=== PATIENT | male | born 1970 | race African-American/Black ===

== ENCOUNTER 2017-07-04 12:11 | Inpatient (IN) | payer OTHER ==
[2017-07-04 13:05] VITALS: BMI 36.6
--- NOTE | 2017-07-04 14:35 | HP ---
CIWA Score - CIWA Score Nausea/Vomitin Muscle Tremors: 3 Anxiety: 4-Mod. Anxious/Guarded Agitation: 2 Paroxysmal Sweats: 3 Orientation: 0-Oriented Tacttile Disturbances: 0-None Auditory Disturbances: 2-Mild Harshness/Frighten Visual Disturbances: 2-Mild Sensitivity Headache: 2-Mild CIWA-Ar Total Score: 20 Admission ROS S - HPI Chief Complaint: "I want to get better." Patient is here to Detox from Alcohol. Allergies/Adverse Reactions: Allergies Allergy/AdvReac Type Severity Reaction Status Date / Time Fish Containing Products Allergy Severe Difficulty Verified 07/04/17 14:00 Breathing peanut Allergy Severe Difficulty Verified 07/04/17 14:00 Breathing Penicillins Allergy Intermediate Hives Verified 07/04/17 14:00 History of Present Illness: Patient is a 47 YO male here to detox from alcohol. Patient had a previous detox admission at [facility] @ 2007. Longest period of sobriety in recent years: approx. 6 months (09/2016 - 02/2017). Exam Limitations: No Limitations - Ebola screening Have you traveled outside of the country in the last 21 days: No (N) Have you had contact with anyone from an Ebola affected area: No Have you been sick,other than usual withdrawal symptoms: No Do you have a fever: No - Review of Systems Constitutional: Chills, Diaphoresis, Fever, Loss of Appetite, Malaise, Night Sweats, Changes in sleep, Unintentional Wgt. Loss EENT: reports: No Symptoms Reported Respiratory: reports: No Symptoms reported Cardiac: reports: No Symptoms Reported GI: reports: Poor Appetite, Indigestion, Abdominal cramping : reports: No Symptoms Reported Musculoskeletal: reports: No Symptoms Reported Integumentary: reports: No Symptoms Reported Neuro: reports: Headache, Tremors Endocrine: reports: No Symptoms Reported Hematology: reports: No Symptoms Reported Psychiatric: reports: No Sypmtoms Reported, Judgement Intact, Mood/Affect Appropiate, Orientated x3, Anxious, Depressed (Only due to current circumstances.) Other Systems: Reviewed and Negative Patient History - Patient Medical History Hx Anemia: No Hx Asthma: No Hx Chronic Obstructive Pulmonary Disease (COPD): No Hx Cancer: No Hx Cardiac Disorders: No Hx Congestive Heart Failure: No Hx Hypertension: Yes (Takes HCTZ.) Hx Hypercholesterolemia: No Hx Pacemaker: No HX Cerebrovascular Accident: No Hx Seizures: No Hx Dementia: No Hx Diabetes: Yes (DM 2; On meds., Levemir Insulin.) Hx Gastrointestinal Disorders: No Hx Liver Disease: No Hx Genitourinary Disorders: No Hx Sexually Transmitted Disorders: No Hx Renal Disease (ESRD): No Hx Thyroid Disease: No Hx Human Immunodeficiency Virus (HIV): No (Last Tested: approx. 2 years ago: NEGATIVE.) Hx Hepatitis C: No (Uncertain if ever tested.) Hx Depression: Yes (Only due to current Life Circumstances.) Hx Suicide Attempt: No (PATIENT DENIES CURRENT SI / HI.) Hx Bipolar Disorder: No Hx Schizophrenia: No Other Medical History: DENIES. - Patient Surgical History Past Surgical History: No Hx Neurologic Surgery: No Hx Cataract Extraction: No Hx Cardiac Surgery: No Hx Lung Surgery: No Hx Breast Surgery: No Hx Breast Biopsy: No Hx Abdominal Surgery: No Hx Appendectomy: No Hx Cholecystectomy: No Hx Genitourinary Surgery: No Hx Orthopedic Surgery: No Other Surgical History: DENIES. Anesthesia Reaction: No - PPD History Previous Implant?: Yes Documented Results: Negative w/o proof Implanted On Prior [facility] Admission?: No PPD to be Administered?: Yes - Reproductive History Patient is a Female of Child Bearing Age (11 -55 yrs old): No (PATIENT IS MALE.) - Smoking Cessation Smoking history: Current every day smoker Have you smoked in the past 12 months: Yes Aproximately how many cigarettes per day: 5 Cigars Per Day: 0 Hx Chewing Tobacco Use: No Initiated information on smoking cessation: Yes 'Breaking Loose' booklet given: 07/04/17 (GIVEN ON UNIT.) - Substance & Tx. History Hx Alcohol Use: Yes Hx Substance Use: Yes Substance Use Type: Alcohol, Cocaine Hx Substance Use Treatment: Yes (1 Previous Detox admission at [facility] @ 2008.) - Substances Abused Alcohol Route: Oral Frequency: Daily Amount used: 2 PINT LIQUOR; 6PK BEER Age of first use: 20 Date of Last Use: 07/04/17 Cocaine Route: Inhalation Frequency: 1-2 times per week Amount used: $200 WEEKLY Age of first use: 29 Date of Last Use: 07/04/17 Family Disease History - Family Disease History Family Disease History: Diabetes: Mother, Other: Father (.) Admission Physical Exam S - Vital Signs Vital Signs: Vital Signs - 24 hr 07/04/17 13:03 Temperature 97.1 F L Pulse Rate 99 H Respiratory 20 Rate Blood Pressure 162/105 - Physical General Appearance: Yes: No Apparent Distress, Nourished, Appropriately Dressed , Tremorous, Anxious HEENTM: Yes: Hearing grossly Normal, Normocephalic, Normal Voice, [place], Pharynx Normal Respiratory: Yes: Chest Non-Tender, Lungs Clear, No Respiratory Distress, No Accessory Muscle Use Neck: Yes: No masses,lesions,Nodules, Supple, Trachea in good position Breast: Yes: Breast Exam Deferred Cardiology: Yes: Regular Rhythm, Regular Rate, S1, S2 Abdominal: Yes: Normal Bowel Sounds, Non Tender, Flat, Soft Genitourinary: Yes: Within Normal Limits Back: Yes: Normal Inspection Musculoskeletal: Yes: full range of Motion, Gait Steady Extremities: Yes: Normal Range of Motion, Non-Tender, Tremors Neurological: Yes: Fully Oriented, Alert, Normal Mood/Affect, Normal Response Integumentary: Yes: Normal Color, Dry, Warm Lymphatic: Yes: Within Normal Limits - Diagnostic (1) Alcohol dependence with uncomplicated withdrawal Current Visit: Yes Status: Acute (2) Cocaine dependence, uncomplicated Current Visit: Yes Status: Acute (3) Nicotine dependence Current Visit: Yes Status: Chronic Qualifiers: Nicotine product type: cigarettes Substance use status: uncomplicated Qualified Code(s): F17.210 - Nicotine dependence, cigarettes, uncomplicated (4) Hypertension Current Visit: Yes Status: Acute Qualifiers: Hypertension type: essential hypertension Qualified Code(s): I10 - Essential (primary) hypertension (5) Type II diabetes mellitus Current Visit: Yes Status: Chronic Qualifiers: Diabetes mellitus complication status: without complication Diabetes mellitus routing clerk insulin use: with routing clerk use Qualified Code(s): E11.9 - Type 2 diabetes mellitus without complications; Z79.4 - train starter (current) use of insulin; Z79.4 - correction (current) use of insulin; Z79.4 - correction ( current) use of insulin; Z79.4 - train starter (current) use of insulin Cleared for Admission S - Detox or Rehab [facility] Level of Care: Medically Managed Detox Regimen/Protocol: Librium [facility] Breath Alcohol Content Breath Alcohol Content: 0.053 Urine Drug Screen - Results Drug Screen Negative: No Urine Drug Screen Results: ANKUR-Cocaine, BZO-Benzodiazepines
[2017-07-04] MEDS ORDERED: P-EPHED 60MG/TRIPROLIDI 2.5MG TABLET PO PRN (15:05)
[2017-07-04] MEDS ORDERED: MENTHOL/PHENOL 1 EACH UD MM PRN (15:05)
[2017-07-04] MEDS ORDERED: guaiFENesin/D-METHORPHAN HB 10 ML UNIT-DOSE CUPS PO PRN (15:05)
[2017-07-04] MEDS ORDERED: ACETAMINOPHEN 325 MG TABLET (FP) PO PRN (15:05)
[2017-07-04] MEDS ORDERED: MAGNESIUM HYDROX 2400MG/30ML ORAL SUSPENSION 30 ML CUP PO PRN (15:05)
[2017-07-04] MEDS ORDERED: MAG HYDROX/AL HYDROX/SIMETH 30 ML UNIT-DOSE CUP PO PRN (15:05)
[2017-07-04] MEDS ORDERED: chlordiazePOXIDE HCL 25 MG CAPSULE PO PRN (15:05)
[2017-07-04] MEDS ORDERED: IBUPROFEN 400 MG TABLET (FP) PO PRN (15:05)
[2017-07-04] MEDS ORDERED: MAGNESIUM CITRATE 300 ML BOTTLE PO PRN (15:05)
[2017-07-04] MEDS ORDERED: LOPERAMIDE HCL 2 MG CAPSULE PO PRN (15:05)
[2017-07-04] MEDS ORDERED: chlordiazePOXIDE HCL 25 MG CAPSULE PO ONE (15:30)
[2017-07-04] MEDS: HYDROCHLOROTHIAZIDE 12.5 MG CAPSULE (FP) PO SCH (15:47)
[2017-07-04] MEDS ORDERED: INSULIN (NOVOLOG) ASPART 100 UNITS/ML 10ML VIAL ONE (16:47)
[2017-07-04] MEDS: metFORMIN HCL 500 MG TABLET (FP) PO SCH (18:02)
[2017-07-04] MEDS: chlordiazePOXIDE HCL 25 MG CAPSULE PO SCH ×2 (18:02→22:36)
[2017-07-04] MEDS: INSULIN SLIDING SCALE (NOVOLOG) 1 VIAL SQ SCH (18:04)
[2017-07-04 18:13] LABS: URINE APPEARANCE SLCLOUDY; URINE BILIRUBIN NEGATIVE (NEGATIVE); URINE BLOOD NEGATIVE (NEGATIVE); URINE COLOR YELLOW; URINE GLUCOSE (UA) NEGATIVE (NEGATIVE); URINE KETONE TRACE (NEGATIVE); URINE LEUK ESTERASE TRACE (NEGATIVE); URINE NITRITE NEGATIVE (NEGATIVE); URINE PROTEIN NEGATIVE (NEGATIVE)
[2017-07-04 18:30] LABS: EPI CELLS RARE /HPF (FEW); URINE MUCUS MANY
[2017-07-04] MEDS: THIAMINE HCL 100 MG TABLET (FP) PO SCH (22:36)
[2017-07-05] MEDS: chlordiazePOXIDE HCL 25 MG CAPSULE PO SCH ×4 (05:15→22:13)
[2017-07-05] MEDS: metFORMIN HCL 500 MG TABLET (FP) PO SCH ×2 (07:50→17:43)
[2017-07-05] MEDS: INSULIN SLIDING SCALE (NOVOLOG) 1 VIAL SQ SCH ×3 (07:50→17:44)
[2017-07-05] MEDS ORDERED: hydrOXYzine PAMOATE 50 MG CAPSULE (FP) PO PRN (09:00)
[2017-07-05 09:55] LABS: HEMATOCRIT 43.4 % (35.4-49); HEMOGLOBIN 14.1 GM/dL (11.7-16.9); MCH 27.2 pg (25.7-33.7); MCHC 32.4 g/dl (32.0-35.9); MEAN CELL VOLUME 83.9 fl (80-96); PLATELET COUNT 198 K/MM3 (134-434); RBC 5.18 M/mm3 (4.00-5.60); RDW 13.2 % (11.9-15.9); WHITE BLOOD COUNT 6.3 K/mm3 (4.0-10.0)
[2017-07-05] MEDS: PRENATAL VITAMINS W/ FOLIC ACID TABLET (FP) PO SCH (10:10)
[2017-07-05] MEDS: HYDROCHLOROTHIAZIDE 12.5 MG CAPSULE (FP) PO SCH (10:10)
[2017-07-05 10:11] LABS: ALBUMIN 4.2 g/dl (3.4-5.0); ANION GAP 11 (8-16); BLOOD UREA NITROGEN 12 mg/dL (7-18); CALCIUM 8.5 mg/dL (8.5-10.1); CHLORIDE 99 mmol/L (98-107); CO2 24 mmol/L (21-32); CREATININE 1.1 mg/dL (0.7-1.3); GLUCOSE,RANDOM 206 mg/dL (74-106); POTASSIUM 3.7 mmol/L (3.5-5.1); SGOT/AST 16 U/L (15-37); SGPT/ALT 26 U/L (12-78); SODIUM 134 mmol/L (136-145)
[2017-07-05 10:13] LABS: ALK PHOS 106 U/L (45-117); BILIRUBIN,TOTAL 1.3 mg/dL (0.2-1.0); TOT PROT 7.5 g/dl (6.4-8.2)
--- NOTE | 2017-07-05 10:17 | EKG ---
Test Reason : Blood Pressure : / mmHG Vent. Rate : 093 BPM Atrial Rate : 093 BPM P-R Int : 118 ms QRS Dur : 094 ms QT Int : 368 ms P-R-T Axes : 061 045 015 degrees QTc Int : 457 ms NORMAL SINUS RHYTHM NORMAL ECG NO PREVIOUS ECGS AVAILABLE Confirmed by RUDY JAMA MD ([id number]) on 07/05/2017 10:17:04 AM Referred By: Confirmed By:RUDY JAMA MD
--- NOTE | 2017-07-05 14:57 | PN ---
[facility] CIWA - CIWA Score Nausea/Vomitin-No Nausea/No Vomiting Muscle Tremors: None Anxiety: 4-Mod. Anxious/Guarded Agitation: 4-Moderately Restless Paroxysmal Sweats: 3 Orientation: 0-Oriented Tacttile Disturbances: 3-Moderate Itch/Numb/Burn Auditory Disturbances: 2-Mild Harshness/Frighten Visual Disturbances: 2-Mild Sensitivity Headache: 0-None Present CIWA-Ar Total Score: 18 S Progress Note (SOAP) Subjective: Sweating, Anxious, Diarrhea, Sweating. Objective: PT. A & O X 3, OBSERVED AMBULATING ON UNIT. NO ACUTE DISTRESS. 07/05/17 14:57 Vital Signs Temperature 97.0 F L 07/05/17 13:24 Pulse Rate 83 07/05/17 13:24 Respiratory Rate 18 07/05/17 13:24 Blood Pressure 132/83 07/05/17 13:24 O2 Sat by Pulse Oximetry (%) Laboratory Tests 07/04/17 07/04/17 07/04/17 14:37 16:29 17:00 WBC RBC Hgb Hct MCV MCH MCHC RDW Plt Count MPV Sodium Potassium Chloride Carbon Dioxide Anion Gap BUN Creatinine Creat Clearance w eGFR POC Glucometer 241 229 Random Glucose Calcium Total Bilirubin AST ALT Alkaline Phosphatase Total Protein Albumin Urine Color Yellow Urine Appearance Slcloudy Urine pH 5.0 Ur Specific [place] 1.019 Urine Protein Negative Urine Glucose (UA) Negative Urine Ketones Trace H Urine Blood Negative Urine Nitrite Negative Urine Bilirubin Negative Urine Urobilinogen 2.0 Ur Leukocyte Esterase Trace Urine WBC (Auto) 3 Urine RBC (Auto) <1 Ur Epithelial Cells Rare Urine Mucus Many RPR Titer 07/05/17 07/05/17 07/05/17 05:15 06:00 06:00 WBC 6.3 RBC 5.18 Hgb 14.1 Hct 43.4 MCV 83.9 MCH 27.2 MCHC 32.4 RDW 13.2 Plt Count 198 MPV 9.0 Sodium 134 L Potassium 3.7 Chloride 99 Carbon Dioxide 24 Anion Gap 11 BUN 12 Creatinine 1.1 Creat Clearance w eGFR > 60 POC Glucometer 181 Random Glucose 206 H Calcium 8.5 Total Bilirubin 1.3 H AST 16 ALT 26 Alkaline Phosphatase 106 Total Protein 7.5 Albumin 4.2 Urine Color Urine Appearance Urine pH Ur Specific [place] Urine Protein Urine Glucose (UA) Urine Ketones Urine Blood Urine Nitrite Urine Bilirubin Urine Urobilinogen Ur Leukocyte Esterase Urine WBC (Auto) Urine RBC (Auto) Ur Epithelial Cells Urine Mucus RPR Titer 07/05/17 06:00 WBC RBC Hgb Hct MCV MCH MCHC RDW Plt Count MPV Sodium Potassium Chloride Carbon Dioxide Anion Gap BUN Creatinine Creat Clearance w eGFR POC Glucometer Random Glucose Calcium Total Bilirubin AST ALT Alkaline Phosphatase Total Protein Albumin Urine Color Urine Appearance Urine pH Ur Specific [place] Urine Protein Urine Glucose (UA) Urine Ketones Urine Blood Urine Nitrite Urine Bilirubin Urine Urobilinogen Ur Leukocyte Esterase Urine WBC (Auto) Urine RBC (Auto) Ur Epithelial Cells Urine Mucus RPR Titer Nonreactive LABS NOTED. Assessment: 07/05/17 14:57 WITHDRAWAL SYMPTOMS. Plan: CONTINUE DETOX. INCREASE DAILY PO FLUID INTAKE. PRN IMMODIUM FOR DIARRHEA.
[2017-07-05] MEDS ORDERED: INSULIN (NOVOLOG) ASPART 100 UNITS/ML 10ML VIAL ONE (16:44)
[2017-07-05] MEDS: THIAMINE HCL 100 MG TABLET (FP) PO SCH (22:13)
[2017-07-06] MEDS: chlordiazePOXIDE HCL 25 MG CAPSULE PO SCH ×2 (07:14→10:09)
[2017-07-06] MEDS: INSULIN SLIDING SCALE (NOVOLOG) 1 VIAL SQ SCH ×3 (07:21→16:41)
[2017-07-06] MEDS: metFORMIN HCL 500 MG TABLET (FP) PO SCH ×2 (08:00→16:41)
[2017-07-06] MEDS: PRENATAL VITAMINS W/ FOLIC ACID TABLET (FP) PO SCH (10:09)
[2017-07-06] MEDS: HYDROCHLOROTHIAZIDE 12.5 MG CAPSULE (FP) PO SCH (10:09)
--- NOTE | 2017-07-06 15:51 | PN ---
[facility] CIWA - CIWA Score Nausea/Vomitin-No Nausea/No Vomiting Muscle Tremors: 2 Anxiety: 4-Mod. Anxious/Guarded Agitation: 3 Paroxysmal Sweats: 3 Orientation: 0-Oriented Tacttile Disturbances: 3-Moderate Itch/Numb/Burn Auditory Disturbances: 0-None Visual Disturbances: 0-None Headache: 0-None Present CIWA-Ar Total Score: 15 [facility] Progress Note (SOAP) Subjective: Tremors, Body Aches, Anxious, Sweating. Objective: PT. A & O X 3, OBSERVED AMBULATING ON UNIT. NO ACUTE DISTRESS. 07/06/17 15:50 Vital Signs Temperature 96.5 F L 07/06/17 09:39 Pulse Rate 90 07/06/17 09:39 Respiratory Rate 18 07/06/17 09:39 Blood Pressure 127/80 07/06/17 09:39 O2 Sat by Pulse Oximetry (%) Laboratory Tests 07/04/17 07/04/17 07/04/17 14:37 16:29 17:00 WBC RBC Hgb Hct MCV MCH MCHC RDW Plt Count MPV Sodium Potassium Chloride Carbon Dioxide Anion Gap BUN Creatinine Creat Clearance w eGFR POC Glucometer 241 229 Random Glucose Calcium Total Bilirubin AST ALT Alkaline Phosphatase Total Protein Albumin Urine Color Yellow Urine Appearance Slcloudy Urine pH 5.0 Ur Specific [place] 1.019 Urine Protein Negative Urine Glucose (UA) Negative Urine Ketones Trace H Urine Blood Negative Urine Nitrite Negative Urine Bilirubin Negative Urine Urobilinogen 2.0 Ur Leukocyte Esterase Trace Urine WBC (Auto) 3 Urine RBC (Auto) <1 Ur Epithelial Cells Rare Urine Mucus Many RPR Titer 07/05/17 07/05/17 07/05/17 05:15 06:00 06:00 WBC 6.3 RBC 5.18 Hgb 14.1 Hct 43.4 MCV 83.9 MCH 27.2 MCHC 32.4 RDW 13.2 Plt Count 198 MPV 9.0 Sodium 134 L Potassium 3.7 Chloride 99 Carbon Dioxide 24 Anion Gap 11 BUN 12 Creatinine 1.1 Creat Clearance w eGFR > 60 POC Glucometer 181 Random Glucose 206 H Calcium 8.5 Total Bilirubin 1.3 H AST 16 ALT 26 Alkaline Phosphatase 106 Total Protein 7.5 Albumin 4.2 Urine Color Urine Appearance Urine pH Ur Specific [place] Urine Protein Urine Glucose (UA) Urine Ketones Urine Blood Urine Nitrite Urine Bilirubin Urine Urobilinogen Ur Leukocyte Esterase Urine WBC (Auto) Urine RBC (Auto) Ur Epithelial Cells Urine Mucus RPR Titer 07/05/17 07/05/17 06:00 16:20 WBC RBC Hgb Hct MCV MCH MCHC RDW Plt Count MPV Sodium Potassium Chloride Carbon Dioxide Anion Gap BUN Creatinine Creat Clearance w eGFR POC Glucometer 226 Random Glucose Calcium Total Bilirubin AST ALT Alkaline Phosphatase Total Protein Albumin Urine Color Urine Appearance Urine pH Ur Specific [place] Urine Protein Urine Glucose (UA) Urine Ketones Urine Blood Urine Nitrite Urine Bilirubin Urine Urobilinogen Ur Leukocyte Esterase Urine WBC (Auto) Urine RBC (Auto) Ur Epithelial Cells Urine Mucus RPR Titer Nonreactive LABS NOTED. Assessment: 07/06/17 15:50 WITHDRAWAL SYMPTOMS. Plan: CONTINUE DETOX.
[2017-07-06] MEDS ORDERED: INSULIN (NOVOLOG) ASPART 100 UNITS/ML 10ML VIAL ONE (16:31)
[2017-07-06] MEDS: chlordiazePOXIDE 5 MG CAPSULE PO SCH ×2 (16:41→23:36)
[2017-07-06] MEDS: THIAMINE HCL 100 MG TABLET (FP) PO SCH (23:36)
[2017-07-07] MEDS: chlordiazePOXIDE 5 MG CAPSULE PO SCH ×2 (06:25→10:17)
[2017-07-07] MEDS: metFORMIN HCL 500 MG TABLET (FP) PO SCH ×2 (06:33→17:25)
[2017-07-07] MEDS: INSULIN SLIDING SCALE (NOVOLOG) 1 VIAL SQ SCH ×3 (06:33→17:25)
[2017-07-07] MEDS: HYDROCHLOROTHIAZIDE 12.5 MG CAPSULE (FP) PO SCH (10:17)
[2017-07-07] MEDS: PRENATAL VITAMINS W/ FOLIC ACID TABLET (FP) PO SCH (10:17)
--- NOTE | 2017-07-07 15:07 | PN ---
[facility] Progress Note (SOAP) Subjective: Anxious, Fatigue, Body Aches. Objective: PT A & O X 3, OBSERVED AMBULATING ON UNIT. NO ACUTE DISTRESS. 07/07/17 15:05 Vital Signs Temperature 98.1 F 07/07/17 09:50 Pulse Rate 88 07/07/17 09:50 Respiratory Rate 20 07/07/17 09:50 Blood Pressure 147/92 07/07/17 09:50 O2 Sat by Pulse Oximetry (%) Laboratory Tests 07/04/17 07/04/17 07/04/17 14:37 16:29 17:00 WBC RBC Hgb Hct MCV MCH MCHC RDW Plt Count MPV Sodium Potassium Chloride Carbon Dioxide Anion Gap BUN Creatinine Creat Clearance w eGFR POC Glucometer 241 229 Random Glucose Calcium Total Bilirubin AST ALT Alkaline Phosphatase Total Protein Albumin Urine Color Yellow Urine Appearance Slcloudy Urine pH 5.0 Ur Specific [place] 1.019 Urine Protein Negative Urine Glucose (UA) Negative Urine Ketones Trace H Urine Blood Negative Urine Nitrite Negative Urine Bilirubin Negative Urine Urobilinogen 2.0 Ur Leukocyte Esterase Trace Urine WBC (Auto) 3 Urine RBC (Auto) <1 Ur Epithelial Cells Rare Urine Mucus Many RPR Titer 07/05/17 07/05/17 07/05/17 05:15 06:00 06:00 WBC 6.3 RBC 5.18 Hgb 14.1 Hct 43.4 MCV 83.9 MCH 27.2 MCHC 32.4 RDW 13.2 Plt Count 198 MPV 9.0 Sodium 134 L Potassium 3.7 Chloride 99 Carbon Dioxide 24 Anion Gap 11 BUN 12 Creatinine 1.1 Creat Clearance w eGFR > 60 POC Glucometer 181 Random Glucose 206 H Calcium 8.5 Total Bilirubin 1.3 H AST 16 ALT 26 Alkaline Phosphatase 106 Total Protein 7.5 Albumin 4.2 Urine Color Urine Appearance Urine pH Ur Specific [place] Urine Protein Urine Glucose (UA) Urine Ketones Urine Blood Urine Nitrite Urine Bilirubin Urine Urobilinogen Ur Leukocyte Esterase Urine WBC (Auto) Urine RBC (Auto) Ur Epithelial Cells Urine Mucus RPR Titer 07/05/17 07/05/17 07/06/17 06:00 16:20 15:57 WBC RBC Hgb Hct MCV MCH MCHC RDW Plt Count MPV Sodium Potassium Chloride Carbon Dioxide Anion Gap BUN Creatinine Creat Clearance w eGFR POC Glucometer 226 364 Random Glucose Calcium Total Bilirubin AST ALT Alkaline Phosphatase Total Protein Albumin Urine Color Urine Appearance Urine pH Ur Specific [place] Urine Protein Urine Glucose (UA) Urine Ketones Urine Blood Urine Nitrite Urine Bilirubin Urine Urobilinogen Ur Leukocyte Esterase Urine WBC (Auto) Urine RBC (Auto) Ur Epithelial Cells Urine Mucus RPR Titer Nonreactive LABS NOTED. Assessment: 07/07/17 15:06 WITHDRAWAL SYMPTOMS. Plan: CONTINUE DETOX.
[2017-07-07] MEDS ORDERED: INSULIN (NOVOLOG) ASPART 100 UNITS/ML 10ML VIAL ONE (17:02)
[2017-07-07] MEDS: chlordiazePOXIDE HCL 10 MG CAPSULE PO SCH ×2 (17:27→23:01)
[2017-07-07 21:31] VITALS: BP 130/87; PULSE 102; TEMP 97.4
[2017-07-07] MEDS: THIAMINE HCL 100 MG TABLET (FP) PO SCH (23:01)
[2017-07-08] MEDS: chlordiazePOXIDE HCL 10 MG CAPSULE PO SCH (06:27)
[2017-07-08] MEDS: INSULIN SLIDING SCALE (NOVOLOG) 1 VIAL SQ SCH (06:31)
[2017-07-08] MEDS: metFORMIN HCL 500 MG TABLET (FP) PO SCH (06:31)
--- NOTE | 2017-07-08 11:57 | DS ---
[facility] Detox Discharge Summary Admission Date: 07/04/17 Discharge Date: 07/08/17 - History Present History: Alcohol Dependence, Cocaine Dependence Additional Comments: DETOX COMPLETED. PT D/C'D AND OUT OF UNIT EARLY TODAY. Pertinent Past History: DM HTN DEPRESSION - Physical Exam Results Vital Signs: Vital Signs Temperature 97.4 F L 07/07/17 21:30 Pulse Rate 102 H 07/07/17 21:30 Respiratory Rate 20 07/08/17 03:30 Blood Pressure 130/87 07/07/17 21:30 O2 Sat by Pulse Oximetry (%) Pertinent Admission Physical Exam Findings: WITHDRAWAL SX - Treatment Hospital Course: Detox Protocol Followed, Detoxed Safely, Responded well - Medication Discharge Medications: Ambulatory Orders Hydrochlorothiazide [Hctz -] 12.5 mg PO DAILY 07/04/17 Metformin HCl [Glucophage -] 500 mg PO BID 07/04/17 - Diagnosis (1) Alcohol dependence with uncomplicated withdrawal Status: Acute (2) Cocaine dependence, uncomplicated Status: Acute (3) Hypertension Status: Chronic Qualifiers: Hypertension type: essential hypertension Qualified Code(s): I10 - Essential (primary) hypertension (4) Nicotine dependence Status: Acute Qualifiers: Nicotine product type: cigarettes Substance use status: in withdrawal Qualified Code(s): F17.213 - Nicotine dependence, cigarettes, with withdrawal (5) Type II diabetes mellitus Status: Chronic Qualifiers: Diabetes mellitus complication status: without complication Diabetes mellitus skilled nursing insulin use: with skilled nursing use Qualified Code(s): E11.9 - Type 2 diabetes mellitus without complications; Z79.4 - shelter (current) use of insulin; Z79.4 - shelter (current) use of insulin; Z79.4 - shelter ( current) use of insulin; Z79.4 - shelter (current) use of insulin - AMA Did Patient Leave Against Medical Advice: No
== END 2017-07-08 07:58 | disposition home or self-care (01) | DRG 774 ==
LOC: YASAS 12:11 → Y3N 15:24
PROVIDERS: ADMIT Internal Medicine; ATTEND Internal Medicine
PROC: HZ2ZZZZ Detoxification Services for Substance Abuse Treatment (ICD-10-PCS; principal; 2017-07-04)
DX: F10.230 Alcohol dependence with withdrawal, uncomplicated (principal); F14.20 Cocaine dependence, uncomplicated; F17.213 Nicotine dependence, cigarettes, with withdrawal; I10 Essential (primary) hypertension; E11.9 Type 2 diabetes mellitus without complications; Z79.4 Long term (current) use of insulin; Z79.84 Long term (current) use of oral hypoglycemic drugs; Z91.010 Allergy to peanuts; Z91.013 Allergy to seafood
CPT/HCPCS: 36415; 80053; 81003; 81015; 82962; 85027; 86593; 93005; 93010

== ENCOUNTER 2017-10-03 11:08 | Inpatient (IN) | payer OTHER ==
[2017-10-03 12:27] VITALS: BMI 35.4
--- NOTE | 2017-10-03 14:09 | HP ---
CIWA Score - CIWA Score Nausea/Vomitin-Mild Nausea/No Vomiting Muscle Tremors: 4-Moderate,w/Arms Extend Anxiety: 4-Mod. Anxious/Guarded Agitation: 4-Moderately Restless Paroxysmal Sweats: 1-Minimal Palms Moist Orientation: 0-Oriented Tacttile Disturbances: 1-Very Mild Itch/Numbness Auditory Disturbances: 0-None Visual Disturbances: 0-None Headache: 0-None Present CIWA-Ar Total Score: 15 Admission ROS S - HPI Chief Complaint: withdrawal sx alcohol Allergies/Adverse Reactions: Allergies Allergy/AdvReac Type Severity Reaction Status Date / Time Fish Containing Products Allergy Severe Difficulty Verified 07/04/17 14:00 Breathing peanut Allergy Severe Difficulty Verified 07/04/17 14:00 Breathing Penicillins Allergy Intermediate Hives Verified 07/04/17 14:00 History of Present Illness: 47 years old male with long history of alcohol dependence has hypertension diabetes ii and depression is admitted to detox Exam Limitations: No Limitations - Ebola screening Have you traveled outside of the country in the last 21 days: No Have you had contact with anyone from an Ebola affected area: No Have you been sick,other than usual withdrawal symptoms: No Do you have a fever: No - Review of Systems Constitutional: Changes in sleep, Weight Stable EENT: reports: No Symptoms Reported Respiratory: reports: No Symptoms reported Cardiac: reports: No Symptoms Reported GI: reports: Nausea, Poor Fluid Intake, Abdominal cramping : reports: No Symptoms Reported Musculoskeletal: reports: Back Pain Integumentary: reports: No Symptoms Reported Neuro: reports: Tremors Endocrine: reports: Increased Urine Hematology: reports: No Symptoms Reported Psychiatric: reports: Judgement Intact, Orientated x3, Depressed Other Systems: Reviewed and Negative Patient History - Patient Medical History Hx Anemia: No Hx Asthma: No Hx Chronic Obstructive Pulmonary Disease (COPD): No Hx Cancer: No Hx Cardiac Disorders: No Hx Congestive Heart Failure: No Hx Hypertension: Yes (Takes HCTZ.) Hx Hypercholesterolemia: No Hx Pacemaker: No HX Cerebrovascular Accident: No Hx Seizures: No Hx Dementia: No Hx Diabetes: Yes (DM 2; On meds., Levemir Insulin.) Hx Gastrointestinal Disorders: No Hx Liver Disease: No Hx Genitourinary Disorders: No Hx Sexually Transmitted Disorders: No Hx Renal Disease (ESRD): No Hx Thyroid Disease: No Hx Human Immunodeficiency Virus (HIV): No (Last Tested: approx. 2 years ago: NEGATIVE.) Hx Hepatitis C: No (Uncertain if ever tested.) Hx Depression: Yes (Only due to current Life Circumstances.) Hx Suicide Attempt: No (PATIENT DENIES CURRENT SI / HI.) Hx Bipolar Disorder: No Hx Schizophrenia: No - Patient Surgical History Past Surgical History: No Hx Neurologic Surgery: No Hx Cataract Extraction: No Hx Cardiac Surgery: No Hx Lung Surgery: No Hx Breast Surgery: No Hx Breast Biopsy: No Hx Abdominal Surgery: No Hx Appendectomy: No Hx Cholecystectomy: No Hx Genitourinary Surgery: No Hx Orthopedic Surgery: No Other Surgical History: DENIES. - PPD History Previous Implant?: Yes Documented Results: Negative w/proof Implanted On Prior [facility] Admission?: Yes Date: 07/06/17 PPD to be Administered?: No - Smoking Cessation Smoking history: Former smoker Have you smoked in the past 12 months: No Aproximately how many cigarettes per day: 0 Cigars Per Day: 0 Hx Chewing Tobacco Use: No Initiated information on smoking cessation: No - Substance & Tx. History Hx Alcohol Use: Yes Hx Substance Use: Yes Substance Use Type: Alcohol Hx Substance Use Treatment: Yes (07/2017 [facility] - Substances Abused Alcohol Route: Oral Frequency: Daily Amount used: 3 pints vodka Age of first use: 9 Date of Last Use: 10/03/17 Family Disease History - Family Disease History Family Disease History: Diabetes: Mother (), Other: Father (.), Mother Admission Physical Exam S - Vital Signs Vital Signs: Vital Signs - 24 hr 10/03/17 12:07 Temperature 97.2 F L Pulse Rate 108 H Respiratory 20 Rate Blood Pressure 145/83 - Physical General Appearance: Yes: Nourished, Appropriately Dressed, Mild Distress, Tremorous, Irritable, Sweating, Anxious HEENTM: Yes: Hearing grossly Normal, Normocephalic, Normal Voice Respiratory: Yes: Chest Non-Tender, Lungs Clear, Normal Breath Sounds, No Respiratory Distress, No Accessory Muscle Use Neck: Yes: Supple, Trachea in good position Breast: Yes: Breasts Symetrical Cardiology: Yes: Regular Rhythm, S1, S2, Tachycardia (cocaine) Abdominal: Yes: Non Tender, Flat, Increased Bowel Sounds Genitourinary: Yes: Within Normal Limits Back: Yes: Normal Inspection Musculoskeletal: Yes: full range of Motion, Gait Steady, Back pain Extremities: Yes: Normal Inspection, Normal Range of Motion, Non-Tender, Tremors Neurological: Yes: Fully Oriented, Alert, Motor Strength 5/5, Normal Response, Depressed Affect Integumentary: Yes: Warm Lymphatic: Yes: Within Normal Limits - Diagnostic (1) Anxiety with depression Current Visit: Yes Status: Suspected (2) Alcohol dependence with uncomplicated withdrawal Current Visit: Yes Status: Acute (3) Hypertension Current Visit: Yes Status: Chronic Qualifiers: Hypertension type: essential hypertension Qualified Code(s): I10 - Essential (primary) hypertension (4) Type II diabetes mellitus Current Visit: Yes Status: Chronic Qualifiers: Diabetes mellitus intermediate insulin use: without ocean transportation intermediary use Diabetes mellitus complication status: without complication Qualified Code(s): E11.9 - Type 2 diabetes mellitus without complications Cleared for Admission [facility] - Detox or Rehab [facility] Level of Care: Medically Managed Detox Regimen/Protocol: Librium [facility] Breath Alcohol Content Breath Alcohol Content: 0.049 Urine Drug Screen - Results Drug Screen Negative: No Urine Drug Screen Results: ANKUR-Cocaine, BZO-Benzodiazepines
[2017-10-03] MEDS ORDERED: MAG HYDROX/AL HYDROX/SIMETH 30 ML UNIT-DOSE CUP PO PRN (14:21)
[2017-10-03] MEDS ORDERED: IBUPROFEN 400 MG TABLET (FP) PO PRN (14:21)
[2017-10-03] MEDS ORDERED: P-EPHED 60MG/TRIPROLIDI 2.5MG TABLET PO PRN (14:21)
[2017-10-03] MEDS ORDERED: guaiFENesin/D-METHORPHAN HB 10 ML UNIT-DOSE CUPS PO PRN (14:21)
[2017-10-03] MEDS ORDERED: MENTHOL/PHENOL 1 EACH UD MM PRN (14:21)
[2017-10-03] MEDS ORDERED: MAGNESIUM HYDROX 2400MG/30ML ORAL SUSPENSION 30 ML CUP PO PRN (14:21)
[2017-10-03] MEDS ORDERED: LOPERAMIDE HCL 2 MG CAPSULE PO PRN (14:21)
[2017-10-03] MEDS ORDERED: ACETAMINOPHEN 325 MG TABLET (FP) PO PRN (14:21)
[2017-10-03] MEDS ORDERED: chlordiazePOXIDE HCL 25 MG CAPSULE PO PRN (14:21)
[2017-10-03] MEDS ORDERED: MAGNESIUM CITRATE 300 ML BOTTLE PO PRN (14:21)
[2017-10-03] MEDS ORDERED: INSULIN (NOVOLOG) ASPART 100 UNITS/ML 10ML VIAL ONE (18:15)
[2017-10-03] MEDS: metFORMIN HCL 500 MG TABLET (FP) PO SCH (18:17)
[2017-10-03] MEDS: INSULIN SLIDING SCALE (NOVOLOG) 1 VIAL SQ SCH ×2 (18:18→22:57)
[2017-10-03] MEDS: THIAMINE HCL 100 MG TABLET (FP) PO SCH (22:34)
[2017-10-03] MEDS: chlordiazePOXIDE HCL 25 MG CAPSULE PO SCH (22:34)
[2017-10-03] MEDS: MELATONIN 5 MG TABLETS PO PRN (22:35)
[2017-10-04] MEDS: chlordiazePOXIDE HCL 25 MG CAPSULE PO SCH ×4 (06:56→22:22)
[2017-10-04] MEDS: metFORMIN HCL 500 MG TABLET (FP) PO SCH ×2 (07:00→18:10)
[2017-10-04 09:48] LABS: HEMATOCRIT 44.2 % (35.4-49); HEMOGLOBIN 14.8 GM/dL (11.7-16.9); MCH 28.1 pg (25.7-33.7); MCHC 33.6 g/dl (32.0-35.9); MEAN CELL VOLUME 83.8 fl (80-96); PLATELET COUNT 216 K/MM3 (134-434); RBC 5.27 M/mm3 (4.00-5.60); RDW 13.7 % (11.9-15.9); WHITE BLOOD COUNT 5.8 K/mm3 (4.0-10.0)
--- NOTE | 2017-10-04 09:51 | EKG ---
Test Reason : Blood Pressure : / mmHG Vent. Rate : 094 BPM Atrial Rate : 094 BPM P-R Int : 116 ms QRS Dur : 084 ms QT Int : 376 ms P-R-T Axes : 063 032 041 degrees QTc Int : 470 ms NORMAL SINUS RHYTHM NONSPECIFIC ST ABNORMALITY WHEN COMPARED WITH ECG OF 04-JUL-2017 15:57, NO SIGNIFICANT CHANGE WAS FOUND Confirmed by RUDY JAMA MD ([id number]) on 10/04/2017 9:51:09 AM Referred By: Confirmed By:RUDY JAMA MD
[2017-10-04] MEDS: INSULIN (LEVEMIR) 100 UNITS/ML UNITS SQ SCH (10:10)
[2017-10-04] MEDS: HYDROCHLOROTHIAZIDE 12.5 MG CAPSULE (FP) PO SCH (10:13)
[2017-10-04] MEDS: PRENATAL VITAMINS W/ FOLIC ACID TABLET (FP) PO SCH (10:13)
[2017-10-04] MEDS: INSULIN SLIDING SCALE (NOVOLOG) 1 VIAL SQ SCH ×3 (10:23→21:25)
[2017-10-04 10:51] LABS: CHLORIDE 98 mmol/L (98-107); POTASSIUM 4.4 mmol/L (3.5-5.1); SODIUM 133 mmol/L (136-145)
[2017-10-04 11:05] LABS: ALBUMIN 4.4 g/dl (3.4-5.0); ALK PHOS 123 U/L (45-117); ANION GAP 8 (8-16); BILIRUBIN,TOTAL 0.9 mg/dL (0.2-1.0); BLOOD UREA NITROGEN 17 mg/dL (7-18); CALCIUM 9.3 mg/dL (8.5-10.1); CO2 27 mmol/L (21-32); CREATININE 1.2 mg/dL (0.7-1.3); GLUCOSE,RANDOM 279 mg/dL (74-106); SGOT/AST 15 U/L (15-37); SGPT/ALT 26 U/L (12-78); TOT PROT 8.3 g/dl (6.4-8.2)
--- NOTE | 2017-10-04 13:43 | CONSULT ---
[facility] Psychiatric Consult - Data Date of interview: 10/04/17 Identifying data: Director Medical Economics approached patient for psychiatric consultation. Pt. refused. Patient stated to journalists and other writers, " nah i have nothing to say to you."
--- NOTE | 2017-10-04 13:44 | PN ---
S CIWA - CIWA Score Nausea/Vomitin Muscle Tremors: 3 Anxiety: 2 Agitation: 2 Paroxysmal Sweats: 1-Minimal Palms Moist Orientation: 0-Oriented Tacttile Disturbances: 1-Very Mild Itch/Numbness Auditory Disturbances: 1-Very Mild Visual Disturbances: 0-None Headache: 2-Mild CIWA-Ar Total Score: 15 S Progress Note (SOAP) Subjective: ALERT,IRRITABLE,ANXIOUS,INTERRUPTED SLEEP,TREMOR Objective: 10/04/17 13:42 Vital Signs Temperature 97.9 F 10/04/17 10:24 Pulse Rate 96 H 10/04/17 10:24 Respiratory Rate 18 10/04/17 10:24 Blood Pressure 143/81 10/04/17 10:24 O2 Sat by Pulse Oximetry (%) EKG NSR,NORMAL ECG,PROLONG QT 376/470 NO CHEST PAIN,NO SOB,NO DIZZINESS Laboratory Last Values WBC 5.8 K/mm3 (4.0-10.0) 10/04/17 06:00 RBC 5.27 M/mm3 (4.00-5.60) 10/04/17 06:00 Hgb 14.8 GM/dL (11.7-16.9) 10/04/17 06:00 Hct 44.2 % (35.4-49) 10/04/17 06:00 MCV 83.8 fl (80-96) 10/04/17 06:00 MCH 28.1 pg (25.7-33.7) 10/04/17 06:00 MCHC 33.6 g/dl (32.0-35.9) 10/04/17 06:00 RDW 13.7 % (11.9-15.9) 10/04/17 06:00 Plt Count 216 K/MM3 (134-434) 10/04/17 06:00 MPV 9.0 fl (7.5-11.1) 10/04/17 06:00 Sodium 133 mmol/L (136-145) L 10/04/17 06:00 Potassium 4.4 mmol/L (3.5-5.1) 10/04/17 06:00 Chloride 98 mmol/L (98-107) 10/04/17 06:00 Carbon Dioxide 27 mmol/L (21-32) 10/04/17 06:00 Anion Gap 8 (8-16) 10/04/17 06:00 BUN 17 mg/dL (7-18) D 10/04/17 06:00 Creatinine 1.2 mg/dL (0.7-1.3) 10/04/17 06:00 Creat Clearance w eGFR > 60 (>60) 10/04/17 06:00 POC Glucometer 276 UNITS (80-120) 10/04/17 06:58 Random Glucose 279 mg/dL (74-106) H D 10/04/17 06:00 Calcium 9.3 mg/dL (8.5-10.1) 10/04/17 06:00 Total Bilirubin 0.9 mg/dL (0.2-1.0) D 10/04/17 06:00 AST 15 U/L (15-37) 10/04/17 06:00 ALT 26 U/L (12-78) 10/04/17 06:00 Alkaline Phosphatase 123 U/L (45-117) H 10/04/17 06:00 Total Protein 8.3 g/dl (6.4-8.2) H 10/04/17 06:00 Albumin 4.4 g/dl (3.4-5.0) 10/04/17 06:00 RPR Titer Nonreactive (NONREACTIVE) 10/04/17 06:00 Assessment: 10/04/17 13:43 WITHDRAWAL SYMPTOM Plan: CONTINUE DETOX,BGM MONITORING
--- NOTE | 2017-10-04 21:33 | PN ---
[facility] Progress Note Note: Met w/ patient as he was refusing his BGM for this evening, despite having previously elevated levels. The effects of uncontrolled blood glucose levels were discussed, including circulatory problems resulting in potential vision loss and amputations. Patient agreed to BGM which was 420. Discussed the importance of continued monitoring and insulin coverage, along w/ Levemir and Metformin. Encouraged to inform PCP, when discharged, the blood glucose levels while at [facility] and to discuss future medication management. Patient verbalizes an understanding and states will take medications and f/u w/ PCP upon discharge.
[2017-10-04] MEDS: THIAMINE HCL 100 MG TABLET (FP) PO SCH (22:22)
[2017-10-04] MEDS: MELATONIN 5 MG TABLETS PO PRN (22:24)
[2017-10-05] MEDS: chlordiazePOXIDE HCL 25 MG CAPSULE PO SCH ×2 (06:15→10:46)
[2017-10-05] MEDS: metFORMIN HCL 500 MG TABLET (FP) PO SCH (07:31)
[2017-10-05] MEDS: INSULIN (LEVEMIR) 100 UNITS/ML UNITS SQ SCH (07:32)
[2017-10-05] MEDS: INSULIN SLIDING SCALE (NOVOLOG) 1 VIAL SQ SCH (07:32)
[2017-10-05] MEDS: HYDROCHLOROTHIAZIDE 12.5 MG CAPSULE (FP) PO SCH (10:45)
[2017-10-05] MEDS: PRENATAL VITAMINS W/ FOLIC ACID TABLET (FP) PO SCH (10:45)
--- NOTE | 2017-10-05 11:42 | PN ---
S CIWA - CIWA Score Nausea/Vomitin Muscle Tremors: 2 Anxiety: 2 Agitation: 2 Paroxysmal Sweats: 2 Orientation: 0-Oriented Tacttile Disturbances: 2-Mild Itch/Numbness/Burn Auditory Disturbances: 0-None Visual Disturbances: 0-None Headache: 2-Mild CIWA-Ar Total Score: 14 S Progress Note (SOAP) Subjective: Anxiety, interrupted sleep, restlessness Objective: 10/05/17 11:41 Vital Signs - 8 hr 10/05/17 10/05/17 06:20 10:00 Temperature 97.7 F 97.9 F Pulse Rate 81 88 Respiratory 18 18 Rate Blood Pressure 138/78 137/87 Laboratory Last Values WBC 5.8 K/mm3 (4.0-10.0) 10/04/17 06:00 RBC 5.27 M/mm3 (4.00-5.60) 10/04/17 06:00 Hgb 14.8 GM/dL (11.7-16.9) 10/04/17 06:00 Hct 44.2 % (35.4-49) 10/04/17 06:00 MCV 83.8 fl (80-96) 10/04/17 06:00 MCH 28.1 pg (25.7-33.7) 10/04/17 06:00 MCHC 33.6 g/dl (32.0-35.9) 10/04/17 06:00 RDW 13.7 % (11.9-15.9) 10/04/17 06:00 Plt Count 216 K/MM3 (134-434) 10/04/17 06:00 MPV 9.0 fl (7.5-11.1) 10/04/17 06:00 Sodium 133 mmol/L (136-145) L 10/04/17 06:00 Potassium 4.4 mmol/L (3.5-5.1) 10/04/17 06:00 Chloride 98 mmol/L (98-107) 10/04/17 06:00 Carbon Dioxide 27 mmol/L (21-32) 10/04/17 06:00 Anion Gap 8 (8-16) 10/04/17 06:00 BUN 17 mg/dL (7-18) D 10/04/17 06:00 Creatinine 1.2 mg/dL (0.7-1.3) 10/04/17 06:00 Creat Clearance w eGFR > 60 (>60) 10/04/17 06:00 POC Glucometer 316 UNITS (80-120) 10/05/17 07:23 Random Glucose 279 mg/dL (74-106) H D 10/04/17 06:00 Calcium 9.3 mg/dL (8.5-10.1) 10/04/17 06:00 Total Bilirubin 0.9 mg/dL (0.2-1.0) D 10/04/17 06:00 AST 15 U/L (15-37) 10/04/17 06:00 ALT 26 U/L (12-78) 10/04/17 06:00 Alkaline Phosphatase 123 U/L (45-117) H 10/04/17 06:00 Total Protein 8.3 g/dl (6.4-8.2) H 10/04/17 06:00 Albumin 4.4 g/dl (3.4-5.0) 10/04/17 06:00 RPR Titer Nonreactive (NONREACTIVE) 10/04/17 06:00 Labs noted Assessment: 10/05/17 11:42 Withdrawal sx Plan: Continue detox
[2017-10-05 14:04] VITALS: BP 131/81; PULSE 91; TEMP 97.3
--- NOTE | 2017-10-05 18:17 | DS ---
[facility] Detox Discharge Summary Admission Date: 10/03/17 Discharge Date: 10/05/17 - History Present History: Alcohol Dependence, Cannabis Dependence Pertinent Past History: HTN, DM - Physical Exam Results Vital Signs: Vital Signs Temperature 97.3 F L 10/05/17 14:03 Pulse Rate 91 H 10/05/17 14:03 Respiratory Rate 20 10/05/17 14:03 Blood Pressure 131/81 10/05/17 14:03 O2 Sat by Pulse Oximetry (%) Pertinent Admission Physical Exam Findings: Withdrawal sx Laboratory Last Values WBC 5.8 K/mm3 (4.0-10.0) 10/04/17 06:00 RBC 5.27 M/mm3 (4.00-5.60) 10/04/17 06:00 Hgb 14.8 GM/dL (11.7-16.9) 10/04/17 06:00 Hct 44.2 % (35.4-49) 10/04/17 06:00 MCV 83.8 fl (80-96) 10/04/17 06:00 MCH 28.1 pg (25.7-33.7) 10/04/17 06:00 MCHC 33.6 g/dl (32.0-35.9) 10/04/17 06:00 RDW 13.7 % (11.9-15.9) 10/04/17 06:00 Plt Count 216 K/MM3 (134-434) 10/04/17 06:00 MPV 9.0 fl (7.5-11.1) 10/04/17 06:00 Sodium 133 mmol/L (136-145) L 10/04/17 06:00 Potassium 4.4 mmol/L (3.5-5.1) 10/04/17 06:00 Chloride 98 mmol/L (98-107) 10/04/17 06:00 Carbon Dioxide 27 mmol/L (21-32) 10/04/17 06:00 Anion Gap 8 (8-16) 10/04/17 06:00 BUN 17 mg/dL (7-18) D 10/04/17 06:00 Creatinine 1.2 mg/dL (0.7-1.3) 10/04/17 06:00 Creat Clearance w eGFR > 60 (>60) 10/04/17 06:00 POC Glucometer 316 UNITS (80-120) 10/05/17 07:23 Random Glucose 279 mg/dL (74-106) H D 10/04/17 06:00 Calcium 9.3 mg/dL (8.5-10.1) 10/04/17 06:00 Total Bilirubin 0.9 mg/dL (0.2-1.0) D 10/04/17 06:00 AST 15 U/L (15-37) 10/04/17 06:00 ALT 26 U/L (12-78) 10/04/17 06:00 Alkaline Phosphatase 123 U/L (45-117) H 10/04/17 06:00 Total Protein 8.3 g/dl (6.4-8.2) H 10/04/17 06:00 Albumin 4.4 g/dl (3.4-5.0) 10/04/17 06:00 RPR Titer Nonreactive (NONREACTIVE) 10/04/17 06:00 Labs noted - Medication Discharge Medications: Ambulatory Orders Hydrochlorothiazide [Hctz -] 12.5 mg PO DAILY 07/04/17 metFORMIN HCL [Glucophage -] 500 mg PO BID 07/04/17 Insulin Detemir [Levemir Flextouch] 10 unit SQ ACBK 10/03/17 - Diagnosis (1) Alcohol dependence with uncomplicated withdrawal Status: Acute (2) Type II diabetes mellitus Status: Acute Qualifiers: Diabetes mellitus [facility] insulin use: unspecified 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 Diabetes mellitus complication status: with hyperglycemia Qualified Code(s): E11.65 - Type 2 diabetes mellitus with hyperglycemia (3) Hypertension Status: Chronic Qualifiers: Hypertension type: essential hypertension Qualified Code(s): I10 - Essential (primary) hypertension (4) Anxiety with depression Status: Suspected (5) Cocaine dependence, uncomplicated Status: Acute (6) Nicotine dependence Status: Acute Qualifiers: Nicotine product type: cigarettes Substance use status: uncomplicated Qualified Code(s): F17.210 - Nicotine dependence, cigarettes, uncomplicated - AMA Did Patient Leave Against Medical Advice: Yes
[2017-10-05] MEDS ORDERED: chlordiazePOXIDE 5 MG CAPSULE PO SCH (23:00)
[2017-10-06] MEDS ORDERED: chlordiazePOXIDE HCL 10 MG CAPSULE PO SCH (23:00)
== END 2017-10-05 17:03 | disposition left against medical advice (07) | DRG 770 ==
LOC: YASAS 11:08 → Y6N 15:47
PROVIDERS: ADMIT Surgery; ATTEND Surgery
PROC: HZ2ZZZZ Detoxification Services for Substance Abuse Treatment (ICD-10-PCS; principal; 2017-10-03)
DX: F10.230 Alcohol dependence with withdrawal, uncomplicated (principal); F14.20 Cocaine dependence, uncomplicated; F17.210 Nicotine dependence, cigarettes, uncomplicated; F41.8 Other specified anxiety disorders; I10 Essential (primary) hypertension; E11.65 Type 2 diabetes mellitus with hyperglycemia; Z79.4 Long term (current) use of insulin
CPT/HCPCS: 36415; 80053; 82962; 85027; 86593; 93005; 93010

== ENCOUNTER 2019-06-25 18:04 | Inpatient (IN) | payer OTHER ==
[2019-06-25 20:58] VITALS: BMI 39.4
--- NOTE | 2019-06-26 04:05 | HP ---
CIWA Score Nausea/Vomitin (vomiting x 1) Muscle Tremors: 4-Moderate,w/Arms Extend Anxiety: 3 Agitation: 3 Paroxysmal Sweats: 2 Orientation: 0-Oriented Tacttile Disturbances: 0-None Auditory Disturbances: 0-None Visual Disturbances: 0-None Headache: 3-Moderate CIWA-Ar Total Score: 17 - Admission Criteria [facility]ASAS Guidelines: Admission for Medically Managed Detox: Requires at least one of the followin. CIWA greater than 12 2. Seizures within the past 24 hours 3. Delirium tremens within the past 24 hours 4. Hallucinations within the past 24 hours 5. Acute intervention needed for co occurring medical disorder 6. Acute intervention needed for co occurring psychiatric disorder 7. Severe withdrawal that cannot be handled at a lower level of care (continued vomiting, continued diarrhea, abnormal vital signs) requiring intravenous medication and/or fluids 8. Admitting History and Physical - Smoking History Smoking history: Former smoker Have you smoked in the past 12 months: No Aproximately how many cigarettes per day: 0 - Alcohol/Substance Use Hx Alcohol Use: Yes Admission ROS [facility] - [facility] Chief Complaint: Alcohol withdrawal symptoms Allergies/Adverse Reactions: Allergies Allergy/AdvReac Type Severity Reaction Status Date / Time Fish Containing Products Allergy Severe Difficulty Verified 06/25/19 20:44 Breathing peanut Allergy Severe Difficulty Verified 06/25/19 20:44 Breathing Penicillins Allergy Intermediate Hives Verified 06/25/19 20:44 History of Present Illness: 49 years old male with a long history of alcohol dependence is seeking admission to detox. Patient last detox was for the period 10/03/2017 - 2018 and he reports 9 months of sobriety. He reports medical history of hypertension, DM type 2 and denies psych. history and suicidal ideation at this time. 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 Exam Limitations: No Limitations - Ebola screening Have you traveled outside of the country in the last 21 days: No (N) Have you had contact with anyone from an Ebola affected area: No Do you have a fever: No - Review of Systems Constitutional: Chills, Malaise, Night Sweats, Changes in sleep EENT: reports: Nose Congestion Respiratory: reports: No Symptoms reported Cardiac: reports: No Symptoms Reported GI: reports: Nausea, Poor Appetite, Poor Fluid Intake, Vomiting, Abdominal cramping : reports: No Symptoms Reported Musculoskeletal: reports: Neck Pain Integumentary: reports: Dryness, Flushing Neuro: reports: Headache, Tremors Endocrine: reports: No Symptoms Reported Hematology: reports: No Symptoms Reported Psychiatric: reports: Mood/Affect Appropiate, Orientated x3 Other Systems: Reviewed and Negative Patient History - Patient Medical History Hx Anemia: No Hx Asthma: No Hx Chronic Obstructive Pulmonary Disease (COPD): No Hx Cancer: No Hx Cardiac Disorders: No Hx Congestive Heart Failure: No Hx Hypertension: Yes Hx Hypercholesterolemia: No Hx Pacemaker: No HX Cerebrovascular Accident: No Hx Seizures: No Hx Dementia: No Hx Diabetes: Yes (DM TYPE 2) Hx Gastrointestinal Disorders: No Hx Liver Disease: No Hx Genitourinary Disorders: No Hx Sexually Transmitted Disorders: No Hx Renal Disease (ESRD): No Hx Thyroid Disease: No Hx Human Immunodeficiency Virus (HIV): No (NEGATIVE 2019) Hx Hepatitis C: No (Uncertain if ever tested.) Hx Depression: No Hx Suicide Attempt: No (Denies suicidal ideation at thisv time) Hx Bipolar Disorder: No Hx Schizophrenia: No - Patient Surgical History Past Surgical History: No Hx Neurologic Surgery: No Hx Cataract Extraction: No Hx Cardiac Surgery: No Hx Lung Surgery: No Hx Breast Surgery: No Hx Breast Biopsy: No Hx Abdominal Surgery: No Hx Appendectomy: No Hx Cholecystectomy: No Hx Genitourinary Surgery: No Hx Orthopedic Surgery: No Other Surgical History: DENIES. Anesthesia Reaction: No - PPD History Previous Implant?: Yes Documented Results: Negative w/proof Implanted On Prior [facility] Admission?: Yes Date: 07/06/17 PPD to be Administered?: Yes - Reproductive History Patient is a Female of Child Bearing Age (11 -55 yrs old): No (male) - Smoking Cessation Smoking history: Former smoker Have you smoked in the past 12 months: No Aproximately how many cigarettes per day: 0 Cigars Per Day: 0 Hx Chewing Tobacco Use: No Initiated information on smoking cessation: No - Substance & Tx. History Hx Alcohol Use: Yes Hx Substance Use: No Substance Use Type: Alcohol Hx Substance Use Treatment: Yes ([facility]) - Substances abused Alcohol Substance route: Oral Frequency: Daily Amount used: 2 6 packs of beer , then 2 pints of vodka Age of first use: 8 Date of last use: 06/25/19 Admission Physical Exam BHS - Vital Signs Vital Signs: Vital Signs - 24 hr 06/25/19 20:43 Temperature 97.8 F Pulse Rate 108 H Respiratory 16 Rate Blood Pressure 121/78 - Physical General Appearance: Yes: Moderate Distress, Tremorous, Sweating HEENTM: Yes: Within Normal Limits Respiratory: Yes: Lungs Clear, Normal Breath Sounds, No Respiratory Distress Neck: Yes: Within Normal Limits Breast: Yes: Breast Exam Deferred Cardiology: Yes: Tachycardia Abdominal: Yes: Normal Bowel Sounds, Soft Genitourinary: Yes: Within Normal Limits Back: Yes: Normal Inspection Musculoskeletal: Yes: Other (neck pain) Extremities: Yes: Tremors Neurological: Yes: Within Normal Limits, Alert, Normal Mood/Affect Integumentary: Yes: Warm Lymphatic: Yes: Within Normal Limits - Diagnostic (1) Alcohol dependence with uncomplicated withdrawal Current Visit: Yes Status: Acute (2) Nicotine dependence Current Visit: Yes Status: Chronic Qualifiers: Nicotine product type: cigarettes Substance use status: in withdrawal Qualified Code(s): F17.213 - Nicotine dependence, cigarettes, with withdrawal (3) Type II diabetes mellitus Current Visit: Yes Status: Chronic Qualifiers: Diabetes mellitus [facility] insulin use: unspecified medical 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 insulin use status Diabetes mellitus complication status: with hyperglycemia Qualified Code(s): E11.65 - Type 2 diabetes mellitus with hyperglycemia (4) Hypertension Current Visit: Yes Status: Chronic Qualifiers: Hypertension type: essential hypertension Qualified Code(s): I10 - Essential (primary) hypertension Cleared for Admission [facility] - Detox or Rehab [facility] Level of Care: Medically Managed Detox Regimen/Protocol: Librium Claeared for Rehab Admission: No Breathalyzer - Breathalyzer Breathalyzer: 0.023 Urine Drug Screen - Test Device Lot number: [id number] Expiration date: 12/30/20 - Control Is test valid?: Yes - Results Drug screen NEGATIVE: Yes Inpatient Rehab Admission - Rehab Decision to Admit Inpatient rehab admission?: No
[2019-06-26] MEDS ORDERED: MAG HYDROX/AL HYDROX/SIMETH 30 ML UNIT-DOSE CUP PO PRN (04:15)
[2019-06-26] MEDS ORDERED: BISMUTH SUBSALICYLATE 524 MG/30 ML UD PO PRN (04:15)
[2019-06-26] MEDS ORDERED: MAGNESIUM HYDROX 2400MG/30ML ORAL SUSPENSION 30 ML CUP PO PRN (04:15)
[2019-06-26] MEDS ORDERED: chlordiazePOXIDE HCL 25 MG CAPSULE PO PRN (04:15)
[2019-06-26] MEDS ORDERED: IBUPROFEN 400 MG TABLET (FP) PO PRN (04:15)
[2019-06-26] MEDS ORDERED: MENTHOL/PHENOL 1 EACH UD MM PRN (04:15)
[2019-06-26] MEDS ORDERED: METHOCARBAMOL 500 MG TABLET PO PRN (04:15)
[2019-06-26] MEDS ORDERED: ACETAMINOPHEN 325 MG TABLET (FP) PO PRN ×2 (04:15)
[2019-06-26] MEDS ORDERED: MELATONIN 5 MG TABLETS PO PRN (04:15)
[2019-06-26] MEDS ORDERED: hydrOXYzine PAMOATE 25 MG CAPSULE (FP) PO PRN (04:15)
[2019-06-26] MEDS ORDERED: MAGNESIUM CITRATE 300 ML BOTTLE PO PRN (04:15)
[2019-06-26] MEDS: chlordiazePOXIDE HCL 25 MG CAPSULE PO SCH ×4 (05:25→22:37)
[2019-06-26] MEDS: metFORMIN HCL 500 MG TABLET (FP) PO SCH ×2 (06:44→16:54)
[2019-06-26] MEDS: HYDROCHLOROTHIAZIDE 12.5 MG CAPSULE (FP) PO SCH (10:44)
[2019-06-26] MEDS: PRENATAL VITAMINS W/ FOLIC ACID TABLET (FP) PO SCH (10:44)
[2019-06-26] MEDS: ASPIRIN 81 MG CHEWABLE TABLETS PO SCH (10:44)
--- NOTE | 2019-06-26 13:40 | EKG ---
Test Reason : Blood Pressure : / mmHG Vent. Rate : 097 BPM Atrial Rate : 097 BPM P-R Int : 120 ms QRS Dur : 102 ms QT Int : 376 ms P-R-T Axes : 064 030 048 degrees QTc Int : 477 ms NORMAL SINUS RHYTHM WHEN COMPARED WITH ECG OF 26-JUN-2019 04:26, PREMATURE VENTRICULAR COMPLEXES ARE NO LONGER PRESENT Confirmed by RUDY JAMA MD ([id number]) on 06/26/2019 1:40:45 PM Referred By: Confirmed By:RUDY JAMA MD
--- NOTE | 2019-06-26 13:40 | PN ---
S CIWA - CIWA Score Nausea/Vomitin-No Nausea/No Vomiting Muscle Tremors: 3 Anxiety: 2 Agitation: 3 Paroxysmal Sweats: 2 Orientation: 0-Oriented Tacttile Disturbances: 0-None Auditory Disturbances: 0-None Visual Disturbances: 0-None Headache: 0-None Present CIWA-Ar Total Score: 10 BHS Progress Note (SOAP) Subjective: irritable shakes sweats restless Objective: 06/26/19 13:39 Vital Signs Temperature 97.7 F 06/26/19 09:48 Pulse Rate 98 H 06/26/19 09:48 Respiratory Rate 19 06/26/19 09:48 Blood Pressure 154/83 06/26/19 09:48 O2 Sat by Pulse Oximetry (%) Laboratory Tests 06/26/19 05:12 POC Glucometer 107 rest of labs pending aaox3 ambulating no acute distress Assessment: 06/26/19 13:40 withdrawals Plan: continue detox increase fluids psych ordered for seroquel
--- NOTE | 2019-06-26 13:41 | EKG ---
Test Reason : Blood Pressure : / mmHG Vent. Rate : 087 BPM Atrial Rate : 087 BPM P-R Int : 122 ms QRS Dur : 104 ms QT Int : 388 ms P-R-T Axes : 063 033 034 degrees QTc Int : 466 ms SINUS RHYTHM WITH OCCASIONAL PREMATURE VENTRICULAR COMPLEXES OTHERWISE NORMAL ECG WHEN COMPARED WITH ECG OF 03-OCT-2017 18:44, PREMATURE VENTRICULAR COMPLEXES ARE NOW PRESENT Confirmed by RUDY JAMA MD ([id number]) on 06/26/2019 1:41:20 PM Referred By: LEATHA MASON CARTRIDGE ASSEMBLER Confirmed By:RUDY JAMA MD
[2019-06-26] MEDS: THIAMINE HCL 100 MG TABLET (FP) PO SCH (22:37)
[2019-06-26] MEDS: INSULIN (LEVEMIR) 100 UNITS/ML UNITS SQ SCH (22:37)
[2019-06-27] MEDS: chlordiazePOXIDE HCL 25 MG CAPSULE PO SCH ×4 (06:00→22:27)
[2019-06-27] MEDS: metFORMIN HCL 500 MG TABLET (FP) PO SCH ×2 (07:18→17:19)
--- NOTE | 2019-06-27 10:55 | CONSULT ---
[facility] Psychiatric Consult - Data Date of interview: 06/27/19 Admission source: [facility] Identifying data: Patient is a 49 year old single male, without children, unemployed, homeless, and is not currently receiving financial assistance. This is one of multiple admissions for patient. Patient admitted to for alcohol dependence. Substance Abuse History: - Smoking Cessation. Smoking history: Former smoker. Have you smoked in the past 12 months: No. Aproximately how many cigarettes per day: 0. Cigars Per Day: 0. Hx Chewing Tobacco Use: No. Initiated information on smoking cessation: No. - Substance & Tx. History. Hx Alcohol Use: Yes. Hx Substance Use: No. Substance Use Type: Alcohol. Hx Substance Use Treatment: Yes ([facility]). - Substances abused. Alcohol. Substance route: Oral. Frequency: Daily. Amount used: 2 6 packs of beer , then 2 pints of vodka. Age of first use: 8. Date of last use: 06/25/19 Medical History: Types II Diabetes. Psychiatric History: Patient denies history of psychiatric hospitalization and suicide attempt. Reports multiple CPEP admissions at [facility] for depression. States that he has been discharged from the CPEP with a prescription of lexapro (unknown dose) and seroquel 50mg HS. Reports most recently taking psychotropic medications last year. Mr. Velasco is totally lost in psychatric follow up care. At present patient patient reports difficulty sleeping. Physical/Sexual Abuse/Trauma History: denies. Mental Status Exam - Mental Status Exam Alert and Oriented to: Time, Place, Person Cognitive Function: Good Patient Appearance: Well Groomed Mood: Withdrawn Affect: Mood Congruent Patient Behavior: Appropriate, Cooperative Speech Pattern: Appropriate Voice Loudness: Normal Thought Process: Goal Oriented Thought Disorder: Not Present Hallucinations: Denies Suicidal Ideation: Denies Homicidal Ideation: Denies Insight/Judgement: Poor Sleep: Poorly Appetite: Fair Muscle strength/Tone: Normal Gait/Station: Normal Psychiatric Findings - Problem List ([place] 1, 2,3) (1) Substance-induced sleep disorder Status: Acute (2) Alcohol dependence with uncomplicated withdrawal Status: Acute (3) Nicotine dependence Status: Chronic Qualifiers: Nicotine product type: cigarettes Substance use status: in withdrawal Qualified Code(s): F17.213 - Nicotine dependence, cigarettes, with withdrawal - Initial Treatment Plan Initial Treatment Plan: Psychoeducation provided. Detoxification in progress. Will order Seroquel 50mg HS. Benefits and side effects discussed. Verbal consent given.
[2019-06-27 11:09] LABS: MCH 27.9 pg (25.7-33.7); MCHC 33.3 g/dl (32.0-35.9); MEAN CELL VOLUME 83.8 fl (80-96); MEAN PLT VOLUME 8.7 fl (7.5-11.1); PLATELET COUNT 181 K/MM3 (134-434); RBC 5.01 M/mm3 (4.00-5.60); RDW 13.4 % (11.9-15.9); WHITE BLOOD COUNT 3.8 K/mm3 (4.0-10.0)
[2019-06-27] MEDS: PRENATAL VITAMINS W/ FOLIC ACID TABLET (FP) PO SCH (11:15)
[2019-06-27] MEDS: ASPIRIN 81 MG CHEWABLE TABLETS PO SCH (11:15)
[2019-06-27] MEDS: HYDROCHLOROTHIAZIDE 12.5 MG CAPSULE (FP) PO SCH (11:15)
[2019-06-27 11:32] LABS: ALBUMIN 3.8 g/dl (3.4-5.0); BILIRUBIN,TOTAL 0.6 mg/dL (0.2-1); BLOOD UREA NITROGEN 14.8 mg/dL (7-18); CALCIUM 8.7 mg/dL (8.5-10.1); CREATININE 0.8 mg/dL (0.55-1.3); POTASSIUM 4.2 mmol/L (3.5-5.1); TOT PROT 7.1 g/dl (6.4-8.2)
--- NOTE | 2019-06-27 14:52 | PN ---
S CIWA - CIWA Score Nausea/Vomitin-No Nausea/No Vomiting Muscle Tremors: None Anxiety: 2 Agitation: 2 Paroxysmal Sweats: 3 Orientation: 0-Oriented Tacttile Disturbances: 0-None Auditory Disturbances: 2-Mild Harshness/Frighten Visual Disturbances: 1-Very Mild Sensitivity Headache: 0-None Present CIWA-Ar Total Score: 10 S Progress Note (SOAP) Subjective: Sweating, Anxious, Insomnia. Objective: PATIENT A & O X 3, OBSERVED AMBULATING ON DETOX UNIT UNASSISTED. IN NO ACUTE DISTRESS. 06/27/19 14:49 Vital Signs Temperature 96.8 F L 06/27/19 10:00 Pulse Rate 95 H 06/27/19 10:00 Respiratory Rate 18 06/27/19 10:00 Blood Pressure 156/99 06/27/19 10:00 O2 Sat by Pulse Oximetry (%) Laboratory Tests 06/26/19 06/26/19 06/26/19 05:12 16:20 22:31 WBC RBC Hgb Hct MCV MCH MCHC RDW Plt Count MPV Sodium Potassium Chloride Carbon Dioxide Anion Gap BUN Creatinine Est GFR (CKD-EPI)AfAm Est GFR (CKD-EPI)NonAf POC Glucometer 107 165 282 Random Glucose Calcium Total Bilirubin AST ALT Alkaline Phosphatase Total Protein Albumin 06/27/19 06/27/19 06/27/19 07:14 08:00 08:00 WBC 3.8 L RBC 5.01 Hgb 14.0 Hct 42.0 MCV 83.8 MCH 27.9 MCHC 33.3 RDW 13.4 Plt Count 181 MPV 8.7 Sodium 136 Potassium 4.2 Chloride 102 Carbon Dioxide 29 Anion Gap 5 L BUN 14.8 Creatinine 0.8 Est GFR (CKD-EPI)AfAm 120.72 Est GFR (CKD-EPI)NonAf 104.16 POC Glucometer 199 Random Glucose 192 H Calcium 8.7 Total Bilirubin 0.6 AST 18 ALT 50 Alkaline Phosphatase 231 H Total Protein 7.1 Albumin 3.8 LABS NOTED. Assessment: 06/27/19 14:51 WITHDRAWAL SYMPTOMS. ELEVATED ALK. PHOS. LEVEL. Plan: CONTINUE DETOX. INCREASE DAILY ORAL WATER INTAKE. REPEAT ALK. PHOS. LEVEL ORDERED FOR 06/29/2019.
[2019-06-27] MEDS: QUEtiapine FUMARATE 50 MG TABLET PO SCH (22:27)
[2019-06-27] MEDS: THIAMINE HCL 100 MG TABLET (FP) PO SCH (22:27)
[2019-06-27] MEDS: INSULIN (LEVEMIR) 100 UNITS/ML UNITS SQ SCH (22:29)
[2019-06-28] MEDS ORDERED: chlordiazePOXIDE HCL 10 MG CAPSULE PO PRN
[2019-06-28] MEDS: chlordiazePOXIDE HCL 10 MG CAPSULE PO SCH ×4 (05:54→22:21)
[2019-06-28] MEDS: metFORMIN HCL 500 MG TABLET (FP) PO SCH ×2 (06:12→17:36)
[2019-06-28] MEDS: ASPIRIN 81 MG CHEWABLE TABLETS PO SCH (10:39)
[2019-06-28] MEDS: PRENATAL VITAMINS W/ FOLIC ACID TABLET (FP) PO SCH (10:39)
[2019-06-28] MEDS: HYDROCHLOROTHIAZIDE 12.5 MG CAPSULE (FP) PO SCH (10:39)
--- NOTE | 2019-06-28 12:19 | PN ---
S CIWA - CIWA Score Nausea/Vomitin-No Nausea/No Vomiting Muscle Tremors: 2 Anxiety: 2 Agitation: 2 Paroxysmal Sweats: 2 Orientation: 0-Oriented Tacttile Disturbances: 0-None Auditory Disturbances: 0-None Visual Disturbances: 0-None Headache: 0-None Present CIWA-Ar Total Score: 8 BHS Progress Note (SOAP) Subjective: Sweating, tremor, chills, nausea, interrupted sleep Objective: 06/28/19 12:15 Last Vital Signs Temp Pulse Resp BP Pulse Ox 96.8 F L 94 H 18 143/90 06/28/19 09:51 06/28/19 09:51 06/28/19 09:51 06/28/19 09:51 Elevated b/p noted, has htn, on medication Laboratory Tests 06/26/19 06/26/19 06/26/19 05:12 16:20 22:31 WBC RBC Hgb Hct MCV MCH MCHC RDW Plt Count MPV Sodium Potassium Chloride Carbon Dioxide Anion Gap BUN Creatinine Est GFR (CKD-EPI)AfAm Est GFR (CKD-EPI)NonAf POC Glucometer 107 165 282 Random Glucose Calcium Total Bilirubin AST ALT Alkaline Phosphatase Total Protein Albumin 06/27/19 06/27/19 06/27/19 07:14 08:00 08:00 WBC 3.8 L RBC 5.01 Hgb 14.0 Hct 42.0 MCV 83.8 MCH 27.9 MCHC 33.3 RDW 13.4 Plt Count 181 MPV 8.7 Sodium 136 Potassium 4.2 Chloride 102 Carbon Dioxide 29 Anion Gap 5 L BUN 14.8 Creatinine 0.8 Est GFR (CKD-EPI)AfAm 120.72 Est GFR (CKD-EPI)NonAf 104.16 POC Glucometer 199 Random Glucose 192 H Calcium 8.7 Total Bilirubin 0.6 AST 18 ALT 50 Alkaline Phosphatase 231 H Total Protein 7.1 Albumin 3.8 06/27/19 06/27/19 06/28/19 16:20 21:46 06:10 WBC RBC Hgb Hct MCV MCH MCHC RDW Plt Count MPV Sodium Potassium Chloride Carbon Dioxide Anion Gap BUN Creatinine Est GFR (CKD-EPI)AfAm Est GFR (CKD-EPI)NonAf POC Glucometer 210 291 121 Random Glucose Calcium Total Bilirubin AST ALT Alkaline Phosphatase Total Protein Albumin Labs reviewed: hyperglycemia due to DM, alk phos 231 (high) Assessment: 06/28/19 12:17 Withdrawal sxs Noted with HTN, DMT2 with hyperglycemia and elevated LFT Plan: Continue detox Encouraged PO water intake HTN: continue regimen, encourage low sodium diet and adherence to medication DMT2 with hyperglycemia: continue diabetic regimen, encourage adherence to medication and follow up visits Elevated LFT: repeat Alk phos (already ordered for repeat on 06/29), follow up on repeated result
[2019-06-28 14:47] LABS: RPR REACTIVE 1:1 (NONREACTIVE)
[2019-06-28] MEDS: THIAMINE HCL 100 MG TABLET (FP) PO SCH (22:21)
[2019-06-28] MEDS: QUEtiapine FUMARATE 50 MG TABLET PO SCH (22:21)
[2019-06-28] MEDS: INSULIN (LEVEMIR) 100 UNITS/ML UNITS SQ SCH (22:22)
[2019-06-29] MEDS ORDERED: chlordiazePOXIDE HCL 10 MG CAPSULE PO SCH (05:00)
[2019-06-29] MEDS: metFORMIN HCL 500 MG TABLET (FP) PO SCH (06:33)
[2019-06-29 09:20] VITALS: BP 158/97; PULSE 97; TEMP 98.9
--- NOTE | 2019-06-29 09:35 | DS ---
[facility] Detox Discharge Summary Admission Date: 06/26/19 Discharge Date: 06/29/19 - History Present History: Alcohol Dependence - Physical Exam Results Vital Signs: Vital Signs Temperature 98.9 F 06/29/19 09:19 Pulse Rate 97 H 06/29/19 09:19 Respiratory Rate 18 06/29/19 09:19 Blood Pressure 158/97 06/29/19 09:19 O2 Sat by Pulse Oximetry (%) Pertinent Admission Physical Exam Findings: Vital Signs Temperature 98.9 F 06/29/19 09:19 Pulse Rate 97 H 06/29/19 09:19 Respiratory Rate 18 06/29/19 09:19 Blood Pressure 158/97 06/29/19 09:19 O2 Sat by Pulse Oximetry (%) Laboratory Tests 06/26/19 06/26/19 06/26/19 05:12 16:20 22:31 WBC RBC Hgb Hct MCV MCH MCHC RDW Plt Count MPV Sodium Potassium Chloride Carbon Dioxide Anion Gap BUN Creatinine Est GFR (CKD-EPI)AfAm Est GFR (CKD-EPI)NonAf POC Glucometer 107 165 282 Random Glucose Calcium Total Bilirubin AST ALT Alkaline Phosphatase Total Protein Albumin RPR Titer 06/27/19 06/27/19 06/27/19 07:14 08:00 08:00 WBC 3.8 L RBC 5.01 Hgb 14.0 Hct 42.0 MCV 83.8 MCH 27.9 MCHC 33.3 RDW 13.4 Plt Count 181 MPV 8.7 Sodium 136 Potassium 4.2 Chloride 102 Carbon Dioxide 29 Anion Gap 5 L BUN 14.8 Creatinine 0.8 Est GFR (CKD-EPI)AfAm 120.72 Est GFR (CKD-EPI)NonAf 104.16 POC Glucometer 199 Random Glucose 192 H Calcium 8.7 Total Bilirubin 0.6 AST 18 ALT 50 Alkaline Phosphatase 231 H Total Protein 7.1 Albumin 3.8 RPR Titer 06/27/19 06/27/19 06/27/19 08:00 16:20 21:46 WBC RBC Hgb Hct MCV MCH MCHC RDW Plt Count MPV Sodium Potassium Chloride Carbon Dioxide Anion Gap BUN Creatinine Est GFR (CKD-EPI)AfAm Est GFR (CKD-EPI)NonAf POC Glucometer 210 291 Random Glucose Calcium Total Bilirubin AST ALT Alkaline Phosphatase Total Protein Albumin RPR Titer Reactive 1:1 H D 06/28/19 06/28/19 06/28/19 06:10 16:26 21:28 WBC RBC Hgb Hct MCV MCH MCHC RDW Plt Count MPV Sodium Potassium Chloride Carbon Dioxide Anion Gap BUN Creatinine Est GFR (CKD-EPI)AfAm Est GFR (CKD-EPI)NonAf POC Glucometer 121 352 352 Random Glucose Calcium Total Bilirubin AST ALT Alkaline Phosphatase Total Protein Albumin RPR Titer 06/29/19 06:29 WBC RBC Hgb Hct MCV MCH MCHC RDW Plt Count MPV Sodium Potassium Chloride Carbon Dioxide Anion Gap BUN Creatinine Est GFR (CKD-EPI)AfAm Est GFR (CKD-EPI)NonAf POC Glucometer 305 Random Glucose Calcium Total Bilirubin AST ALT Alkaline Phosphatase Total Protein Albumin RPR Titer aaox3 ambulating no acute distress - Treatment Hospital Course: Detox Protocol Followed, Detoxed Safely, Responded well, Discharged Condition Good, Rehab Referral Accepted - Medication Discharge Medications: Ambulatory Orders Hydrochlorothiazide [Hctz -] 12.5 mg PO DAILY 07/04/17 metFORMIN HCL [Glucophage -] 500 mg PO BID 07/04/17 Insulin Detemir [Levemir Flextouch] 40 unit SQ HS 10/03/17 Aspirin [ASA -] 81 mg PO DAILY 06/25/19 Quetiapine Fumarate [Seroquel -] 50 mg PO HS 06/25/19 - Diagnosis (1) Alcohol dependence with uncomplicated withdrawal Current Visit: Yes Status: Acute (2) Elevated alkaline phosphatase level Current Visit: Yes Status: Acute (3) Substance-induced sleep disorder Current Visit: Yes Status: Acute (4) Hypertension Current Visit: Yes Status: Chronic Qualifiers: Hypertension type: essential hypertension Qualified Code(s): I10 - Essential (primary) hypertension (5) Nicotine dependence Current Visit: Yes Status: Chronic Qualifiers: Nicotine product type: cigarettes Substance use status: in withdrawal Qualified Code(s): F17.213 - Nicotine dependence, cigarettes, with withdrawal (6) Type II diabetes mellitus Current Visit: Yes Status: Chronic Qualifiers: Diabetes mellitus half-way insulin use: unspecified half-way insulin use status Diabetes mellitus complication status: with hyperglycemia Qualified Code(s): E11.65 - Type 2 diabetes mellitus with hyperglycemia (7) Cocaine dependence, uncomplicated Current Visit: No Status: Acute (8) Anxiety with depression Current Visit: No Status: Suspected - AMA Did Patient Leave Against Medical Advice: No
[2019-06-29 11:34] LABS: TREPONEMA ANTIBODY REACTIVE (NONREACTIVE)
[2019-06-30] MEDS ORDERED: chlordiazePOXIDE HCL 10 MG CAPSULE PO ONE (05:00)
== END 2019-06-29 09:40 | disposition home or self-care (01) | DRG 774 ==
LOC: YASAS 18:04 → Y6N 06-26 04:24
PROVIDERS: ADMIT Allergy & Immunology; ATTEND Allergy & Immunology
PROC: HZ2ZZZZ Detoxification Services for Substance Abuse Treatment (ICD-10-PCS; principal; 2019-06-26)
DX: F10.230 Alcohol dependence with withdrawal, uncomplicated (principal); F14.20 Cocaine dependence, uncomplicated; F17.213 Nicotine dependence, cigarettes, with withdrawal; F19.282 Other psychoactive substance dependence with psychoactive substance-induced sleep disorder; F41.9 Anxiety disorder, unspecified; F32.9 Major depressive disorder, single episode, unspecified; E11.65 Type 2 diabetes mellitus with hyperglycemia; R74.0 Nonspecific elevation of levels of transaminase and lactic acid dehydrogenase [LDH]; R00.0 Tachycardia, unspecified; Z88.0 Allergy status to penicillin; Z91.010 Allergy to peanuts; Z79.4 Long term (current) use of insulin; Z79.84 Long term (current) use of oral hypoglycemic drugs
CPT/HCPCS: 36415; 80053; 82962; 85027; 86593; 86780; 93005; 93010

== ENCOUNTER 2019-12-02 14:18 | Inpatient (IN) | payer OTHER ==
--- NOTE | 2019-12-02 15:45 | BHS.RME ---
Substance Use & Tx History - Substance Use History Alcohol Substance amount: 3 pints Vodka, 6 pack of 16 ounce beer Frequency of use: Daily Substance route: Oral Date of Last Use: 12/02/19 - Last Treatment Date of last treatment: 10/17 not admitted, low CIWA Physical/Psych/Mental Status - Behavior General Behavior: Increased activity (restlessness, agitation) Eye Contact: Normal - Cooperativeness Cooperativeness: Cooperative - Thinking Thought Processes: Tight Thought content: Future oriented - Physical Health Problems Is patient presently having any pain?: No Does patient presently have any injuries (include location): No Does patient currently have a fever: No CIWA Nausea/Vomitin Muscle Tremors: 2 Anxiety: 3 Agitation: 1-Slight > Activity Paroxysmal Sweats: 3 Orientation: 2-Disoriented Date<2 days Tacttile Disturbances: 0-None Auditory Disturbances: 1-Very Mild Visual Disturbances: 1-Very Mild Sensitivity Headache: 3-Moderate CIWA-Ar Total Score: 18
--- NOTE | 2019-12-02 16:17 | HP ---
CIWA Score Nausea/Vomitin Muscle Tremors: 2 Anxiety: 3 Agitation: 0-Normal Activity Paroxysmal Sweats: 3 Orientation: 2-Disoriented Date<2 days Tacttile Disturbances: 0-None Auditory Disturbances: 0-None Visual Disturbances: 2-Mild Sensitivity Headache: 3-Moderate CIWA-Ar Total Score: 17 - Admission Criteria OASAS Guidelines: Admission for Medically Managed Detox: Requires at least one of the followin. CIWA greater than 12 2. Seizures within the past 24 hours 3. Delirium tremens within the past 24 hours 4. Hallucinations within the past 24 hours 5. Acute intervention needed for co occurring medical disorder 6. Acute intervention needed for co occurring psychiatric disorder 7. Severe withdrawal that cannot be handled at a lower level of care (continued vomiting, continued diarrhea, abnormal vital signs) requiring intravenous medication and/or fluids 8. Admitting History and Physical - Smoking History Smoking history: Former smoker Have you smoked in the past 12 months: No Aproximately how many cigarettes per day: 0 - Alcohol/Substance Use Hx Alcohol Use: Yes Admission [facility] Allergies/Adverse Reactions: Allergies Allergy/AdvReac Type Severity Reaction Status Date / Time Fish Containing Products Allergy Severe Difficulty Verified 12/02/19 16:35 Breathing peanut Allergy Severe Difficulty Verified 12/02/19 16:35 Breathing Penicillins Allergy Intermediate Hives Verified 12/02/19 16:35 History of Present Illness: Others' Prescriptions Patient Name: Kassandra Vieyra Date: 1970 Address: [place] [id number] Sex: Male Rx Written Rx Dispensed Drug Quantity Days Supply Prescriber Name Payment Method Dispenser 11/18/2019 11/19/2019 chlordiazepoxide 25 mg capsule 11 2 Dario Tran Medicaid [facility] Patient Name: Eileen Vieyra Date: 1970 Address: [address] [place] [id number] Sex: Female Rx Written Rx Dispensed Drug Quantity Days Supply Prescriber Name Payment Method Dispenser 09/28/2019 10/02/2019 chlordiazepoxide 25 mg capsule 24 8 Lars Hanna [facility] Patient Name: Eileen Vieyra Date: 1970 Address: [address] [place] [id number] Sex: Male Rx Written Rx Dispensed Drug Quantity Days Supply Prescriber Name Payment Method Dispenser 07/30/2019 07/30/2019 chlordiazepoxide 10 mg capsule 27 3 Halima Nicole [employer] Insurance [facility] 49 y.o. male requesting detox from alcohol use , reports relapsed after completing detox November 2019 @ [facility] , 1 pint /day and 6-pk beer/day , + blackouts , denies seizures , reports tremors if not drinking . cocaine : 300 $ /day denies IV use tobacco : 2 cigs/ day PMHX : DM II , HTN , meds asa 81 , mvi , lexapro 20 mg qd , lisinopril 10 mg qd , trazodone 50 , basaglar 35 u qhs , amlodipine 5 mg qd Exam Limitations: Clinical Condition - Review of Systems Constitutional: Loss of Appetite EENT: reports: Other (dentures upper and lower) Respiratory: reports: No Symptoms reported Cardiac: reports: No Symptoms Reported GI: reports: Constipated, Diarrhea, Poor Appetite : reports: No Symptoms Reported Musculoskeletal: reports: No Symptoms Reported Integumentary: reports: No Symptoms Reported Neuro: reports: Headache, Tremors Endocrine: reports: See HPI Hematology: reports: No Symptoms Reported Psychiatric: reports: Agitated, Anxious, Disorientated Patient History - Patient Medical History Hx Anemia: No Hx Asthma: No Hx Chronic Obstructive Pulmonary Disease (COPD): No Hx Cancer: No Hx Cardiac Disorders: No Hx Congestive Heart Failure: No Hx Hypertension: Yes Hx Hypercholesterolemia: No Hx Pacemaker: No HX Cerebrovascular Accident: No Hx Seizures: No Hx Dementia: No Hx Diabetes: Yes (DM TYPE 2) Hx Gastrointestinal Disorders: No Hx Liver Disease: No Hx Genitourinary Disorders: No Hx Sexually Transmitted Disorders: No Hx Renal Disease (ESRD): No Hx Thyroid Disease: No Hx Human Immunodeficiency Virus (HIV): No (NEGATIVE 2018) Hx Hepatitis C: No (Uncertain if ever tested.) Hx Depression: No Hx Suicide Attempt: No (Denies suicidal ideation at thisv time) Hx Bipolar Disorder: No Hx Schizophrenia: No - Patient Surgical History Past Surgical History: No Hx Neurologic Surgery: No Hx Cataract Extraction: No Hx Cardiac Surgery: No Hx Lung Surgery: No Hx Breast Surgery: No Hx Breast Biopsy: No Hx Abdominal Surgery: No Hx Appendectomy: No Hx Cholecystectomy: No Hx Genitourinary Surgery: No Hx Section: No Hx Orthopedic Surgery: No Other Surgical History: DENIES. Anesthesia Reaction: No - PPD History Date: 07/06/17 - Smoking Cessation Smoking history: Former smoker Have you smoked in the past 12 months: No Aproximately how many cigarettes per day: 0 Cigars Per Day: 0 Hx Chewing Tobacco Use: No Initiated information on smoking cessation: Yes 'Breaking Loose' booklet given: 12/02/19 - Substances abused Alcohol Substance route: Oral Frequency: Daily Amount used: LIQUOR- 2 PPTS, BEER- 1 SIX PK Age of first use: 14 Date of last use: 12/02/19 Admission Physical Exam BHS - Physical General Appearance: Yes: Mild Distress, Tremorous, Anxious HEENTM: Yes: EOMI, Hearing grossly Normal, Normocephalic, Other Respiratory: Yes: Chest Non-Tender, Lungs Clear, No Respiratory Distress, No Acc essory Muscle Use Neck: Yes: No masses,lesions,Nodules, Trachea in good position Cardiology: Yes: Regular Rhythm, Regular Rate, S1, S2, Tachycardia Abdominal: Yes: Non Tender, Soft Musculoskeletal: Yes: Gait Steady Extremities: Yes: Normal Range of Motion, Non-Tender, Tremors Neurological: Yes: Alert Integumentary: Yes: Warm - Diagnostic (1) Alcohol dependence with uncomplicated withdrawal Current Visit: Yes Status: Chronic (2) Cocaine dependence, uncomplicated Current Visit: Yes Status: Chronic Breathalyzer - Breathalyzer Breathalyzer: 0.094 Urine Drug Screen - Test Device Lot number: [id number] Expiration date: 01/31/21 - Control Is test valid?: Yes - Results Drug screen NEGATIVE: No Urine drug screen results: ANKUR-Cocaine Inpatient Rehab Admission - Rehab Decision to Admit Inpatient rehab admission?: No
[2019-12-02] MEDS ORDERED: IBUPROFEN 400 MG TABLET (FP) PO PRN (16:33)
[2019-12-02] MEDS ORDERED: MAG HYDROX/AL HYDROX/SIMETH 30 ML UNIT-DOSE CUP PO PRN (16:33)
[2019-12-02] MEDS ORDERED: MENTHOL/PHENOL 1 EACH UD MM PRN (16:33)
[2019-12-02] MEDS ORDERED: MAGNESIUM CITRATE 300 ML BOTTLE PO PRN (16:33)
[2019-12-02] MEDS ORDERED: diazePAM 5 MG TABLET PO PRN (16:33)
[2019-12-02] MEDS ORDERED: MAGNESIUM HYDROX 2400MG/30ML ORAL SUSPENSION 30 ML CUP PO PRN (16:33)
[2019-12-02] MEDS ORDERED: METHOCARBAMOL 500 MG TABLET PO PRN (16:33)
[2019-12-02] MEDS ORDERED: diazePAM 5 MG TABLET PO ONE (16:33)
[2019-12-02] MEDS ORDERED: BISMUTH SUBSALICYLATE 524 MG/30 ML UD PO PRN (16:33)
[2019-12-02] MEDS ORDERED: ACETAMINOPHEN 325 MG TABLET (FP) PO PRN ×2 (16:33)
[2019-12-02 16:44] VITALS: BMI 37.3
[2019-12-02] MEDS: LISINOPRIL 10 MG TABLET (FP) PO SCH (17:52)
[2019-12-02] MEDS: amLODIPine BESYLATE 5 MG TABLET (FP) PO SCH (17:52)
[2019-12-02] MEDS: INSULIN SLIDING SCALE (NOVOLOG) 1 VIAL SQ SCH ×2 (17:52→20:59)
[2019-12-02] MEDS: INSULIN (LEVEMIR) 100 UNITS/ML UNITS SQ SCH (20:59)
[2019-12-02] MEDS: traZODone HCL 50 MG TABLET (FP) PO SCH (20:59)
[2019-12-02] MEDS: diazePAM 5 MG TABLET PO SCH (20:59)
[2019-12-02] MEDS: THIAMINE HCL 100 MG TABLET (FP) PO SCH (21:00)
[2019-12-02] MEDS ORDERED: PATIENT'S OWN MEDICATION (NON-FORMULARY) (Insulin Glargine,Hum.Rec.Anlog [Basaglar Kwikpen SQ SCH (22:00)
[2019-12-02] MEDS: MELATONIN 5 MG TABLETS PO SCH (23:00)
[2019-12-03] MEDS: diazePAM 5 MG TABLET PO SCH (05:36)
[2019-12-03] MEDS: metFORMIN HCL 500 MG TABLET (FP) PO SCH ×2 (06:14→17:33)
[2019-12-03] MEDS: INSULIN SLIDING SCALE (NOVOLOG) 1 VIAL SQ SCH ×4 (06:14→21:50)
--- NOTE | 2019-12-03 08:57 | CONSULT ---
[facility] Psychiatric Consult - Data Date of interview: 12/03/19 Admission source: Self-referred Identifying data: Mr Vieyra is a 49 years old single Black male, unemployed receiving unemployment, homeless seeking detox treatment for alcohol and cocaine Substance Abuse History: Reports history of alcohol and cocaine use. Refer to addiction counselor's summary for further information Medical History: Significant for hypertension and type 2 diabetes mellitus Psychiatric History: Patient is known for previous admission to this facility. He denies previous psychiatric hospitalization or suicidal attempt. However, reports multiple previous [facility] visits to [facility] for depression in the conrtext of alcohol intoxication. At present,denies depressive symptoms, S/H ideations Physical/Sexual Abuse/Trauma History: Denies history of abuse as a child or DV relationship as an adult Mental Status Exam - Mental Status Exam Alert and Oriented to: Place, Person Cognitive Function: Fair Patient Appearance: Well Groomed, Disheveled Mood: Hopeful, Euthymic Patient Behavior: Cooperative Speech Pattern: Clear Voice Loudness: Normal Thought Process: Intact, Goal Oriented Thought Disorder: Not Present Hallucinations: Denies Suicidal Ideation: Denies Homicidal Ideation: Denies Insight/Judgement: Poor Sleep: Poorly Appetite: Good Muscle strength/Tone: Normal Gait/Station: Normal Psychiatric Findings - Problem List ([place] 1, 2,3) (1) Substance-induced sleep disorder Current Visit: No Status: Acute (2) Alcohol dependence with uncomplicated withdrawal Current Visit: Yes Status: Acute (3) Cocaine dependence, uncomplicated Current Visit: Yes Status: Acute (4) Nicotine dependence Current Visit: No Status: Chronic Qualifiers: Nicotine product type: cigarettes Substance use status: in withdrawal Qualified Code(s): F17.213 - Nicotine dependence, cigarettes, with withdrawal (5) Hypertension Current Visit: No Status: Chronic Qualifiers: Hypertension type: essential hypertension Qualified Code(s): I10 - Essential (primary) hypertension (6) Type II diabetes mellitus Current Visit: No Status: Chronic Qualifiers: Diabetes mellitus terminal carman insulin use: unspecified alf insulin use status Diabetes mellitus complication status: with hyperglycemia Qualified Code(s): E11.65 - Type 2 diabetes mellitus with hyperglycemia - Initial Treatment Plan Initial Treatment Plan: 1) Start Belsomra 10 mg po HS prn for insomnia. 2) Continue inpatient detoxification
[2019-12-03 10:40] LABS: HEMATOCRIT 46.2 % (35.4-49); MCH 27.3 pg (25.7-33.7); MCHC 32.4 g/dl (32.0-35.9); MEAN CELL VOLUME 84.3 fl (80-96); MEAN PLT VOLUME 9.1 fl (7.5-11.1); PLATELET COUNT 214 K/MM3 (134-434); RBC 5.49 M/mm3 (4.00-5.60); WHITE BLOOD COUNT 4.9 K/mm3 (4.0-10.0)
[2019-12-03 10:51] LABS: ALBUMIN 4.1 g/dl (3.4-5.0); BILIRUBIN,TOTAL 1.2 mg/dL (0.2-1); BLOOD UREA NITROGEN 15.9 mg/dL (7-18); CALCIUM 9.2 mg/dL (8.5-10.1); CREATININE 1.2 mg/dL (0.55-1.3); POTASSIUM 4.8 mmol/L (3.5-5.1); TOT PROT 7.7 g/dl (6.4-8.2)
[2019-12-03] MEDS: ASPIRIN 81 MG CHEWABLE TABLETS PO SCH (10:52)
[2019-12-03] MEDS: LISINOPRIL 10 MG TABLET (FP) PO SCH (10:52)
[2019-12-03] MEDS: PRENATAL VITAMINS W/ FOLIC ACID TABLET (FP) PO SCH (10:52)
[2019-12-03] MEDS: amLODIPine BESYLATE 5 MG TABLET (FP) PO SCH (10:52)
--- NOTE | 2019-12-03 11:03 | PN ---
[facility] CIWA - CIWA Score Nausea/Vomitin-Mild Nausea/No Vomiting Muscle Tremors: 4-Moderate,w/Arms Extend Anxiety: 4-Mod. Anxious/Guarded Agitation: 4-Moderately Restless Paroxysmal Sweats: 3 Orientation: 0-Oriented Tacttile Disturbances: 0-None Auditory Disturbances: 0-None Visual Disturbances: 0-None Headache: 0-None Present CIWA-Ar Total Score: 16 BHS Progress Note (SOAP) Subjective: sweats shakes restless body aches interrupted sleep agitation irritable I need to be on librium not valium. I feel better with a librium detox. why am I on a low sodium diet. I am a grown man and I control my salt intake. I am also on high blood pressure medication as well. Objective: 12/03/19 10:59 Vital Signs Temperature 97.3 F L 12/03/19 08:38 Pulse Rate 96 H 12/03/19 08:38 Respiratory Rate 18 12/03/19 08:38 Blood Pressure 151/80 12/03/19 08:38 O2 Sat by Pulse Oximetry (%) 96 12/03/19 05:56 Laboratory Tests 12/02/19 12/02/19 12/03/19 17:47 20:46 05:34 WBC RBC Hgb Hct MCV MCH MCHC RDW Plt Count MPV Sodium Potassium Chloride Carbon Dioxide Anion Gap BUN Creatinine Est GFR (CKD-EPI)AfAm Est GFR (CKD-EPI)NonAf POC Glucometer 268 349 186 Random Glucose Calcium Total Bilirubin AST ALT Alkaline Phosphatase Total Protein Albumin 12/03/19 12/03/19 08:30 08:30 WBC 4.9 RBC 5.49 Hgb 15.0 Hct 46.2 MCV 84.3 MCH 27.3 MCHC 32.4 RDW 15.0 D Plt Count 214 MPV 9.1 Sodium 134 L Potassium 4.8 Chloride 98 Carbon Dioxide 33 H Anion Gap 4 L BUN 15.9 Creatinine 1.2 Est GFR (CKD-EPI)AfAm 81.23 Est GFR (CKD-EPI)NonAf 70.09 POC Glucometer Random Glucose 259 H Calcium 9.2 Total Bilirubin 1.2 H AST 14 L ALT 27 Alkaline Phosphatase 108 Total Protein 7.7 Albumin 4.1 labs noted aaox3 ambulating no acute distress Assessment: 12/03/19 11:00 withdrawals pt teaching on diet and exercise. importance of maintaining healthy eating. pt in agreement. pt will be placed on regular diet and concentrated sweets. pt in agreement. Plan: continue detox with librium taper. valium d/c as per pt request increase fluids encourage low sugar intake.
[2019-12-03] MEDS: chlordiazePOXIDE HCL 25 MG CAPSULE PO SCH ×3 (12:19→22:15)
[2019-12-03] MEDS: HYDROCHLOROTHIAZIDE 12.5 MG CAPSULE (FP) PO SCH (12:19)
[2019-12-03] MEDS: INSULIN (LEVEMIR) 100 UNITS/ML UNITS SQ SCH (21:50)
[2019-12-03] MEDS: THIAMINE HCL 100 MG TABLET (FP) PO SCH (22:15)
[2019-12-03] MEDS: traZODone HCL 50 MG TABLET (FP) PO SCH (22:15)
[2019-12-03] MEDS: SUVOREXANT 10 MG TABLET PO PRN (22:18)
[2019-12-03] MEDS: MELATONIN 5 MG TABLETS PO SCH (22:22)
[2019-12-04] MEDS ORDERED: diazePAM 5 MG TABLET PO SCH (06:00)
[2019-12-04] MEDS: metFORMIN HCL 500 MG TABLET (FP) PO SCH ×2 (06:19→16:39)
[2019-12-04] MEDS: chlordiazePOXIDE HCL 25 MG CAPSULE PO SCH ×3 (06:19→17:19)
[2019-12-04] MEDS: INSULIN SLIDING SCALE (NOVOLOG) 1 VIAL SQ SCH ×4 (07:59→21:30)
[2019-12-04] MEDS: LISINOPRIL 10 MG TABLET (FP) PO SCH (10:25)
[2019-12-04] MEDS: amLODIPine BESYLATE 5 MG TABLET (FP) PO SCH (10:26)
[2019-12-04] MEDS: PRENATAL VITAMINS W/ FOLIC ACID TABLET (FP) PO SCH (10:26)
[2019-12-04] MEDS: ASPIRIN 81 MG CHEWABLE TABLETS PO SCH (10:26)
[2019-12-04] MEDS: HYDROCHLOROTHIAZIDE 12.5 MG CAPSULE (FP) PO SCH (10:26)
--- NOTE | 2019-12-04 12:29 | PN ---
S CIWA - CIWA Score Nausea/Vomitin Muscle Tremors: 2 Anxiety: 2 Agitation: 2 Paroxysmal Sweats: No Perspiration Orientation: 0-Oriented Tacttile Disturbances: 1-Very Mild Itch/Numbness Auditory Disturbances: 0-None Visual Disturbances: 0-None Headache: 2-Mild CIWA-Ar Total Score: 11 S Progress Note (SOAP) Subjective: alert,irrtiable,anxious,interrupted sleep,tremor,pain in the body and back Objective: 12/04/19 12:30 Vital Signs Temperature 97.3 F L 12/04/19 08:35 Pulse Rate 88 12/04/19 08:35 Respiratory Rate 16 12/04/19 08:35 Blood Pressure 145/83 12/04/19 08:35 O2 Sat by Pulse Oximetry (%) 97 12/04/19 06:20 Laboratory Last Values WBC 4.9 K/mm3 (4.0-10.0) 12/03/19 08:30 RBC 5.49 M/mm3 (4.00-5.60) 12/03/19 08:30 Hgb 15.0 GM/dL (11.7-16.9) 12/03/19 08:30 Hct 46.2 % (35.4-49) 12/03/19 08:30 MCV 84.3 fl (80-96) 12/03/19 08:30 MCH 27.3 pg (25.7-33.7) 12/03/19 08:30 MCHC 32.4 g/dl (32.0-35.9) 12/03/19 08:30 RDW 15.0 % (11.9-15.9) D 12/03/19 08:30 Plt Count 214 K/MM3 (134-434) 12/03/19 08:30 MPV 9.1 fl (7.5-11.1) 12/03/19 08:30 Sodium 134 mmol/L (136-145) L 12/03/19 08:30 Potassium 4.8 mmol/L (3.5-5.1) 12/03/19 08:30 Chloride 98 mmol/L (98-107) 12/03/19 08:30 Carbon Dioxide 33 mmol/L (21-32) H 12/03/19 08:30 Anion Gap 4 MMOL/L (8-16) L 12/03/19 08:30 BUN 15.9 mg/dL (7-18) 12/03/19 08:30 Creatinine 1.2 mg/dL (0.55-1.3) 12/03/19 08:30 Est GFR (CKD-EPI)AfAm 81.23 12/03/19 08:30 Est GFR (CKD-EPI)NonAf 70.09 12/03/19 08:30 POC Glucometer 259 UNITS (80-120) 12/04/19 06:18 Random Glucose 259 mg/dL (74-106) H 12/03/19 08:30 Calcium 9.2 mg/dL (8.5-10.1) 12/03/19 08:30 Total Bilirubin 1.2 mg/dL (0.2-1) H 12/03/19 08:30 AST 14 U/L (15-37) L 12/03/19 08:30 ALT 27 U/L (13-61) 12/03/19 08:30 Alkaline Phosphatase 108 U/L (45-117) 12/03/19 08:30 Total Protein 7.7 g/dl (6.4-8.2) 12/03/19 08:30 Albumin 4.1 g/dl (3.4-5.0) 12/03/19 08:30 Syphilis Serology Reactive (NONREACTIVE) A* 12/03/19 08:30 RPR Titer Reactive 1:1 (NONREACTIVE) H 12/03/19 08:30 patient had history of syphilis adequately treated with 3 injection in the past Assessment: 12/04/19 12:31 withdrawal symptom Plan: continue detox librium regimen,bgm monitoring with insukin coverage
[2019-12-04] MEDS: SUVOREXANT 10 MG TABLET PO PRN (21:28)
[2019-12-04] MEDS: traZODone HCL 50 MG TABLET (FP) PO SCH (21:29)
[2019-12-04] MEDS: MELATONIN 5 MG TABLETS PO SCH (21:30)
[2019-12-04] MEDS: INSULIN (LEVEMIR) 100 UNITS/ML UNITS SQ SCH (21:30)
[2019-12-04] MEDS: THIAMINE HCL 100 MG TABLET (FP) PO SCH (21:34)
[2019-12-05] MEDS ORDERED: diazePAM 5 MG TABLET PO ONE (06:00)
[2019-12-05] MEDS: metFORMIN HCL 500 MG TABLET (FP) PO SCH ×2 (06:29→17:01)
[2019-12-05] MEDS: chlordiazePOXIDE HCL 25 MG CAPSULE PO SCH ×4 (06:29→22:45)
[2019-12-05] MEDS: INSULIN SLIDING SCALE (NOVOLOG) 1 VIAL SQ SCH ×4 (07:12→22:36)
[2019-12-05] MEDS: HYDROCHLOROTHIAZIDE 12.5 MG CAPSULE (FP) PO SCH (10:44)
[2019-12-05] MEDS: LISINOPRIL 10 MG TABLET (FP) PO SCH (10:44)
[2019-12-05] MEDS: amLODIPine BESYLATE 5 MG TABLET (FP) PO SCH (10:44)
[2019-12-05] MEDS: ASPIRIN 81 MG CHEWABLE TABLETS PO SCH (10:44)
[2019-12-05] MEDS: PRENATAL VITAMINS W/ FOLIC ACID TABLET (FP) PO SCH (10:44)
--- NOTE | 2019-12-05 15:37 | PN ---
S CIWA - CIWA Score Nausea/Vomitin-No Nausea/No Vomiting Muscle Tremors: None Anxiety: 5 Agitation: 0-Normal Activity Paroxysmal Sweats: No Perspiration Orientation: 2-Disoriented Date<2 days Tacttile Disturbances: 0-None Auditory Disturbances: 0-None Visual Disturbances: 2-Mild Sensitivity Headache: 0-None Present CIWA-Ar Total Score: 9 BHS Progress Note (SOAP) Subjective: Anxious, Fatigue, Interrupted Sleep. Objective: Patient A & O X 2 (Uncertain About Current Day/Date). 12/05/19 15:37 Vital Signs Temperature 98.1 F 12/05/19 12:47 Pulse Rate 88 12/05/19 12:47 Respiratory Rate 17 12/05/19 12:47 Blood Pressure 139/85 12/05/19 12:47 O2 Sat by Pulse Oximetry (%) 98 12/05/19 12:47 Laboratory Tests 12/02/19 12/02/19 12/02/19 17:00 17:47 20:46 WBC RBC Hgb Hct MCV MCH MCHC RDW Plt Count MPV Sodium Potassium Chloride Carbon Dioxide Anion Gap BUN Creatinine Est GFR (CKD-EPI)AfAm Est GFR (CKD-EPI)NonAf POC Glucometer 268 349 Random Glucose Calcium Total Bilirubin AST ALT Alkaline Phosphatase Total Protein Albumin Syphilis Serology RPR Titer COVID-19 (DELANO) Not detected 12/03/19 12/03/19 12/03/19 05:34 08:30 08:30 WBC 4.9 RBC 5.49 Hgb 15.0 Hct 46.2 MCV 84.3 MCH 27.3 MCHC 32.4 RDW 15.0 D Plt Count 214 MPV 9.1 Sodium Potassium Chloride Carbon Dioxide Anion Gap BUN Creatinine Est GFR (CKD-EPI)AfAm Est GFR (CKD-EPI)NonAf POC Glucometer 186 Random Glucose Calcium Total Bilirubin AST ALT Alkaline Phosphatase Total Protein Albumin Syphilis Serology Reactive A* RPR Titer COVID-19 (DELANO) 12/03/19 12/03/19 12/03/19 08:30 08:30 12:10 WBC RBC Hgb Hct MCV MCH MCHC RDW Plt Count MPV Sodium 134 L Potassium 4.8 Chloride 98 Carbon Dioxide 33 H Anion Gap 4 L BUN 15.9 Creatinine 1.2 Est GFR (CKD-EPI)AfAm 81.23 Est GFR (CKD-EPI)NonAf 70.09 POC Glucometer 349 Random Glucose 259 H Calcium 9.2 Total Bilirubin 1.2 H AST 14 L ALT 27 Alkaline Phosphatase 108 Total Protein 7.7 Albumin 4.1 Syphilis Serology RPR Titer Reactive 1:1 H COVID-19 (DELANO) 12/03/19 12/03/19 12/04/19 16:27 21:25 06:18 WBC RBC Hgb Hct MCV MCH MCHC RDW Plt Count MPV Sodium Potassium Chloride Carbon Dioxide Anion Gap BUN Creatinine Est GFR (CKD-EPI)AfAm Est GFR (CKD-EPI)NonAf POC Glucometer 279 467 259 Random Glucose Calcium Total Bilirubin AST ALT Alkaline Phosphatase Total Protein Albumin Syphilis Serology RPR Titer COVID-19 (DELANO) 12/04/19 12/04/19 12/05/19 16:32 21:25 06:31 WBC RBC Hgb Hct MCV MCH MCHC RDW Plt Count MPV Sodium Potassium Chloride Carbon Dioxide Anion Gap BUN Creatinine Est GFR (CKD-EPI)AfAm Est GFR (CKD-EPI)NonAf POC Glucometer > 600 270 192 Random Glucose Calcium Total Bilirubin AST ALT Alkaline Phosphatase Total Protein Albumin Syphilis Serology RPR Titer COVID-19 (DELANO) 12/05/19 10:49 WBC RBC Hgb Hct MCV MCH MCHC RDW Plt Count MPV Sodium Potassium Chloride Carbon Dioxide Anion Gap BUN Creatinine Est GFR (CKD-EPI)AfAm Est GFR (CKD-EPI)NonAf POC Glucometer 267 Random Glucose Calcium Total Bilirubin AST ALT Alkaline Phosphatase Total Protein Albumin Syphilis Serology RPR Titer COVID-19 (DELANO) Lab Results Noted. Assessment: 12/05/19 15:42 WITHDRAWAL SYMPTOMS. Plan: Continue Detox.
[2019-12-05] MEDS: SUVOREXANT 10 MG TABLET PO PRN (22:34)
[2019-12-05] MEDS: traZODone HCL 50 MG TABLET (FP) PO SCH (22:35)
[2019-12-05] MEDS: INSULIN (LEVEMIR) 100 UNITS/ML UNITS SQ SCH (22:36)
[2019-12-05] MEDS: MELATONIN 5 MG TABLETS PO SCH (22:40)
[2019-12-05] MEDS: THIAMINE HCL 100 MG TABLET (FP) PO SCH (22:45)
[2019-12-06] MEDS ORDERED: chlordiazePOXIDE HCL 10 MG CAPSULE PO PRN
[2019-12-06] MEDS: metFORMIN HCL 500 MG TABLET (FP) PO SCH ×2 (06:17→17:00)
[2019-12-06] MEDS: chlordiazePOXIDE HCL 10 MG CAPSULE PO SCH ×4 (06:17→22:11)
[2019-12-06] MEDS ORDERED: INSULIN SLIDING SCALE (NOVOLOG) 1 VIAL SQ ONE (07:52)
[2019-12-06] MEDS: INSULIN SLIDING SCALE (NOVOLOG) 1 VIAL SQ SCH ×4 (07:55→21:28)
[2019-12-06] MEDS: PRENATAL VITAMINS W/ FOLIC ACID TABLET (FP) PO SCH (11:08)
[2019-12-06] MEDS: ASPIRIN 81 MG CHEWABLE TABLETS PO SCH (11:09)
[2019-12-06] MEDS: amLODIPine BESYLATE 5 MG TABLET (FP) PO SCH (11:09)
[2019-12-06] MEDS: HYDROCHLOROTHIAZIDE 12.5 MG CAPSULE (FP) PO SCH (11:09)
[2019-12-06] MEDS: LISINOPRIL 10 MG TABLET (FP) PO SCH (11:09)
--- NOTE | 2019-12-06 12:33 | PN ---
[facility] CIWA - CIWA Score Nausea/Vomitin-No Nausea/No Vomiting Muscle Tremors: 1-None Visible, but [place] Anxiety: 2 Agitation: 2 Paroxysmal Sweats: 2 Orientation: 0-Oriented Tacttile Disturbances: 0-None Auditory Disturbances: 0-None Visual Disturbances: 2-Mild Sensitivity Headache: 0-None Present CIWA-Ar Total Score: 9 S Progress Note (SOAP) Subjective: Complaints of anxiety, tremors and sweats. Objective: 12/06/19 12:32 Vital Signs 12/06/19 12/06/19 05:19 08:36 Temperature 97.1 F L 97.3 F L Pulse Rate 81 88 Respiratory 20 18 Rate Blood Pressure 142/79 144/90 O2 Sat by Pulse 98 Oximetry (%) Laboratory Last Values WBC 4.9 K/mm3 (4.0-10.0) 12/03/19 08:30 RBC 5.49 M/mm3 (4.00-5.60) 12/03/19 08:30 Hgb 15.0 GM/dL (11.7-16.9) 12/03/19 08:30 Hct 46.2 % (35.4-49) 12/03/19 08:30 MCV 84.3 fl (80-96) 12/03/19 08:30 MCH 27.3 pg (25.7-33.7) 12/03/19 08:30 MCHC 32.4 g/dl (32.0-35.9) 12/03/19 08:30 RDW 15.0 % (11.9-15.9) D 12/03/19 08:30 Plt Count 214 K/MM3 (134-434) 12/03/19 08:30 MPV 9.1 fl (7.5-11.1) 12/03/19 08:30 Sodium 134 mmol/L (136-145) L 12/03/19 08:30 Potassium 4.8 mmol/L (3.5-5.1) 12/03/19 08:30 Chloride 98 mmol/L (98-107) 12/03/19 08:30 Carbon Dioxide 33 mmol/L (21-32) H 12/03/19 08:30 Anion Gap 4 MMOL/L (8-16) L 12/03/19 08:30 BUN 15.9 mg/dL (7-18) 12/03/19 08:30 Creatinine 1.2 mg/dL (0.55-1.3) 12/03/19 08:30 Est GFR (CKD-EPI)AfAm 81.23 12/03/19 08:30 Est GFR (CKD-EPI)NonAf 70.09 12/03/19 08:30 POC Glucometer 255 UNITS (80-120) 12/06/19 06:16 Random Glucose 259 mg/dL (74-106) H 12/03/19 08:30 Calcium 9.2 mg/dL (8.5-10.1) 12/03/19 08:30 Total Bilirubin 1.2 mg/dL (0.2-1) H 12/03/19 08:30 AST 14 U/L (15-37) L 12/03/19 08:30 ALT 27 U/L (13-61) 12/03/19 08:30 Alkaline Phosphatase 108 U/L (45-117) 12/03/19 08:30 Total Protein 7.7 g/dl (6.4-8.2) 12/03/19 08:30 Albumin 4.1 g/dl (3.4-5.0) 12/03/19 08:30 Syphilis Serology Reactive (NONREACTIVE) A* 12/03/19 08:30 RPR Titer Reactive 1:1 (NONREACTIVE) H 12/03/19 08:30 COVID-19 (DELANO) Not detected (Not Detected) 12/02/19 17:00 Labs reviewed Assessment: 12/06/19 12:33 Alert and oriented x3, in no acute respiratory distress Full ROM, skin warm to touch, ambulatory on unit without assistance. Mild withdrawal symptoms. Plan: Continue detox protocol.
[2019-12-06] MEDS: SUVOREXANT 10 MG TABLET PO PRN (21:26)
[2019-12-06] MEDS: traZODone HCL 50 MG TABLET (FP) PO SCH (21:27)
[2019-12-06] MEDS: THIAMINE HCL 100 MG TABLET (FP) PO SCH (21:27)
[2019-12-06] MEDS: INSULIN (LEVEMIR) 100 UNITS/ML UNITS SQ SCH (21:27)
[2019-12-06] MEDS: MELATONIN 5 MG TABLETS PO SCH (21:28)
[2019-12-07] MEDS: INSULIN SLIDING SCALE (NOVOLOG) 1 VIAL SQ SCH ×4 (06:20→21:47)
[2019-12-07] MEDS: chlordiazePOXIDE HCL 10 MG CAPSULE PO SCH ×2 (06:22→17:40)
[2019-12-07] MEDS: metFORMIN HCL 500 MG TABLET (FP) PO SCH ×2 (06:22→17:40)
[2019-12-07] MEDS: PRENATAL VITAMINS W/ FOLIC ACID TABLET (FP) PO SCH (10:10)
[2019-12-07] MEDS: LISINOPRIL 10 MG TABLET (FP) PO SCH (10:10)
[2019-12-07] MEDS: amLODIPine BESYLATE 5 MG TABLET (FP) PO SCH (10:10)
[2019-12-07] MEDS: ASPIRIN 81 MG CHEWABLE TABLETS PO SCH (10:10)
[2019-12-07] MEDS: HYDROCHLOROTHIAZIDE 12.5 MG CAPSULE (FP) PO SCH (10:10)
--- NOTE | 2019-12-07 14:05 | PN ---
[facility] CIWA - CIWA Score Nausea/Vomitin-Mild Nausea/No Vomiting Muscle Tremors: 1-None Visible, but [place] Anxiety: 1-Mildly Anxious Agitation: 1-Slight > Activity Paroxysmal Sweats: No Perspiration Orientation: 0-Oriented Tacttile Disturbances: 0-None Auditory Disturbances: 0-None Visual Disturbances: 0-None Headache: 1-Very Mild CIWA-Ar Total Score: 5 S Progress Note (SOAP) Subjective: alert,irritable,anxious,interrupted sleep Objective: 12/07/19 14:03 Vital Signs Temperature 97.7 F 12/07/19 08:43 Pulse Rate 92 H 12/07/19 08:43 Respiratory Rate 18 12/07/19 08:43 Blood Pressure 153/83 12/07/19 08:43 O2 Sat by Pulse Oximetry (%) 95 12/06/19 21:28 Laboratory Last Values WBC 4.9 K/mm3 (4.0-10.0) 12/03/19 08:30 RBC 5.49 M/mm3 (4.00-5.60) 12/03/19 08:30 Hgb 15.0 GM/dL (11.7-16.9) 12/03/19 08:30 Hct 46.2 % (35.4-49) 12/03/19 08:30 MCV 84.3 fl (80-96) 12/03/19 08:30 MCH 27.3 pg (25.7-33.7) 12/03/19 08:30 MCHC 32.4 g/dl (32.0-35.9) 12/03/19 08:30 RDW 15.0 % (11.9-15.9) D 12/03/19 08:30 Plt Count 214 K/MM3 (134-434) 12/03/19 08:30 MPV 9.1 fl (7.5-11.1) 12/03/19 08:30 Sodium 134 mmol/L (136-145) L 12/03/19 08:30 Potassium 4.8 mmol/L (3.5-5.1) 12/03/19 08:30 Chloride 98 mmol/L (98-107) 12/03/19 08:30 Carbon Dioxide 33 mmol/L (21-32) H 12/03/19 08:30 Anion Gap 4 MMOL/L (8-16) L 12/03/19 08:30 BUN 15.9 mg/dL (7-18) 12/03/19 08:30 Creatinine 1.2 mg/dL (0.55-1.3) 12/03/19 08:30 Est GFR (CKD-EPI)AfAm 81.23 12/03/19 08:30 Est GFR (CKD-EPI)NonAf 70.09 12/03/19 08:30 POC Glucometer 211 UNITS (80-120) 12/07/19 06:16 Random Glucose 259 mg/dL (74-106) H 12/03/19 08:30 Calcium 9.2 mg/dL (8.5-10.1) 12/03/19 08:30 Total Bilirubin 1.2 mg/dL (0.2-1) H 12/03/19 08:30 AST 14 U/L (15-37) L 12/03/19 08:30 ALT 27 U/L (13-61) 12/03/19 08:30 Alkaline Phosphatase 108 U/L (45-117) 12/03/19 08:30 Total Protein 7.7 g/dl (6.4-8.2) 12/03/19 08:30 Albumin 4.1 g/dl (3.4-5.0) 12/03/19 08:30 Syphilis Serology Reactive (NONREACTIVE) A* 12/03/19 08:30 RPR Titer Reactive 1:1 (NONREACTIVE) H 12/03/19 08:30 COVID-19 (DELANO) Not detected (Not Detected) 12/02/19 17:00 Assessment: 12/07/19 14:04 withdrawal symptom Plan: continue detox ,bgm monitoring,discharge in am at 07.00 on 12/08/2019 ,patient need to go [place] state, nursing aware will give sign off to nursing department,patient has all medications with him
[2019-12-07] MEDS: THIAMINE HCL 100 MG TABLET (FP) PO SCH (21:41)
[2019-12-07] MEDS: traZODone HCL 50 MG TABLET (FP) PO SCH (21:41)
[2019-12-07] MEDS: MELATONIN 5 MG TABLETS PO SCH (21:41)
[2019-12-07] MEDS ORDERED: INSULIN SLIDING SCALE (NOVOLOG) 1 VIAL SQ ONE (21:45)
[2019-12-07] MEDS: INSULIN (LEVEMIR) 100 UNITS/ML UNITS SQ SCH (21:47)
[2019-12-08] MEDS ORDERED: chlordiazePOXIDE HCL 10 MG CAPSULE PO ONE (05:00)
[2019-12-08 06:33] VITALS: BP 119/65; PULSE 84; TEMP 97.1
[2019-12-08] MEDS: INSULIN SLIDING SCALE (NOVOLOG) 1 VIAL SQ SCH (06:48)
[2019-12-08] MEDS: metFORMIN HCL 500 MG TABLET (FP) PO SCH (06:48)
--- NOTE | 2019-12-08 07:02 | DS ---
[facility] Detox Discharge Summary Admission Date: 12/02/19 Discharge Date: 12/08/19 - History Present History: Alcohol Dependence, Cocaine Dependence Additional Comments: SEEN FOR SCHED DC THIS MORNING. ADMITTED ON FOR ALCOHOL DETOX. CLIENT HAS COMPLETED TXMENT. A/O X3 NAD. DENIES C/O SHAKES, SWEATS, C.P., SOB, SI/HI. VSS, AMBULATING SELF , STEADY GAIT W/O DIFFICULTY. LUNGS CTAB. Pertinent Past History: HTN NICOTINE DEPENDENCE - Physical Exam Results Vital Signs: Vital Signs Temperature 97.1 F L 12/08/19 06:32 Pulse Rate 84 12/08/19 06:32 Respiratory Rate 18 12/08/19 06:32 Blood Pressure 119/65 12/08/19 06:32 O2 Sat by Pulse Oximetry (%) 98 12/08/19 06:32 Pertinent Admission Physical Exam Findings: WITHDRAWAL SX'S Laboratory Tests 12/02/19 12/02/19 12/02/19 17:00 17:47 20:46 WBC RBC Hgb Hct MCV MCH MCHC RDW Plt Count MPV Sodium Potassium Chloride Carbon Dioxide Anion Gap BUN Creatinine Est GFR (CKD-EPI)AfAm Est GFR (CKD-EPI)NonAf POC Glucometer 268 349 Random Glucose Calcium Total Bilirubin AST ALT Alkaline Phosphatase Total Protein Albumin Syphilis Serology RPR Titer COVID-19 (DELANO) Not detected 12/03/19 12/03/19 12/03/19 05:34 08:30 08:30 WBC 4.9 RBC 5.49 Hgb 15.0 Hct 46.2 MCV 84.3 MCH 27.3 MCHC 32.4 RDW 15.0 D Plt Count 214 MPV 9.1 Sodium Potassium Chloride Carbon Dioxide Anion Gap BUN Creatinine Est GFR (CKD-EPI)AfAm Est GFR (CKD-EPI)NonAf POC Glucometer 186 Random Glucose Calcium Total Bilirubin AST ALT Alkaline Phosphatase Total Protein Albumin Syphilis Serology Reactive A* RPR Titer COVID-19 (DELANO) 12/03/19 12/03/19 12/03/19 08:30 08:30 12:10 WBC RBC Hgb Hct MCV MCH MCHC RDW Plt Count MPV Sodium 134 L Potassium 4.8 Chloride 98 Carbon Dioxide 33 H Anion Gap 4 L BUN 15.9 Creatinine 1.2 Est GFR (CKD-EPI)AfAm 81.23 Est GFR (CKD-EPI)NonAf 70.09 POC Glucometer 349 Random Glucose 259 H Calcium 9.2 Total Bilirubin 1.2 H AST 14 L ALT 27 Alkaline Phosphatase 108 Total Protein 7.7 Albumin 4.1 Syphilis Serology RPR Titer Reactive 1:1 H COVID-19 (DELANO) 12/03/19 12/03/19 12/04/19 16:27 21:25 06:18 WBC RBC Hgb Hct MCV MCH MCHC RDW Plt Count MPV Sodium Potassium Chloride Carbon Dioxide Anion Gap BUN Creatinine Est GFR (CKD-EPI)AfAm Est GFR (CKD-EPI)NonAf POC Glucometer 279 467 259 Random Glucose Calcium Total Bilirubin AST ALT Alkaline Phosphatase Total Protein Albumin Syphilis Serology RPR Titer COVID-19 (DELANO) 12/04/19 12/04/19 12/05/19 16:32 21:25 06:31 WBC RBC Hgb Hct MCV MCH MCHC RDW Plt Count MPV Sodium Potassium Chloride Carbon Dioxide Anion Gap BUN Creatinine Est GFR (CKD-EPI)AfAm Est GFR (CKD-EPI)NonAf POC Glucometer > 600 270 192 Random Glucose Calcium Total Bilirubin AST ALT Alkaline Phosphatase Total Protein Albumin Syphilis Serology RPR Titer COVID-19 (DELANO) 12/05/19 12/05/19 12/05/19 10:49 16:19 22:32 WBC RBC Hgb Hct MCV MCH MCHC RDW Plt Count MPV Sodium Potassium Chloride Carbon Dioxide Anion Gap BUN Creatinine Est GFR (CKD-EPI)AfAm Est GFR (CKD-EPI)NonAf POC Glucometer 267 330 339 Random Glucose Calcium Total Bilirubin AST ALT Alkaline Phosphatase Total Protein Albumin Syphilis Serology RPR Titer COVID-19 (DELANO) 12/06/19 12/06/19 12/06/19 06:16 16:45 21:24 WBC RBC Hgb Hct MCV MCH MCHC RDW Plt Count MPV Sodium Potassium Chloride Carbon Dioxide Anion Gap BUN Creatinine Est GFR (CKD-EPI)AfAm Est GFR (CKD-EPI)NonAf POC Glucometer 255 270 215 Random Glucose Calcium Total Bilirubin AST ALT Alkaline Phosphatase Total Protein Albumin Syphilis Serology RPR Titer COVID-19 (DELANO) 12/07/19 12/07/19 12/07/19 06:16 16:55 21:38 WBC RBC Hgb Hct MCV MCH MCHC RDW Plt Count MPV Sodium Potassium Chloride Carbon Dioxide Anion Gap BUN Creatinine Est GFR (CKD-EPI)AfAm Est GFR (CKD-EPI)NonAf POC Glucometer 211 294 306 Random Glucose Calcium Total Bilirubin AST ALT Alkaline Phosphatase Total Protein Albumin Syphilis Serology RPR Titer COVID-19 (DELANO) KNOWN HX AND TXMENT OF SYPHILIS - Treatment Hospital Course: Detox Protocol Followed, Detoxed Safely, Responded well, Discharged Condition Good Patient has Accepted a Rehab Referral to: DECLINED - Medication Discharge Medications: Ambulatory Orders Hydrochlorothiazide [Hctz -] 12.5 mg PO DAILY 07/04/17 metFORMIN HCL [Glucophage -] 500 mg PO BID 07/04/17 Insulin Detemir [Levemir Flextouch] 40 unit SQ HS 10/03/17 Aspirin [ASA -] 81 mg PO DAILY 06/25/19 Quetiapine Fumarate [Seroquel -] 50 mg PO HS 06/25/19 Insulin Glargine,Hum.rec.anlog [Basaglar Kwikpen U-100] 35 unit SQ HS 12/02/19 - Diagnosis (1) Alcohol dependence with uncomplicated withdrawal Status: Resolved (2) Cocaine dependence, uncomplicated Status: Chronic (3) Substance-induced sleep disorder Status: Chronic (4) Hypertension Status: Chronic Qualifiers: Hypertension type: essential hypertension Qualified Code(s): I10 - Essential (primary) hypertension (5) Nicotine dependence Status: Chronic Qualifiers: Nicotine product type: cigarettes Substance use status: in withdrawal Qualified Code(s): F17.213 - Nicotine dependence, cigarettes, with withdrawal (6) Type II diabetes mellitus Status: Chronic Qualifiers: Diabetes mellitus mcfp insulin use: unspecified mcfp insulin use status Diabetes mellitus complication status: with hyperglycemia Qualified Code(s): E11.65 - Type 2 diabetes mellitus with hyperglycemia - AMA Did Patient Leave Against Medical Advice: No (20 MIN DC)
== END 2019-12-08 06:30 | disposition home or self-care (01) | DRG 774 ==
LOC: YASAS 14:18 → Y6N 16:58
PROVIDERS: ADMIT Allergy & Immunology; ATTEND Allergy & Immunology
PROC: HZ2ZZZZ Detoxification Services for Substance Abuse Treatment (ICD-10-PCS; principal; 2019-12-02)
DX: F10.230 Alcohol dependence with withdrawal, uncomplicated (principal); F14.20 Cocaine dependence, uncomplicated; F17.210 Nicotine dependence, cigarettes, uncomplicated; F19.282 Other psychoactive substance dependence with psychoactive substance-induced sleep disorder; I10 Essential (primary) hypertension; E11.65 Type 2 diabetes mellitus with hyperglycemia; Z79.4 Long term (current) use of insulin; Z86.19 Personal history of other infectious and parasitic diseases; Z79.82 Long term (current) use of aspirin; Z88.0 Allergy status to penicillin; Z91.018 Allergy to other foods; Z91.010 Allergy to peanuts; Z56.0 Unemployment, unspecified; Z59.0 Homelessness
CPT/HCPCS: 36415; 80053; 82962; 85027; 86593; 86780; U0003

== ENCOUNTER 2020-01-02 09:38 | Inpatient (IN) | payer OTHER ==
--- NOTE | 2020-01-02 11:55 | BHS.RME ---
Substance Use & Tx History - Substance Use History Alcohol Substance amount: 1 pint of vodka/6 packs of 16 ozs of beer Frequency of use: Daily Substance route: Oral Date of Last Use: 01/02/20 Cocaine- Powder Substance amount: 150$ Frequency of use: Less than 3 times per week Substance route: Inhalation (ex: sniffing or snorting) Date of Last Use: 01/01/20 - Last Treatment Date of last treatment: [facility] 12/02/19 to 12/08/19 Where was last treatment: Detox Physical/Psych/Mental Status - Behavior Eye Contact: Normal - Thinking Thought Processes: Logical Thought content: Future oriented - Physical Health Problems Is patient presently having any pain?: No Does patient presently have any injuries (include location): No Does patient currently have a fever: No CIWA Nausea/Vomitin Muscle Tremors: 3 Anxiety: 2 Agitation: 2 Paroxysmal Sweats: 1-Minimal Palms Moist Orientation: 0-Oriented Tacttile Disturbances: 0-None Auditory Disturbances: 0-None Visual Disturbances: 0-None Headache: 2-Mild CIWA-Ar Total Score: 12
--- NOTE | 2020-01-02 12:05 | HP ---
CIWA Score Nausea/Vomitin Muscle Tremors: 3 Anxiety: 2 Agitation: 2 Paroxysmal Sweats: 1-Minimal Palms Moist Orientation: 0-Oriented Tacttile Disturbances: 0-None Auditory Disturbances: 0-None Visual Disturbances: 0-None Headache: 2-Mild CIWA-Ar Total Score: 12 - Admission Criteria OASAS Guidelines: Admission for Medically Managed Detox: Requires at least one of the followin. CIWA greater than 12 2. Seizures within the past 24 hours 3. Delirium tremens within the past 24 hours 4. Hallucinations within the past 24 hours 5. Acute intervention needed for co occurring medical disorder 6. Acute intervention needed for co occurring psychiatric disorder 7. Severe withdrawal that cannot be handled at a lower level of care (continued vomiting, continued diarrhea, abnormal vital signs) requiring intravenous medication and/or fluids 8. Admitting History and Physical - Admission Chief Complaint: i need help to stop drinking alcohol and cocaine abused History of Present Illness: this 49 years old male with alcohol dependence and cocaine abused,seeking detox, History Source: Patient Limitations to Obtaining History: No Limitations - Past Medical History Cardiovascular: Yes: HTN Psych: Yes: Anxiety, Depression Endocrine: Yes: Diabetes Mellitus - Past Surgical History Past Surgical History: Yes: None - Smoking History Smoking history: Former smoker Have you smoked in the past 12 months: No Aproximately how many cigarettes per day: 0 - Alcohol/Substance Use Hx Alcohol Use: Yes History of Substance Use: reports: Cocaine Date of Last Use: 01/02/20 - Social History Usual Living Arrangement: Yes: Other (live with sister) Do you think of yourself as: Straight/Heterosexual ADL: Support Services Occupation: unemployed History of Recent Travel: No Other Social History: unemployed,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 Admission [facility] Chief Complaint: i need help to stop drinking alcohol,cocaine abused Allergies/Adverse Reactions: Allergies Allergy/AdvReac Type Severity Reaction Status Date / Time Fish Containing Products Allergy Severe Difficulty Verified 01/02/20 12:44 Breathing peanut Allergy Severe Difficulty Verified 01/02/20 12:44 Breathing Penicillins Allergy Intermediate Hives Verified 01/02/20 12:44 History of Present Illness: this 49 years old male with alcohol dependence and cocaine abused seeking detox multiple admissions in detox last 12/02/19 to 12/08/19 relapsed 2 days after detox history of hypertension and type 2 dm anxiety and depression 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,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,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 plan to go to rehab after detox Exam Limitations: No Limitations - Ebola screening Have you traveled outside of the country in the last 21 days: No Have you had contact with anyone from an Ebola affected area: No Have you been sick,other than usual withdrawal symptoms: No Do you have a fever: No - Review of Systems Constitutional: Loss of Appetite, Malaise, Night Sweats, Changes in sleep, Weakness EENT: reports: Nose Congestion Respiratory: reports: No Symptoms reported Cardiac: reports: No Symptoms Reported GI: reports: Nausea, Poor Appetite, Abdominal cramping : reports: No Symptoms Reported Musculoskeletal: reports: Back Pain, Muscle Pain Integumentary: reports: Dryness Neuro: reports: Headache, Tremors Endocrine: reports: No Symptoms Reported Hematology: reports: No Symptoms Reported Psychiatric: reports: No Sypmtoms Reported, Judgement Intact, Mood/Affect A ppropiate, Orientated x3, Anxious, Depressed, other (insomnia) Patient History - Patient Medical History Hx Anemia: No Hx Asthma: No Hx Chronic Obstructive Pulmonary Disease (COPD): No Hx Cancer: No Hx Cardiac Disorders: No Hx Congestive Heart Failure: No Hx Hypertension: Yes Hx Hypercholesterolemia: No Hx Pacemaker: No HX Cerebrovascular Accident: No Hx Seizures: No Hx Dementia: No Hx Diabetes: Yes (DM TYPE 2) Hx Gastrointestinal Disorders: No Hx Liver Disease: No Hx Genitourinary Disorders: No Hx Sexually Transmitted Disorders: No Hx Renal Disease (ESRD): No Hx Thyroid Disease: No Hx Human Immunodeficiency Virus (HIV): No (12/2019 negative) Hx Hepatitis C: No (Uncertain if ever tested.) Hx Depression: Yes (Diagnosis 2017 / Denies Treatment) Hx Suicide Attempt: No (Denies suicidal ideation at thisv time) Hx Bipolar Disorder: No Hx Schizophrenia: No Other Medical History: no si=uicidal,no homicidal - Patient Surgical History Past Surgical History: No Hx Neurologic Surgery: No Hx Cataract Extraction: No Hx Cardiac Surgery: No Hx Lung Surgery: No Hx Breast Surgery: No Hx Breast Biopsy: No Hx Abdominal Surgery: No Hx Appendectomy: No Hx Cholecystectomy: No Hx Genitourinary Surgery: No Hx Section: No Hx Orthopedic Surgery: No Other Surgical History: DENIES. Anesthesia Reaction: No - PPD History Previous Implant?: Yes Documented Results: Negative w/proof Implanted On Prior [facility] Admission?: Yes Date: 12/05/19 Results: 0 mm PPD to be Administered?: No - Smoking Cessation Smoking history: Former smoker Have you smoked in the past 12 months: No Aproximately how many cigarettes per day: 0 Cigars Per Day: 0 Hx Chewing Tobacco Use: No Initiated information on smoking cessation: No - Substance & Tx. History Hx Alcohol Use: Yes Hx Substance Use: No Substance Use Type: Alcohol, Cocaine Hx Substance Use Treatment: Yes (12/02/19 to 12/08/19 [facility]) - Substances abused Alcohol Substance route: Oral Frequency: Daily Amount used: 1 pint of vodka/6 packs of 16 ozs of beer Age of first use: 18 Date of last use: 01/02/20 Cocaine Substance route: Inhalation Frequency: 1-2 times per week Amount used: 150$ Age of first use: 29 Date of last use: 01/01/20 Admission Physical Exam BHS - Vital Signs Vital Signs: t97.8,p95,bp 126/72,r 18 - Physical General Appearance: Yes: Moderate Distress, Tremorous, Irritable, Sweating, Anxious HEENTM: Yes: Normal ENT Inspection, [place], Pharynx Normal Respiratory: Yes: Lungs Clear, Normal Breath Sounds, No Respiratory Distress Neck: Yes: Within Normal Limits, Supple, Trachea in good position Breast: Yes: Within Normal Limits Cardiology: Yes: Within Normal Limits, Regular Rhythm, Regular Rate, S1, S2 Abdominal: Yes: Within Normal Limits, Normal Bowel Sounds, Non Tender, Soft Genitourinary: Yes: Within Normal Limits Back: Yes: Muscle Spasm Musculoskeletal: Yes: Back pain, Muscle Pain Extremities: Yes: Tremors 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 II-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 NML intact, Fully Oriented, Alert, Motor Strength 5/5 Integumentary: Yes: Dry Lymphatic: Yes: Within Normal Limits - Diagnostic (1) Alcohol dependence with uncomplicated withdrawal Current Visit: No Status: Resolved (2) Cocaine dependence, uncomplicated Current Visit: No Status: Chronic (3) Hypertension Current Visit: No Status: Chronic Qualifiers: Hypertension type: essential hypertension Qualified Code(s): I10 - Essential (primary) hypertension (4) Nicotine dependence Current Visit: No Status: Chronic Qualifiers: Nicotine product type: cigarettes Substance use status: in withdrawal Qualified Code(s): F17.213 - Nicotine dependence, cigarettes, with withdrawal (5) Type II diabetes mellitus Current Visit: No Status: Chronic Qualifiers: Diabetes mellitus director long term care insulin use: unspecified director long term care insulin use status Diabetes mellitus complication status: with hyperglycemia Qualified Code(s): E11.65 - Type 2 diabetes mellitus with hyperglycemia (6) Anxiety with depression Current Visit: No Status: Suspected Cleared for Admission [facility] - Detox or Rehab [facility] Level of Care: Medically Managed Detox Regimen/Protocol: Librium Breathalyzer - Breathalyzer Breathalyzer: 0.094 Urine Drug Screen - Test Device Lot number: [id number] Expiration date: 01/31/21 - Control Is test valid?: Yes - Results Drug screen NEGATIVE: No Urine drug screen results: [facility]-Cocaine Inpatient Rehab Admission - Rehab Decision to Admit Inpatient rehab admission?: No
[2020-01-02] MEDS ORDERED: ACETAMINOPHEN 325 MG TABLET (FP) PO PRN ×2 (12:22)
[2020-01-02] MEDS ORDERED: MAGNESIUM CITRATE 300 ML BOTTLE PO PRN (12:22)
[2020-01-02] MEDS ORDERED: MAGNESIUM HYDROX 2400MG/30ML ORAL SUSPENSION 30 ML CUP PO PRN (12:22)
[2020-01-02] MEDS ORDERED: BISMUTH SUBSALICYLATE 524 MG/30 ML UD PO PRN (12:22)
[2020-01-02] MEDS ORDERED: ONDANSETRON *ODT* 4 MG TABLET SL ONE (12:22)
[2020-01-02] MEDS ORDERED: MAG HYDROX/AL HYDROX/SIMETH 30 ML UNIT-DOSE CUP PO PRN (12:22)
[2020-01-02] MEDS ORDERED: MENTHOL/PHENOL 1 EACH UD MM PRN (12:22)
[2020-01-02] MEDS ORDERED: IBUPROFEN 400 MG TABLET (FP) PO PRN (12:22)
[2020-01-02] MEDS ORDERED: METHOCARBAMOL 500 MG TABLET PO PRN (12:22)
[2020-01-02] MEDS ORDERED: chlordiazePOXIDE HCL 25 MG CAPSULE PO PRN (12:22)
[2020-01-02 12:57] VITALS: BMI 36.8
[2020-01-02] MEDS: hydrOXYzine PAMOATE 25 MG CAPSULE (FP) PO SCH ×3 (14:11→22:49)
[2020-01-02] MEDS: chlordiazePOXIDE HCL 25 MG CAPSULE PO SCH ×2 (17:45→22:50)
[2020-01-02] MEDS: MELATONIN 5 MG TABLETS PO SCH (22:49)
[2020-01-02] MEDS: INSULIN (LEVEMIR) 100 UNITS/ML UNITS SQ SCH (22:49)
[2020-01-02] MEDS: THIAMINE HCL 100 MG TABLET (FP) PO SCH (22:50)
[2020-01-03] MEDS: INSULIN (LEVEMIR) 100 UNITS/ML UNITS SQ SCH ×2 (00:26→21:25)
[2020-01-03] MEDS: chlordiazePOXIDE HCL 25 MG CAPSULE PO SCH ×4 (05:22→22:00)
[2020-01-03] MEDS: hydrOXYzine PAMOATE 25 MG CAPSULE (FP) PO SCH ×5 (05:22→21:17)
[2020-01-03] MEDS: metFORMIN HCL 500 MG TABLET (FP) PO SCH ×2 (06:10→16:26)
--- NOTE | 2020-01-03 08:51 | CONSULT ---
[facility] Psychiatric Consult - Data Date of interview: 01/03/20 Admission source: Self-referred Identifying data: Mr Vieyra is a 49 years old single Black male, unemployed receiving unemployment, living with sister seeking detox treatment for alcohol and cocaine Substance Abuse History: Reports history of alcohol and cocaine use. Refer to addiction counselor's summary for further information Medical History: Significant for hypertension and type 2 diabetes mellitus Psychiatric History: Patient is known for five previous admission to this facility. He denies previous psychiatric hospitalization or suicidal attempt. However, reports multiple previous CPEP visits to [facility] for depression in the conrtext of alcohol intoxication. At present,denies depressive symptoms, S/H ideations. However, reports sleeping poorly and requests Belsomra 15 mg/hs prn for insomnia as he now reports [id number] mg/hs given to him during admission to this facility earlier last month was ineffective Physical/Sexual Abuse/Trauma History: Denies history of abuse as a child or DV relationship as an adult Mental Status Exam - Mental Status Exam Alert and Oriented to: Time, Place, Person Cognitive Function: Fair Patient Appearance: Well Groomed Mood: Hopeful, Euthymic Affect: Appropriate Patient Behavior: Cooperative Speech Pattern: Clear Voice Loudness: Normal Thought Process: Intact, Goal Oriented Hallucinations: Denies Suicidal Ideation: Denies Homicidal Ideation: Denies Insight/Judgement: Poor Sleep: Poorly Appetite: Good Muscle strength/Tone: Normal Gait/Station: Normal Psychiatric Findings - Problem List ([place] 1, 2,3) (1) Substance-induced sleep disorder Current Visit: No Status: Chronic (2) Alcohol dependence with uncomplicated withdrawal Current Visit: No Status: Acute (3) Cocaine dependence, uncomplicated Current Visit: No Status: Chronic (4) Hypertension Current Visit: No Status: Chronic Qualifiers: Hypertension type: essential hypertension Qualified Code(s): I10 - Essential (primary) hypertension (5) Type II diabetes mellitus Current Visit: No Status: Chronic Qualifiers: Diabetes mellitus termination clerk insulin use: unspecified termination clerk insulin use status Diabetes mellitus complication status: with hyperglycemia Qualified Code(s): E11.65 - Type 2 diabetes mellitus with hyperglycemia - Initial Treatment Plan Initial Treatment Plan: 1) Start Belsomra 15 mg po HS prn for insomnia. 2) Continue inpatient detoxification
--- NOTE | 2020-01-03 09:20 | PN ---
S CIWA - CIWA Score Nausea/Vomitin-Mild Nausea/No Vomiting Muscle Tremors: 3 Anxiety: 2 Agitation: 1-Slight > Activity Paroxysmal Sweats: 1-Minimal Palms Moist Orientation: 0-Oriented Tacttile Disturbances: 0-None Auditory Disturbances: 0-None Visual Disturbances: 1-Very Mild Sensitivity Headache: 2-Mild CIWA-Ar Total Score: 11 BHS Progress Note (SOAP) Subjective: 49 years old male admitted on 01/02/20 for alcohol withdrawal sx management treating with librium detox regiment medical history of insulin dependent diabetes Laboratory Tests 01/02/20 01/02/20 01/03/20 13:29 16:41 00:09 POC Glucometer 296 317 395 01/03/20 05:20 POC Glucometer 176 order insulin coverage bid ac order bgm hs order insulin coverage hs Objective: 01/03/20 09:29 Vital Signs - 24 hr 01/02/20 01/02/20 01/02/20 12:54 14:00 16:36 Temperature 97.8 F 97.1 F L 97.3 F L Pulse Rate 95 H 98 H 102 H Respiratory 18 18 18 Rate Blood Pressure 126/72 150/84 145/87 O2 Sat by Pulse 98 Oximetry (%) 01/02/20 01/03/20 01/03/20 20:57 05:10 08:39 Temperature 97.3 F L 97.1 F L 97.3 F L Pulse Rate 98 H 90 92 H Respiratory 18 18 18 Rate Blood Pressure 125/76 142/89 146/93 O2 Sat by Pulse 95 96 Oximetry (%) Laboratory Tests 01/02/20 01/02/20 01/03/20 13:29 16:41 00:09 POC Glucometer 296 317 395 01/03/20 05:20 POC Glucometer 176 Assessment: 01/03/20 09:29 alcohol withdrawl insulin dependent diabetes Plan: librium regiment bgm with insulin coverage
[2020-01-03] MEDS: PRENATAL VITAMINS W/ FOLIC ACID TABLET (FP) PO SCH (10:29)
[2020-01-03] MEDS: HYDROCHLOROTHIAZIDE 12.5 MG CAPSULE (FP) PO SCH (10:31)
[2020-01-03] MEDS ORDERED: INSULIN SLIDING SCALE (NOVOLOG) 1 VIAL SQ SCH (11:00)
[2020-01-03 12:32] LABS: HEMATOCRIT 39.5 % (35.4-49); MCH 27.9 pg (25.7-33.7); MCHC 32.8 g/dl (32.0-35.9); MEAN CELL VOLUME 84.9 fl (80-96); PLATELET COUNT 169 K/MM3 (134-434); RBC 4.65 M/mm3 (4.00-5.60); RDW 14.8 % (11.9-15.9); WHITE BLOOD COUNT 3.7 K/mm3 (4.0-10.0)
[2020-01-03 12:44] LABS: ALBUMIN 3.3 g/dl (3.4-5.0); BILIRUBIN,TOTAL 0.4 mg/dL (0.2-1); BLOOD UREA NITROGEN 11.1 mg/dL (7-18); CALCIUM 8.4 mg/dL (8.5-10.1); CREATININE 0.9 mg/dL (0.55-1.3); POTASSIUM 3.9 mmol/L (3.5-5.1); TOT PROT 6.3 g/dl (6.4-8.2)
[2020-01-03] MEDS: INSULIN SLIDING SCALE (NOVOLOG) 1 VIAL SQ SCH ×2 (16:20→21:26)
[2020-01-03] MEDS: MELATONIN 5 MG TABLETS PO SCH (21:15)
[2020-01-03] MEDS: THIAMINE HCL 100 MG TABLET (FP) PO SCH (21:17)
[2020-01-03] MEDS ORDERED: SUVOREXANT 10 MG TABLET PO PRN (22:00)
[2020-01-04] MEDS: hydrOXYzine PAMOATE 25 MG CAPSULE (FP) PO SCH ×5 (05:51→22:24)
[2020-01-04] MEDS: chlordiazePOXIDE HCL 25 MG CAPSULE PO SCH ×4 (05:51→22:23)
[2020-01-04] MEDS: metFORMIN HCL 500 MG TABLET (FP) PO SCH ×2 (06:03→17:35)
[2020-01-04] MEDS: INSULIN SLIDING SCALE (NOVOLOG) 1 VIAL SQ SCH ×3 (07:50→22:25)
--- NOTE | 2020-01-04 09:43 | PN ---
S CIWA - CIWA Score Nausea/Vomitin-Mild Nausea/No Vomiting Muscle Tremors: 2 Anxiety: 2 Agitation: 1-Slight > Activity Paroxysmal Sweats: 1-Minimal Palms Moist Orientation: 0-Oriented Tacttile Disturbances: 0-None Auditory Disturbances: 0-None Visual Disturbances: 1-Very Mild Sensitivity Headache: 0-None Present CIWA-Ar Total Score: 8 BHS Progress Note (SOAP) Subjective: 49 years old male admitted on 01/02/20 for alcohol withdrawal sx management treating with librium detox regiment Vital Signs - 24 hr 01/03/20 01/03/20 01/03/20 13:26 16:40 20:39 Temperature 97.7 F 97.1 F L 97.3 F L Pulse Rate 92 H 91 H 99 H Respiratory 20 19 18 Rate Blood Pressure 153/87 141/87 162/90 O2 Sat by Pulse 98 98 Oximetry (%) 01/04/20 01/04/20 06:00 08:43 Temperature 97.7 F 98.3 F Pulse Rate 86 94 H Respiratory 18 16 Rate Blood Pressure 141/84 156/92 O2 Sat by Pulse 96 Oximetry (%) bp elevation lisinopril 10 mg po bid initiated Objective: 01/04/20 09:43 Laboratory Tests 01/02/20 01/02/20 01/02/20 13:10 13:29 16:41 WBC RBC Hgb Hct MCV MCH MCHC RDW Plt Count MPV Sodium Potassium Chloride Carbon Dioxide Anion Gap BUN Creatinine Est GFR (CKD-EPI)AfAm Est GFR (CKD-EPI)NonAf POC Glucometer 296 317 Random Glucose Calcium Total Bilirubin AST ALT Alkaline Phosphatase Total Protein Albumin Syphilis Serology RPR Titer COVID-19 (DELANO) Not detected 01/03/20 01/03/20 01/03/20 00:09 05:20 07:20 WBC RBC Hgb Hct MCV MCH MCHC RDW Plt Count MPV Sodium Potassium Chloride Carbon Dioxide Anion Gap BUN Creatinine Est GFR (CKD-EPI)AfAm Est GFR (CKD-EPI)NonAf POC Glucometer 395 176 Random Glucose Calcium Total Bilirubin AST ALT Alkaline Phosphatase Total Protein Albumin Syphilis Serology Reactive A* RPR Titer COVID-19 (DELANO) 01/03/20 01/03/20 01/03/20 07:20 07:20 07:20 WBC 3.7 L RBC 4.65 Hgb 13.0 Hct 39.5 MCV 84.9 MCH 27.9 MCHC 32.8 RDW 14.8 Plt Count 169 D MPV 9.0 Sodium 136 Potassium 3.9 Chloride 106 Carbon Dioxide 28 Anion Gap 1 L BUN 11.1 Creatinine 0.9 Est GFR (CKD-EPI)AfAm 115.02 Est GFR (CKD-EPI)NonAf 99.24 POC Glucometer Random Glucose 163 H Calcium 8.4 L Total Bilirubin 0.4 AST 11 L ALT 18 Alkaline Phosphatase 113 Total Protein 6.3 L Albumin 3.3 L Syphilis Serology RPR Titer Reactive 1:1 H COVID-19 (DELANO) 01/03/20 01/03/20 01/04/20 16:14 21:12 05:54 WBC RBC Hgb Hct MCV MCH MCHC RDW Plt Count MPV Sodium Potassium Chloride Carbon Dioxide Anion Gap BUN Creatinine Est GFR (CKD-EPI)AfAm Est GFR (CKD-EPI)NonAf POC Glucometer 298 552 180 Random Glucose Calcium Total Bilirubin AST ALT Alkaline Phosphatase Total Protein Albumin Syphilis Serology RPR Titer COVID-19 (DELANO) bgm gradually lowering through out the detox insulin dependent diabetes Assessment: 01/04/20 09:44 alcohol withdrawal diabetes II hypertension Plan: librium regiment lisinopril 10 mg po bid
[2020-01-04] MEDS: LISINOPRIL 10 MG TABLET (FP) PO SCH ×2 (10:59→22:23)
[2020-01-04] MEDS: HYDROCHLOROTHIAZIDE 12.5 MG CAPSULE (FP) PO SCH (11:00)
[2020-01-04] MEDS: PRENATAL VITAMINS W/ FOLIC ACID TABLET (FP) PO SCH (11:00)
[2020-01-04] MEDS ORDERED: METOPROLOL TARTRATE 25 MG TABLET (FP) PO ONE (21:21)
--- NOTE | 2020-01-04 21:21 | PN ---
S Progress Note Note: CALLED BY NURSING FOR ELEVATED BP Vital Signs - 24 hr 01/04/20 01/04/20 01/04/20 06:00 08:43 12:48 Temperature 97.7 F 98.3 F 97.7 F Pulse Rate 86 94 H 95 H Respiratory 18 16 16 Rate Blood Pressure 141/84 156/92 141/82 O2 Sat by Pulse 96 97 Oximetry (%) 01/04/20 01/04/20 16:30 20:39 Temperature 97.1 F L 97.3 F L Pulse Rate 91 H 94 H Respiratory 18 16 Rate Blood Pressure 157/96 158/97 O2 Sat by Pulse 97 Oximetry (%) p : METOPROLOL 25 MG X ONCE .
[2020-01-04] MEDS ORDERED: SUVOREXANT 15 MG TABLET PO PRN (21:38)
[2020-01-04] MEDS: THIAMINE HCL 100 MG TABLET (FP) PO SCH (22:24)
[2020-01-04] MEDS: MELATONIN 5 MG TABLETS PO SCH (22:24)
[2020-01-04] MEDS: INSULIN (LEVEMIR) 100 UNITS/ML UNITS SQ SCH (22:26)
[2020-01-05] MEDS ORDERED: chlordiazePOXIDE HCL 10 MG CAPSULE PO PRN
[2020-01-05] MEDS: chlordiazePOXIDE HCL 10 MG CAPSULE PO SCH ×4 (05:00→22:16)
[2020-01-05] MEDS: hydrOXYzine PAMOATE 25 MG CAPSULE (FP) PO SCH ×5 (06:00→22:16)
[2020-01-05] MEDS: metFORMIN HCL 500 MG TABLET (FP) PO SCH ×2 (07:35→17:25)
[2020-01-05] MEDS: INSULIN SLIDING SCALE (NOVOLOG) 1 VIAL SQ SCH ×3 (07:35→22:36)
[2020-01-05] MEDS: HYDROCHLOROTHIAZIDE 12.5 MG CAPSULE (FP) PO SCH (09:30)
[2020-01-05] MEDS: LISINOPRIL 10 MG TABLET (FP) PO SCH ×2 (10:30→22:16)
[2020-01-05] MEDS: PRENATAL VITAMINS W/ FOLIC ACID TABLET (FP) PO SCH (10:30)
--- NOTE | 2020-01-05 12:09 | PN ---
[facility] CIWA - CIWA Score Nausea/Vomitin-Mild Nausea/No Vomiting Muscle Tremors: 2 Anxiety: 2 Agitation: 1-Slight > Activity Paroxysmal Sweats: No Perspiration Orientation: 0-Oriented Tacttile Disturbances: 0-None Auditory Disturbances: 0-None Visual Disturbances: 0-None Headache: 1-Very Mild CIWA-Ar Total Score: 7 S Progress Note (SOAP) Subjective: alert,irritable,interrupted sleep,tremor,aching pain Objective: 01/05/20 12:04 Vital Signs Temperature 97.1 F L 01/05/20 08:46 Pulse Rate 87 01/05/20 08:46 Respiratory Rate 18 01/05/20 08:46 Blood Pressure 113/76 01/05/20 08:46 O2 Sat by Pulse Oximetry (%) 97 01/04/20 20:39 Laboratory Last Values WBC 3.7 K/mm3 (4.0-10.0) L 01/03/20 07:20 RBC 4.65 M/mm3 (4.00-5.60) 01/03/20 07:20 Hgb 13.0 GM/dL (11.7-16.9) 01/03/20 07:20 Hct 39.5 % (35.4-49) 01/03/20 07:20 MCV 84.9 fl (80-96) 01/03/20 07:20 MCH 27.9 pg (25.7-33.7) 01/03/20 07:20 MCHC 32.8 g/dl (32.0-35.9) 01/03/20 07:20 RDW 14.8 % (11.9-15.9) 01/03/20 07:20 Plt Count 169 K/MM3 (134-434) D 01/03/20 07:20 MPV 9.0 fl (7.5-11.1) 01/03/20 07:20 Sodium 136 mmol/L (136-145) 01/03/20 07:20 Potassium 3.9 mmol/L (3.5-5.1) 01/03/20 07:20 Chloride 106 mmol/L (98-107) 01/03/20 07:20 Carbon Dioxide 28 mmol/L (21-32) 01/03/20 07:20 Anion Gap 1 MMOL/L (8-16) L 01/03/20 07:20 BUN 11.1 mg/dL (7-18) 01/03/20 07:20 Creatinine 0.9 mg/dL (0.55-1.3) 01/03/20 07:20 Est GFR (CKD-EPI)AfAm 115.02 01/03/20 07:20 Est GFR (CKD-EPI)NonAf 99.24 01/03/20 07:20 POC Glucometer 361 UNITS (80-120) 01/04/20 21:07 Random Glucose 163 mg/dL (74-106) H 01/03/20 07:20 Calcium 8.4 mg/dL (8.5-10.1) L 01/03/20 07:20 Total Bilirubin 0.4 mg/dL (0.2-1) 01/03/20 07:20 AST 11 U/L (15-37) L 01/03/20 07:20 ALT 18 U/L (13-61) 01/03/20 07:20 Alkaline Phosphatase 113 U/L (45-117) 01/03/20 07:20 Total Protein 6.3 g/dl (6.4-8.2) L 01/03/20 07:20 Albumin 3.3 g/dl (3.4-5.0) L 01/03/20 07:20 Syphilis Serology Reactive (NONREACTIVE) A* 01/03/20 07:20 RPR Titer Reactive 1:1 (NONREACTIVE) H 01/03/20 07:20 COVID-19 (DELANO) Not detected (Not Detected) 01/02/20 13:10 adequately treated for syphilis in the past Assessment: 01/05/20 12:06 withdrawal symptom Plan: continue detox librium regimen,non compliance with medication and diet,bgm monitoring
[2020-01-05] MEDS: THIAMINE HCL 100 MG TABLET (FP) PO SCH (22:16)
[2020-01-05] MEDS: MELATONIN 5 MG TABLETS PO SCH (22:20)
[2020-01-05] MEDS: INSULIN (LEVEMIR) 100 UNITS/ML UNITS SQ SCH (22:35)
[2020-01-06] MEDS ORDERED: chlordiazePOXIDE HCL 10 MG CAPSULE PO SCH (05:00)
[2020-01-06] MEDS: metFORMIN HCL 500 MG TABLET (FP) PO SCH (06:52)
[2020-01-06] MEDS: hydrOXYzine PAMOATE 25 MG CAPSULE (FP) PO SCH ×2 (06:52→10:48)
[2020-01-06] MEDS ORDERED: INSULIN SLIDING SCALE (NOVOLOG) 1 VIAL SQ ONE (06:56)
[2020-01-06] MEDS: INSULIN SLIDING SCALE (NOVOLOG) 1 VIAL SQ SCH (06:57)
[2020-01-06] MEDS: LISINOPRIL 10 MG TABLET (FP) PO SCH (10:48)
[2020-01-06] MEDS: PRENATAL VITAMINS W/ FOLIC ACID TABLET (FP) PO SCH (10:48)
[2020-01-06] MEDS: HYDROCHLOROTHIAZIDE 12.5 MG CAPSULE (FP) PO SCH (10:48)
--- NOTE | 2020-01-06 12:54 | PN ---
S CIWA - CIWA Score Nausea/Vomitin-Mild Nausea/No Vomiting Muscle Tremors: 2 Anxiety: 1-Mildly Anxious Agitation: 1-Slight > Activity Paroxysmal Sweats: No Perspiration Orientation: 0-Oriented Tacttile Disturbances: 0-None Auditory Disturbances: 0-None Visual Disturbances: 0-None Headache: 1-Very Mild CIWA-Ar Total Score: 6 BHS Progress Note (SOAP) Subjective: alert,irritable,anxious,interrupted sleep,aching pain in the body and back Objective: 01/06/20 12:51 Vital Signs Temperature 96.8 F L 01/06/20 08:36 Pulse Rate 91 H 01/06/20 08:36 Respiratory Rate 18 01/06/20 08:36 Blood Pressure 142/94 01/06/20 08:36 O2 Sat by Pulse Oximetry (%) 95 01/06/20 06:48 01/06/20 12:52 Laboratory 01/02/20 01/02/20 01/02/20 13:10 13:29 16:41 WBC RBC Hgb Hct MCV MCH MCHC RDW Plt Count MPV Sodium Potassium Chloride Carbon Dioxide Anion Gap BUN Creatinine Est GFR (CKD-EPI)AfAm Est GFR (CKD-EPI)NonAf POC Glucometer 296 UNITS UNITS 317 UNITS UNITS (80-120) (80-120) Random Glucose Calcium Total Bilirubin AST ALT Alkaline Phosphatase Total Protein Albumin Syphilis Serology RPR Titer COVID-19 (DELANO) Not detected (Not Detected) 01/03/20 01/03/20 01/03/20 00:09 05:20 07:20 WBC RBC Hgb Hct MCV MCH MCHC RDW Plt Count MPV Sodium Potassium Chloride Carbon Dioxide Anion Gap BUN Creatinine Est GFR (CKD-EPI)AfAm Est GFR (CKD-EPI)NonAf POC Glucometer 395 UNITS UNITS 176 UNITS UNITS (80-120) (80-120) Random Glucose Calcium Total Bilirubin AST ALT Alkaline Phosphatase Total Protein Albumin Syphilis Serology Reactive A* (NONREACTIVE) RPR Titer COVID-19 (DELANO) 01/03/20 01/03/20 01/03/20 07:20 07:20 07:20 WBC 3.7 K/mm3 L K/mm3 (4.0-10.0) RBC 4.65 M/mm3 M/mm3 (4.00-5.60) Hgb 13.0 GM/dL GM/dL (11.7-16.9) Hct 39.5 % % (35.4-49) MCV 84.9 fl fl (80-96) MCH 27.9 pg pg (25.7-33.7) MCHC 32.8 g/dl g/dl (32.0-35.9) RDW 14.8 % % (11.9-15.9) Plt Count 169 K/MM3 D K/MM3 (134-434) MPV 9.0 fl fl (7.5-11.1) Sodium 136 mmol/L mmol/L (136-145) Potassium 3.9 mmol/L mmol/L (3.5-5.1) Chloride 106 mmol/L mmol/L (98-107) Carbon Dioxide 28 mmol/L mmol/L (21-32) Anion Gap 1 MMOL/L L MMOL/L (8-16) BUN 11.1 mg/dL mg/dL (7-18) Creatinine 0.9 mg/dL mg/dL (0.55-1.3) Est GFR (CKD-EPI)AfAm 115.02 Est GFR (CKD-EPI)NonAf 99.24 POC Glucometer Random Glucose 163 mg/dL H mg/dL (74-106) Calcium 8.4 mg/dL L mg/dL (8.5-10.1) Total Bilirubin 0.4 mg/dL mg/dL (0.2-1) AST 11 U/L L U/L (15-37) ALT 18 U/L U/L (13-61) Alkaline Phosphatase 113 U/L U/L (45-117) Total Protein 6.3 g/dl L g/dl (6.4-8.2) Albumin 3.3 g/dl L g/dl (3.4-5.0) Syphilis Serology RPR Titer Reactive 1:1 H (NONREACTIVE) COVID-19 (DELANO) 01/03/20 01/03/20 01/04/20 16:14 21:12 05:54 WBC RBC Hgb Hct MCV MCH MCHC RDW Plt Count MPV Sodium Potassium Chloride Carbon Dioxide Anion Gap BUN Creatinine Est GFR (CKD-EPI)AfAm Est GFR (CKD-EPI)NonAf POC Glucometer 298 UNITS UNITS 552 UNITS UNITS 180 UNITS UNITS (80-120) (80-120) (80-120) Random Glucose Calcium Total Bilirubin AST ALT Alkaline Phosphatase Total Protein Albumin Syphilis Serology RPR Titer COVID-19 (DELANO) 01/04/20 01/05/20 01/05/20 21:07 16:38 22:15 WBC RBC Hgb Hct MCV MCH MCHC RDW Plt Count MPV Sodium Potassium Chloride Carbon Dioxide Anion Gap BUN Creatinine Est GFR (CKD-EPI)AfAm Est GFR (CKD-EPI)NonAf POC Glucometer 361 UNITS UNITS 329 UNITS UNITS 366 UNITS UNITS (80-120) (80-120) (80-120) Random Glucose Calcium Total Bilirubin AST ALT Alkaline Phosphatase Total Protein Albumin Syphilis Serology RPR Titer COVID-19 (DELANO) 01/06/20 06:51 WBC RBC Hgb Hct MCV MCH MCHC RDW Plt Count MPV Sodium Potassium Chloride Carbon Dioxide Anion Gap BUN Creatinine Est GFR (CKD-EPI)AfAm Est GFR (CKD-EPI)NonAf POC Glucometer 225 UNITS UNITS (80-120) Random Glucose Calcium Total Bilirubin AST ALT Alkaline Phosphatase Total Protein Albumin Syphilis Serology RPR Titer COVID-19 (DELANO) Assessment: 01/06/20 12:52 withdrawal symptom Plan: continue detox librium regimen,bgm monitoring with insulin coverage,discharge in am
[2020-01-06 13:06] VITALS: BP 134/80; PULSE 90; TEMP 97.3
--- NOTE | 2020-01-06 15:29 | DS ---
[facility] Detox Discharge Summary Admission Date: 01/02/20 Discharge Date: 01/06/20 - History Present History: Alcohol Dependence Additional Comments: 49 years old male admitted on 01/02/20 for alcohol withdrawal sx management treated with librium detox regiment seen by psychiatrist precious de los santos mr girard insists to leave the detox unit today instead of estimated date of 01/07/20 reports feeling better prefers to begin alcohol recovery today alert oriented x 3 speech clearly coherently General Appearance: Yes: Moderate Distress, Tremorous, Irritable, Sweating, Anxious HEENTM: Yes: Normal ENT Inspection, [place], Pharynx Normal Respiratory: Yes: Lungs Clear, Normal Breath Sounds, No Respiratory Distress Neck: Yes: Within Normal Limits, Supple, Trachea in good position Breast: Yes: Within Normal Limits Cardiology: Yes: Within Normal Limits, Regular Rhythm, Regular Rate, S1, S2 Abdominal: Yes: Within Normal Limits, Normal Bowel Sounds, Non Tender, Soft Genitourinary: Yes: Within Normal Limits Back: Yes: Muscle Spasm Musculoskeletal: Yes: Back pain, Muscle Pain Extremities: Yes: Tremors 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 NML intact, Fully Oriented, Alert, Motor Strength 5/5 Integumentary: Yes: Dry Lymphatic: Yes: Within Normal Limits Pertinent Past History: time for discharge 45 minutes treatment team met with mr girard to discuss the benefits of librium completion - Physical Exam Results Vital Signs: Vital Signs Temperature 97.3 F L 01/06/20 12:39 Pulse Rate 90 01/06/20 12:39 Respiratory Rate 16 01/06/20 12:39 Blood Pressure 134/80 01/06/20 12:39 O2 Sat by Pulse Oximetry (%) 98 01/06/20 12:39 Pertinent Admission Physical Exam Findings: alcohol withdrawal Laboratory Tests 01/02/20 01/02/20 01/02/20 13:10 13:29 16:41 WBC RBC Hgb Hct MCV MCH MCHC RDW Plt Count MPV Sodium Potassium Chloride Carbon Dioxide Anion Gap BUN Creatinine Est GFR (CKD-EPI)AfAm Est GFR (CKD-EPI)NonAf POC Glucometer 296 317 Random Glucose Calcium Total Bilirubin AST ALT Alkaline Phosphatase Total Protein Albumin Syphilis Serology RPR Titer COVID-19 (DELANO) Not detected 01/03/20 01/03/20 01/03/20 00:09 05:20 07:20 WBC RBC Hgb Hct MCV MCH MCHC RDW Plt Count MPV Sodium Potassium Chloride Carbon Dioxide Anion Gap BUN Creatinine Est GFR (CKD-EPI)AfAm Est GFR (CKD-EPI)NonAf POC Glucometer 395 176 Random Glucose Calcium Total Bilirubin AST ALT Alkaline Phosphatase Total Protein Albumin Syphilis Serology Reactive A* RPR Titer COVID-19 (DELANO) 01/03/20 01/03/20 01/03/20 07:20 07:20 07:20 WBC 3.7 L RBC 4.65 Hgb 13.0 Hct 39.5 MCV 84.9 MCH 27.9 MCHC 32.8 RDW 14.8 Plt Count 169 D MPV 9.0 Sodium 136 Potassium 3.9 Chloride 106 Carbon Dioxide 28 Anion Gap 1 L BUN 11.1 Creatinine 0.9 Est GFR (CKD-EPI)AfAm 115.02 Est GFR (CKD-EPI)NonAf 99.24 POC Glucometer Random Glucose 163 H Calcium 8.4 L Total Bilirubin 0.4 AST 11 L ALT 18 Alkaline Phosphatase 113 Total Protein 6.3 L Albumin 3.3 L Syphilis Serology RPR Titer Reactive 1:1 H COVID-19 (DELANO) 01/03/20 01/03/20 01/04/20 16:14 21:12 05:54 WBC RBC Hgb Hct MCV MCH MCHC RDW Plt Count MPV Sodium Potassium Chloride Carbon Dioxide Anion Gap BUN Creatinine Est GFR (CKD-EPI)AfAm Est GFR (CKD-EPI)NonAf POC Glucometer 298 552 180 Random Glucose Calcium Total Bilirubin AST ALT Alkaline Phosphatase Total Protein Albumin Syphilis Serology RPR Titer COVID-19 (DELANO) 01/04/20 01/05/20 01/05/20 21:07 16:38 22:15 WBC RBC Hgb Hct MCV MCH MCHC RDW Plt Count MPV Sodium Potassium Chloride Carbon Dioxide Anion Gap BUN Creatinine Est GFR (CKD-EPI)AfAm Est GFR (CKD-EPI)NonAf POC Glucometer [phone] Random Glucose Calcium Total Bilirubin AST ALT Alkaline Phosphatase Total Protein Albumin Syphilis Serology RPR Titer COVID-19 (DELANO) 01/06/20 06:51 WBC RBC Hgb Hct MCV MCH MCHC RDW Plt Count MPV Sodium Potassium Chloride Carbon Dioxide Anion Gap BUN Creatinine Est GFR (CKD-EPI)AfAm Est GFR (CKD-EPI)NonAf POC Glucometer 225 Random Glucose Calcium Total Bilirubin AST ALT Alkaline Phosphatase Total Protein Albumin Syphilis Serology RPR Titer COVID-19 (DELANO) long history of diabetes mr girard agrees to follow up with endocranologist in the [facility] - Treatment Hospital Course: Detox Protocol Followed, Detoxed Safely, Responded well, Discharged Condition Good, Rehab Referral Accepted Patient has Accepted a [facility] Referral to: [facility] - Medication Discharge Medications: Ambulatory Orders Hydrochlorothiazide [Hctz -] 12.5 mg PO DAILY 07/04/17 metFORMIN HCL [Glucophage -] 500 mg PO BID 07/04/17 Insulin Detemir [Levemir Flextouch] 35 unit SQ HS 10/03/17 - Diagnosis (1) Substance induced mood disorder Status: Suspected (2) Alcohol dependence with uncomplicated withdrawal Status: Acute (3) Hypertension Status: Chronic Qualifiers: Hypertension type: essential hypertension Qualified Code(s): I10 - Essential (primary) hypertension (4) Nicotine dependence Status: Acute Qualifiers: Nicotine product type: cigarettes Substance use status: in withdrawal Qualified Code(s): F17.213 - Nicotine dependence, cigarettes, with withdrawal (5) Type II diabetes mellitus Status: Chronic Qualifiers: Diabetes mellitus emt intermediate insulin use: with intermediate use Diabetes mellitus complication status: with hyperglycemia Qualified Code(s): E11.65 - Type 2 diabetes mellitus with hyperglycemia; 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
[2020-01-07] MEDS ORDERED: chlordiazePOXIDE HCL 10 MG CAPSULE PO ONE (05:00)
== END 2020-01-06 14:11 | disposition other institution (70) | DRG 774 ==
LOC: YASAS 09:38 → Y3N 12:48
PROVIDERS: ADMIT Allergy & Immunology; ATTEND Allergy & Immunology
PROC: HZ2ZZZZ Detoxification Services for Substance Abuse Treatment (ICD-10-PCS; principal; 2020-01-02)
DX: F10.230 Alcohol dependence with withdrawal, uncomplicated (principal); F14.20 Cocaine dependence, uncomplicated; F17.213 Nicotine dependence, cigarettes, with withdrawal; F19.24 Other psychoactive substance dependence with psychoactive substance-induced mood disorder; F19.282 Other psychoactive substance dependence with psychoactive substance-induced sleep disorder; F41.9 Anxiety disorder, unspecified; F32.9 Major depressive disorder, single episode, unspecified; I10 Essential (primary) hypertension; E11.65 Type 2 diabetes mellitus with hyperglycemia; Z79.4 Long term (current) use of insulin; Z88.0 Allergy status to penicillin; Z91.010 Allergy to peanuts; Z87.438 Personal history of other diseases of male genital organs; Z91.013 Allergy to seafood; Z56.0 Unemployment, unspecified
CPT/HCPCS: 36415; 80053; 82962; 85027; 86593; 86780; Q0162; U0003

== ENCOUNTER 2020-07-07 10:46 | Inpatient (IN) | payer OTHER ==
[2020-07-07 11:14] VITALS: BMI 39.3
[2020-07-07] MEDS ORDERED: LISINOPRIL 10 MG TABLET PO ONE (12:15)
[2020-07-07] MEDS ORDERED: ACETAMINOPHEN 325 MG TABLET (FP) PO PRN ×2 (13:23)
[2020-07-07] MEDS ORDERED: ONDANSETRON *ODT* 4 MG TABLET SL PRN (13:23)
[2020-07-07] MEDS ORDERED: MAGNESIUM HYDROX 2400MG/30ML ORAL SUSPENSION 30 ML CUP PO PRN (13:23)
[2020-07-07] MEDS ORDERED: METHOCARBAMOL 500 MG TABLET PO PRN (13:23)
[2020-07-07] MEDS ORDERED: chlordiazePOXIDE HCL 25 MG CAPSULE PO PRN (13:23)
[2020-07-07] MEDS ORDERED: MAG HYDROX/AL HYDROX/SIMETH 30 ML UNIT-DOSE CUP PO PRN (13:23)
[2020-07-07] MEDS ORDERED: NICOTINE POLACRILEX 2 MG GUM BUC PRN (13:23)
[2020-07-07] MEDS ORDERED: IBUPROFEN 400 MG TABLET (FP) PO PRN (13:23)
[2020-07-07] MEDS ORDERED: BISMUTH SUBSALICYLATE 524 MG/30 ML UD PO PRN (13:23)
[2020-07-07] MEDS ORDERED: MENTHOL/PHENOL 1 EACH UD MM PRN (13:23)
[2020-07-07] MEDS ORDERED: MAGNESIUM CITRATE 300 ML BOTTLE PO PRN (13:23)
[2020-07-07] MEDS: hydrOXYzine PAMOATE 25 MG CAPSULE (FP) PO SCH ×3 (13:51→22:03)
[2020-07-07 15:25] LABS: POTASSIUM 4.1 mmol/L (3.5-5.1)
[2020-07-07 15:27] LABS: HEMATOCRIT 43.2 % (35.4-49); HEMOGLOBIN 14.4 GM/dL (11.7-16.9); MCH 27.6 pg (25.7-33.7); MCHC 33.3 g/dl (32.0-35.9); MEAN CELL VOLUME 82.8 fl (80-96); MEAN PLT VOLUME 8.9 fl (7.5-11.1); PLATELET COUNT 172 K/MM3 (134-434); RBC 5.22 M/mm3 (4.00-5.60); RDW 13.8 % (11.9-15.9)
[2020-07-07 15:30] LABS: BLOOD UREA NITROGEN 12.9 mg/dL (7-18); CALCIUM 8.9 mg/dL (8.5-10.1)
[2020-07-07 15:31] LABS: ALBUMIN 4.2 g/dl (3.4-5.0)
[2020-07-07 15:35] LABS: BILIRUBIN,TOTAL 1.5 mg/dL (0.2-1); TOT PROT 7.7 g/dl (6.4-8.2)
[2020-07-07] MEDS: chlordiazePOXIDE HCL 25 MG CAPSULE PO SCH ×2 (17:28→22:04)
[2020-07-07] MEDS: THIAMINE HCL 100 MG TABLET (FP) PO SCH (22:03)
[2020-07-07] MEDS: MELATONIN 5 MG TABLETS PO SCH (22:03)
[2020-07-07] MEDS: INSULIN (LEVEMIR) 100 UNITS/ML UNITS SQ SCH (22:04)
[2020-07-07] MEDS: traZODone HCL 100 MG TABLET (FP) PO SCH (22:04)
[2020-07-08] MEDS: hydrOXYzine PAMOATE 25 MG CAPSULE (FP) PO SCH ×5 (05:32→22:23)
[2020-07-08] MEDS: chlordiazePOXIDE HCL 25 MG CAPSULE PO SCH ×3 (05:32→18:05)
[2020-07-08] MEDS: PRENATAL VITAMINS W/ FOLIC ACID TABLET (FP) PO SCH (10:20)
[2020-07-08] MEDS: HYDROCHLOROTHIAZIDE 25 MG TABLET (FP) PO SCH (10:20)
[2020-07-08] MEDS: INSULIN (NOVOLOG) ASPART 100 UNITS/ML 10ML VIAL SQ SCH ×2 (16:25→22:24)
[2020-07-08] MEDS ORDERED: INSULIN (NOVOLOG) ASPART 100 UNITS/ML 10ML VIAL ONE (16:32)
[2020-07-08] MEDS ORDERED: INSULIN (LEVEMIR) 100 UNITS/ML UNITS SQ ONE (20:17)
[2020-07-08] MEDS: THIAMINE HCL 100 MG TABLET (FP) PO SCH (22:23)
[2020-07-08] MEDS: traZODone HCL 100 MG TABLET (FP) PO SCH (22:23)
[2020-07-08] MEDS: MELATONIN 5 MG TABLETS PO SCH (22:25)
[2020-07-08] MEDS: INSULIN (LEVEMIR) 100 UNITS/ML UNITS SQ SCH (22:25)
[2020-07-09] MEDS: INSULIN (NOVOLOG) ASPART 100 UNITS/ML 10ML VIAL SQ SCH ×4 (06:56→22:03)
[2020-07-09] MEDS: hydrOXYzine PAMOATE 25 MG CAPSULE (FP) PO SCH ×5 (06:59→22:01)
[2020-07-09] MEDS: chlordiazePOXIDE HCL 25 MG CAPSULE PO SCH ×5 (07:02→22:01)
[2020-07-09] MEDS: HYDROCHLOROTHIAZIDE 25 MG TABLET (FP) PO SCH (11:36)
[2020-07-09] MEDS: PRENATAL VITAMINS W/ FOLIC ACID TABLET (FP) PO SCH (11:37)
[2020-07-09] MEDS ORDERED: INSULIN (NOVOLOG) ASPART 100 UNITS/ML 10ML VIAL ONE (17:04)
[2020-07-09] MEDS: traZODone HCL 100 MG TABLET (FP) PO SCH (22:01)
[2020-07-09] MEDS: THIAMINE HCL 100 MG TABLET (FP) PO SCH (22:01)
[2020-07-09] MEDS: MELATONIN 5 MG TABLETS PO SCH (22:02)
[2020-07-09] MEDS: INSULIN (LEVEMIR) 100 UNITS/ML UNITS SQ SCH (22:03)
[2020-07-10] MEDS ORDERED: chlordiazePOXIDE HCL 10 MG CAPSULE PO PRN
[2020-07-10] MEDS: chlordiazePOXIDE HCL 10 MG CAPSULE PO SCH ×5 (07:03→22:36)
[2020-07-10] MEDS: hydrOXYzine PAMOATE 25 MG CAPSULE (FP) PO SCH ×6 (07:03→22:39)
[2020-07-10] MEDS: INSULIN (NOVOLOG) ASPART 100 UNITS/ML 10ML VIAL SQ SCH ×5 (07:03→22:38)
[2020-07-10] MEDS: HYDROCHLOROTHIAZIDE 25 MG TABLET (FP) PO SCH (10:45)
[2020-07-10] MEDS: PRENATAL VITAMINS W/ FOLIC ACID TABLET (FP) PO SCH (10:58)
[2020-07-10] MEDS ORDERED: cloNIDine HCL 0.1 MG TABLET PO PRN (11:44)
[2020-07-10] MEDS ORDERED: INSULIN (NOVOLOG) ASPART 100 UNITS/ML 10ML VIAL ONE (16:56)
[2020-07-10] MEDS ORDERED: traZODone HCL 50 MG TABLET (FP) ONE (21:02)
[2020-07-10] MEDS: traZODone HCL 100 MG TABLET (FP) PO SCH (22:35)
[2020-07-10] MEDS: THIAMINE HCL 100 MG TABLET (FP) PO SCH (22:36)
[2020-07-10] MEDS: INSULIN (LEVEMIR) 100 UNITS/ML UNITS SQ SCH (22:38)
[2020-07-10] MEDS: MELATONIN 5 MG TABLETS PO SCH (22:38)
[2020-07-11] MEDS: chlordiazePOXIDE HCL 10 MG CAPSULE PO SCH ×2 (07:01→17:58)
[2020-07-11] MEDS: hydrOXYzine PAMOATE 25 MG CAPSULE (FP) PO SCH ×5 (07:01→22:14)
[2020-07-11] MEDS: INSULIN (NOVOLOG) ASPART 100 UNITS/ML 10ML VIAL SQ SCH ×4 (07:06→22:18)
[2020-07-11] MEDS ORDERED: INSULIN (NOVOLOG) ASPART 100 UNITS/ML 10ML VIAL ONE ×4 (08:16→23:10)
[2020-07-11] MEDS: HYDROCHLOROTHIAZIDE 25 MG TABLET (FP) PO SCH (10:16)
[2020-07-11] MEDS: PRENATAL VITAMINS W/ FOLIC ACID TABLET (FP) PO SCH (10:16)
[2020-07-11] MEDS: MELATONIN 5 MG TABLETS PO SCH (22:14)
[2020-07-11] MEDS: THIAMINE HCL 100 MG TABLET (FP) PO SCH (22:14)
[2020-07-11] MEDS: traZODone HCL 100 MG TABLET (FP) PO SCH (22:14)
[2020-07-11] MEDS: INSULIN (LEVEMIR) 100 UNITS/ML UNITS SQ SCH (22:17)
[2020-07-12] MEDS ORDERED: chlordiazePOXIDE HCL 10 MG CAPSULE PO ONE (05:00)
[2020-07-12] MEDS ORDERED: INSULIN (NOVOLOG) ASPART 100 UNITS/ML 10ML VIAL ONE ×2 (05:15→11:41)
[2020-07-12] MEDS: hydrOXYzine PAMOATE 25 MG CAPSULE (FP) PO SCH ×2 (06:11→09:59)
[2020-07-12] MEDS: INSULIN (NOVOLOG) ASPART 100 UNITS/ML 10ML VIAL SQ SCH ×2 (08:14→11:45)
[2020-07-12 09:52] VITALS: BP 115/61; PULSE 98; TEMP 97.3
[2020-07-12] MEDS: PRENATAL VITAMINS W/ FOLIC ACID TABLET (FP) PO SCH (09:59)
[2020-07-12] MEDS: HYDROCHLOROTHIAZIDE 25 MG TABLET (FP) PO SCH (09:59)
== END 2020-07-12 12:27 | disposition other institution (70) | DRG 775 ==
LOC: YASAS 10:46 → Y6N 12:16
PROVIDERS: ADMIT Allergy & Immunology; ATTEND Allergy & Immunology
PROC: HZ2ZZZZ Detoxification Services for Substance Abuse Treatment (ICD-10-PCS; principal; 2020-07-07)
DX: F10.230 Alcohol dependence with withdrawal, uncomplicated (principal); F17.213 Nicotine dependence, cigarettes, with withdrawal; F10.282 Alcohol dependence with alcohol-induced sleep disorder; F41.8 Other specified anxiety disorders; I10 Essential (primary) hypertension; E11.65 Type 2 diabetes mellitus with hyperglycemia; Z79.4 Long term (current) use of insulin; R76.8 Other specified abnormal immunological findings in serum; E66.9 Obesity, unspecified; Z68.39 Body mass index [BMI] 39.0-39.9, adult; Z86.19 Personal history of other infectious and parasitic diseases; Z88.0 Allergy status to penicillin; Z91.010 Allergy to peanuts; Z91.013 Allergy to seafood; Z56.0 Unemployment, unspecified; Z59.0 Homelessness
CPT/HCPCS: 36415; 80053; 82962; 85027; 86593; 86780; C9803; Q0162; U0003

== ENCOUNTER 2020-07-12 12:34 | Inpatient (IN) | payer OTHER ==
[2020-07-12] MEDS ORDERED: LOPERAMIDE HCL 2 MG CAPSULE PO PRN (13:20)
[2020-07-12] MEDS ORDERED: MENTHOL/PHENOL 1 EACH UD MM PRN (13:20)
[2020-07-12] MEDS ORDERED: ACETAMINOPHEN 325 MG TABLET (FP) PO PRN (13:20)
[2020-07-12] MEDS ORDERED: MAGNESIUM HYDROX 2400MG/30ML ORAL SUSPENSION 30 ML CUP PO PRN (13:20)
[2020-07-12] MEDS ORDERED: MAGNESIUM CITRATE 300 ML BOTTLE PO PRN (13:20)
[2020-07-12] MEDS ORDERED: guaiFENesin 200 MG/10 ML 10 ML UNIT-DOSE CUPS PO PRN (13:20)
[2020-07-12] MEDS ORDERED: MAG HYDROX/AL HYDROX/SIMETH 30 ML UNIT-DOSE CUP PO PRN (13:20)
[2020-07-12] MEDS ORDERED: P-EPHED 60MG/TRIPROLIDI 2.5MG TABLET PO PRN (13:20)
[2020-07-12] MEDS ORDERED: IBUPROFEN 400 MG TABLET (FP) PO PRN (13:20)
[2020-07-12] MEDS: INSULIN SLIDING SCALE (NOVOLOG) 1 VIAL SQ SCH ×2 (16:37→21:32)
[2020-07-12] MEDS: INSULIN (LEVEMIR) 100 UNITS/ML UNITS SQ SCH (21:32)
[2020-07-12] MEDS: THIAMINE HCL 100 MG TABLET (FP) PO SCH (21:32)
[2020-07-12] MEDS: traZODone HCL 100 MG TABLET (FP) PO SCH (21:32)
[2020-07-12] MEDS: MELATONIN 5 MG TABLETS PO SCH (21:32)
[2020-07-13] MEDS ORDERED: INSULIN (NOVOLOG) ASPART 100 UNITS/ML 10ML VIAL ONE ×2 (06:51→12:08)
[2020-07-13] MEDS: INSULIN SLIDING SCALE (NOVOLOG) 1 VIAL SQ SCH ×5 (06:52→21:18)
[2020-07-13] MEDS ORDERED: HYDROCHLOROTHIAZIDE 25 MG TABLET (FP) PO SCH (10:00)
[2020-07-13] MEDS: PRENATAL VITAMINS W/ FOLIC ACID TABLET (FP) PO SCH (10:05)
[2020-07-13] MEDS ORDERED: PT OWN MED DRAWER 7, Y5N ONE (10:38)
[2020-07-13] MEDS: THIAMINE HCL 100 MG TABLET (FP) PO SCH (21:14)
[2020-07-13] MEDS: traZODone HCL 100 MG TABLET (FP) PO SCH (21:14)
[2020-07-13] MEDS: METHOCARBAMOL 500 MG TABLET PO PRN (21:14)
[2020-07-13] MEDS: hydrOXYzine PAMOATE 25 MG CAPSULE (FP) PO PRN (21:14)
[2020-07-13] MEDS: MELATONIN 5 MG TABLETS PO SCH (21:14)
[2020-07-13] MEDS: INSULIN (LEVEMIR) 100 UNITS/ML UNITS SQ SCH (21:19)
[2020-07-14] MEDS: HYDROCHLOROTHIAZIDE 25 MG TABLET (FP) PO SCH (06:24)
[2020-07-14] MEDS ORDERED: INSULIN (NOVOLOG) ASPART 100 UNITS/ML 10ML VIAL ONE ×3 (06:25→22:01)
[2020-07-14] MEDS: INSULIN SLIDING SCALE (NOVOLOG) 1 VIAL SQ SCH ×4 (06:27→22:12)
[2020-07-14] MEDS: PRENATAL VITAMINS W/ FOLIC ACID TABLET (FP) PO SCH (10:53)
[2020-07-14] MEDS: THIAMINE HCL 100 MG TABLET (FP) PO SCH (21:22)
[2020-07-14] MEDS: traZODone HCL 100 MG TABLET (FP) PO SCH (21:22)
[2020-07-14] MEDS: MELATONIN 5 MG TABLETS PO SCH (21:22)
[2020-07-14] MEDS: INSULIN (LEVEMIR) 100 UNITS/ML UNITS SQ SCH (21:23)
[2020-07-15] MEDS ORDERED: INSULIN (NOVOLOG) ASPART 100 UNITS/ML 10ML VIAL ONE ×4 (06:45→21:01)
[2020-07-15] MEDS: INSULIN SLIDING SCALE (NOVOLOG) 1 VIAL SQ SCH ×4 (06:45→21:01)
[2020-07-15] MEDS: HYDROCHLOROTHIAZIDE 25 MG TABLET (FP) PO SCH (06:46)
[2020-07-15] MEDS: PRENATAL VITAMINS W/ FOLIC ACID TABLET (FP) PO SCH (10:05)
[2020-07-15] MEDS: MELATONIN 5 MG TABLETS PO SCH (20:59)
[2020-07-15] MEDS: traZODone HCL 100 MG TABLET (FP) PO SCH (20:59)
[2020-07-15] MEDS: INSULIN (LEVEMIR) 100 UNITS/ML UNITS SQ SCH (20:59)
[2020-07-15] MEDS: THIAMINE HCL 100 MG TABLET (FP) PO SCH (20:59)
[2020-07-16] MEDS: HYDROCHLOROTHIAZIDE 25 MG TABLET (FP) PO SCH (06:13)
[2020-07-16] MEDS: INSULIN SLIDING SCALE (NOVOLOG) 1 VIAL SQ SCH ×4 (06:15→21:47)
[2020-07-16] MEDS: PRENATAL VITAMINS W/ FOLIC ACID TABLET (FP) PO SCH (10:25)
[2020-07-16] MEDS: INSULIN (LEVEMIR) 100 UNITS/ML UNITS SQ SCH (21:47)
[2020-07-16] MEDS: THIAMINE HCL 100 MG TABLET (FP) PO SCH (21:49)
[2020-07-16] MEDS: MELATONIN 5 MG TABLETS PO SCH (21:49)
[2020-07-16] MEDS: traZODone HCL 100 MG TABLET (FP) PO SCH (21:49)
[2020-07-17] MEDS ORDERED: INSULIN (NOVOLOG) ASPART 100 UNITS/ML 10ML VIAL ONE (06:34)
[2020-07-17] MEDS: INSULIN SLIDING SCALE (NOVOLOG) 1 VIAL SQ SCH ×4 (06:55→21:37)
[2020-07-17] MEDS: HYDROCHLOROTHIAZIDE 25 MG TABLET (FP) PO SCH (06:55)
[2020-07-17] MEDS: PRENATAL VITAMINS W/ FOLIC ACID TABLET (FP) PO SCH (09:49)
[2020-07-17] MEDS: INSULIN (LEVEMIR) 100 UNITS/ML UNITS SQ SCH (21:36)
[2020-07-17] MEDS: THIAMINE HCL 100 MG TABLET (FP) PO SCH (21:38)
[2020-07-17] MEDS: MELATONIN 5 MG TABLETS PO SCH (21:38)
[2020-07-17] MEDS: traZODone HCL 100 MG TABLET (FP) PO SCH (21:39)
[2020-07-17] MEDS ORDERED: PT OWN MED DRAWER 7, Y5N ONE (22:13)
[2020-07-18] MEDS: HYDROCHLOROTHIAZIDE 25 MG TABLET (FP) PO SCH (07:39)
[2020-07-18] MEDS: INSULIN SLIDING SCALE (NOVOLOG) 1 VIAL SQ SCH ×4 (07:51→22:08)
[2020-07-18] MEDS: PRENATAL VITAMINS W/ FOLIC ACID TABLET (FP) PO SCH (10:33)
[2020-07-18] MEDS ORDERED: INSULIN (NOVOLOG) ASPART 100 UNITS/ML 10ML VIAL ONE (12:00)
[2020-07-18] MEDS: hydrOXYzine PAMOATE 25 MG CAPSULE (FP) PO PRN (21:55)
[2020-07-18] MEDS: THIAMINE HCL 100 MG TABLET (FP) PO SCH (21:55)
[2020-07-18] MEDS: METHOCARBAMOL 500 MG TABLET PO PRN (21:55)
[2020-07-18] MEDS: traZODone HCL 100 MG TABLET (FP) PO SCH (21:55)
[2020-07-18] MEDS: INSULIN (LEVEMIR) 100 UNITS/ML UNITS SQ SCH (21:56)
[2020-07-18] MEDS: MELATONIN 5 MG TABLETS PO SCH (21:56)
[2020-07-19] MEDS: HYDROCHLOROTHIAZIDE 25 MG TABLET (FP) PO SCH (07:44)
[2020-07-19] MEDS: INSULIN SLIDING SCALE (NOVOLOG) 1 VIAL SQ SCH ×4 (07:45→23:08)
[2020-07-19] MEDS ORDERED: INSULIN (NOVOLOG) ASPART 100 UNITS/ML 10ML VIAL ONE ×4 (07:47→22:18)
[2020-07-19] MEDS: PRENATAL VITAMINS W/ FOLIC ACID TABLET (FP) PO SCH (11:11)
[2020-07-19] MEDS: MELATONIN 5 MG TABLETS PO SCH (21:50)
[2020-07-19] MEDS: THIAMINE HCL 100 MG TABLET (FP) PO SCH (21:50)
[2020-07-19] MEDS: traZODone HCL 100 MG TABLET (FP) PO SCH (21:50)
[2020-07-19] MEDS: METHOCARBAMOL 500 MG TABLET PO PRN (21:51)
[2020-07-19] MEDS: hydrOXYzine PAMOATE 25 MG CAPSULE (FP) PO PRN (21:51)
[2020-07-19] MEDS: INSULIN (LEVEMIR) 100 UNITS/ML UNITS SQ SCH (21:52)
[2020-07-20 07:07] VITALS: BP 139/93; PULSE 102; TEMP 97.7
[2020-07-20] MEDS: HYDROCHLOROTHIAZIDE 25 MG TABLET (FP) PO SCH (07:20)
[2020-07-20] MEDS: INSULIN SLIDING SCALE (NOVOLOG) 1 VIAL SQ SCH ×4 (07:29→21:38)
[2020-07-20] MEDS ORDERED: INSULIN (NOVOLOG) ASPART 100 UNITS/ML 10ML VIAL ONE ×3 (07:29→21:44)
[2020-07-20] MEDS: PRENATAL VITAMINS W/ FOLIC ACID TABLET (FP) PO SCH (12:00)
[2020-07-20] MEDS: MELATONIN 5 MG TABLETS PO SCH (21:28)
[2020-07-20] MEDS: THIAMINE HCL 100 MG TABLET (FP) PO SCH (21:38)
[2020-07-20] MEDS: METHOCARBAMOL 500 MG TABLET PO PRN (21:38)
[2020-07-20] MEDS: traZODone HCL 100 MG TABLET (FP) PO SCH (21:38)
[2020-07-20] MEDS: INSULIN (LEVEMIR) 100 UNITS/ML UNITS SQ SCH (21:41)
[2020-07-21] MEDS: HYDROCHLOROTHIAZIDE 25 MG TABLET (FP) PO SCH (07:00)
[2020-07-21] MEDS: INSULIN SLIDING SCALE (NOVOLOG) 1 VIAL SQ SCH (07:04)
== END 2020-07-21 06:55 | disposition home or self-care (01) | DRG 772 ==
LOC: YASAS 12:34 → Y5N 12:35
PROVIDERS: ADMIT Allergy & Immunology; ATTEND Allergy & Immunology
PROC: HZ42ZZZ Group Counseling for Substance Abuse Treatment, Cognitive-Behavioral (ICD-10-PCS; principal; 2020-07-12)
DX: F10.20 Alcohol dependence, uncomplicated (principal); F14.20 Cocaine dependence, uncomplicated; F17.210 Nicotine dependence, cigarettes, uncomplicated; F32.9 Major depressive disorder, single episode, unspecified; F41.9 Anxiety disorder, unspecified; Z20.822 Contact with and (suspected) exposure to COVID-19; I10 Essential (primary) hypertension; E11.9 Type 2 diabetes mellitus without complications; Z79.4 Long term (current) use of insulin; Z88.0 Allergy status to penicillin; Z91.011 Allergy to milk products; Z91.013 Allergy to seafood
CPT/HCPCS: 82962; C9803; U0003

== ENCOUNTER 2020-08-20 15:14 | Inpatient (IN) | payer OTHER ==
[2020-08-20 18:23] VITALS: BMI 39.1
[2020-08-20] MEDS ORDERED: MAGNESIUM CITRATE 300 ML BOTTLE PO PRN (19:20)
[2020-08-20] MEDS ORDERED: ACETAMINOPHEN 325 MG TABLET (FP) PO PRN ×2 (19:20)
[2020-08-20] MEDS ORDERED: BISMUTH SUBSALICYLATE 524 MG/30 ML UD PO PRN (19:20)
[2020-08-20] MEDS ORDERED: ONDANSETRON *ODT* 4 MG TABLET SL PRN (19:20)
[2020-08-20] MEDS ORDERED: MAGNESIUM HYDROX 2400MG/30ML ORAL SUSPENSION 30 ML CUP PO PRN (19:20)
[2020-08-20] MEDS ORDERED: MAG HYDROX/AL HYDROX/SIMETH 30 ML UNIT-DOSE CUP PO PRN (19:20)
[2020-08-20] MEDS ORDERED: NICOTINE POLACRILEX 2 MG GUM BUC PRN (19:20)
[2020-08-20] MEDS ORDERED: MENTHOL/PHENOL 1 EACH UD MM PRN (19:20)
[2020-08-20] MEDS ORDERED: IBUPROFEN 400 MG TABLET (FP) PO PRN (19:20)
[2020-08-20] MEDS ORDERED: chlordiazePOXIDE HCL 25 MG CAPSULE PO PRN (19:20)
[2020-08-20] MEDS ORDERED: METHOCARBAMOL 500 MG TABLET PO PRN (19:20)
[2020-08-20] MEDS ORDERED: traZODone HCL 100 MG TABLET (FP) PO ONE ×2 (19:58→22:00)
[2020-08-20] MEDS: chlordiazePOXIDE HCL 25 MG CAPSULE PO SCH (22:45)
[2020-08-20] MEDS: THIAMINE HCL 100 MG TABLET (FP) PO SCH (22:45)
[2020-08-20] MEDS: MELATONIN 5 MG TABLETS PO SCH (22:46)
[2020-08-20] MEDS: hydrOXYzine PAMOATE 25 MG CAPSULE (FP) PO SCH (22:46)
[2020-08-20] MEDS: INSULIN (LEVEMIR) 100 UNITS/ML UNITS SQ SCH (22:49)
[2020-08-21] MEDS: chlordiazePOXIDE HCL 25 MG CAPSULE PO SCH ×5 (05:56→23:44)
[2020-08-21] MEDS: hydrOXYzine PAMOATE 25 MG CAPSULE (FP) PO SCH ×6 (05:57→23:43)
[2020-08-21] MEDS: Insulin (LOG) Aspart 100 UNITS/ML VIAL SQ SCH ×3 (08:03→16:50)
[2020-08-21] MEDS: PRENATAL VITAMINS W/ FOLIC ACID TABLET (FP) PO SCH (11:05)
[2020-08-21] MEDS: HYDROCHLOROTHIAZIDE 25 MG TABLET (FP) PO SCH (11:06)
[2020-08-21] MEDS ORDERED: INSULIN (NOVOLOG) ASPART 100 UNITS/ML 10ML VIAL ONE ×2 (11:11→17:17)
[2020-08-21 11:28] LABS: POTASSIUM 3.8 mmol/L (3.5-5.1)
[2020-08-21 11:31] LABS: CALCIUM 8.3 mg/dL (8.5-10.1)
[2020-08-21 11:32] LABS: ALBUMIN 3.1 g/dl (3.4-5.0); BLOOD UREA NITROGEN 13.9 mg/dL (7-18)
[2020-08-21 11:34] LABS: HEMATOCRIT 38.5 % (35.4-49); MCH 28.1 pg (25.7-33.7); MCHC 33.8 g/dl (32.0-35.9); MEAN CELL VOLUME 83.1 fl (80-96); MEAN PLT VOLUME 8.5 fl (7.5-11.1); PLATELET COUNT 204 K/MM3 (134-434); RBC 4.63 M/mm3 (4.00-5.60); RDW 14.2 % (11.9-15.9); WHITE BLOOD COUNT 5.1 K/mm3 (4.0-10.0)
[2020-08-21 11:37] LABS: BILIRUBIN,TOTAL 0.6 mg/dL (0.2-1); TOT PROT 6.2 g/dl (6.4-8.2)
[2020-08-21] MEDS: THIAMINE HCL 100 MG TABLET (FP) PO SCH ×2 (22:25→23:45)
[2020-08-21] MEDS: INSULIN (LEVEMIR) 100 UNITS/ML UNITS SQ SCH (22:26)
[2020-08-21] MEDS: MELATONIN 5 MG TABLETS PO SCH ×2 (22:26→23:45)
[2020-08-22] MEDS ORDERED: INSULIN (NOVOLOG) ASPART 100 UNITS/ML 10ML VIAL ONE ×3 (05:17→17:12)
[2020-08-22] MEDS: hydrOXYzine PAMOATE 25 MG CAPSULE (FP) PO SCH ×5 (06:07→22:36)
[2020-08-22] MEDS: chlordiazePOXIDE HCL 25 MG CAPSULE PO SCH ×4 (06:08→22:36)
[2020-08-22] MEDS: Insulin (LOG) Aspart 100 UNITS/ML VIAL SQ SCH ×3 (06:12→17:30)
[2020-08-22] MEDS: HYDROCHLOROTHIAZIDE 25 MG TABLET (FP) PO SCH (10:36)
[2020-08-22] MEDS: PRENATAL VITAMINS W/ FOLIC ACID TABLET (FP) PO SCH (10:36)
[2020-08-22] MEDS ORDERED: INSULIN (NOVOLOG) ASPART 100 UNITS/ML 10ML VIAL SQ ONE (17:09)
[2020-08-22] MEDS: INSULIN (LEVEMIR) 100 UNITS/ML UNITS SQ SCH (21:35)
[2020-08-22] MEDS: THIAMINE HCL 100 MG TABLET (FP) PO SCH (22:36)
[2020-08-22] MEDS: SUVOREXANT 10 MG TABLET PO PRN (22:40)
[2020-08-22] MEDS: MELATONIN 5 MG TABLETS PO SCH (22:40)
[2020-08-23] MEDS ORDERED: chlordiazePOXIDE HCL 10 MG CAPSULE PO PRN
[2020-08-23] MEDS: hydrOXYzine PAMOATE 25 MG CAPSULE (FP) PO SCH ×5 (07:08→22:27)
[2020-08-23] MEDS: chlordiazePOXIDE HCL 10 MG CAPSULE PO SCH ×4 (07:08→22:27)
[2020-08-23] MEDS ORDERED: INSULIN (NOVOLOG) ASPART 100 UNITS/ML 10ML VIAL ONE ×4 (07:10→22:23)
[2020-08-23] MEDS: Insulin (LOG) Aspart 100 UNITS/ML VIAL SQ SCH ×3 (07:19→17:00)
[2020-08-23] MEDS: HYDROCHLOROTHIAZIDE 25 MG TABLET (FP) PO SCH (10:56)
[2020-08-23] MEDS: PRENATAL VITAMINS W/ FOLIC ACID TABLET (FP) PO SCH (10:56)
[2020-08-23] MEDS: INSULIN SLIDING SCALE (NOVOLOG) 1 VIAL SQ SCH ×4 (11:16→23:35)
[2020-08-23] MEDS ORDERED: MASKS NR ONE (19:54)
[2020-08-23] MEDS: INSULIN (LEVEMIR) 100 UNITS/ML UNITS SQ SCH (22:25)
[2020-08-23] MEDS: SUVOREXANT 10 MG TABLET PO PRN (22:27)
[2020-08-23] MEDS: THIAMINE HCL 100 MG TABLET (FP) PO SCH (22:27)
[2020-08-23] MEDS: MELATONIN 5 MG TABLETS PO SCH (22:27)
[2020-08-24] MEDS: chlordiazePOXIDE HCL 10 MG CAPSULE PO SCH ×2 (06:23→18:10)
[2020-08-24] MEDS: hydrOXYzine PAMOATE 25 MG CAPSULE (FP) PO SCH ×5 (06:24→22:19)
[2020-08-24] MEDS: Insulin (LOG) Aspart 100 UNITS/ML VIAL SQ SCH ×3 (06:24→18:00)
[2020-08-24] MEDS: INSULIN SLIDING SCALE (NOVOLOG) 1 VIAL SQ SCH ×4 (06:29→22:19)
[2020-08-24] MEDS: HYDROCHLOROTHIAZIDE 25 MG TABLET (FP) PO SCH (10:06)
[2020-08-24] MEDS: PRENATAL VITAMINS W/ FOLIC ACID TABLET (FP) PO SCH (10:06)
[2020-08-24] MEDS ORDERED: cloNIDine HCL 0.1 MG TABLET PO PRN (10:59)
[2020-08-24] MEDS ORDERED: INSULIN (NOVOLOG) ASPART 100 UNITS/ML 10ML VIAL ONE ×3 (11:17→22:18)
[2020-08-24] MEDS: THIAMINE HCL 100 MG TABLET (FP) PO SCH (22:19)
[2020-08-24] MEDS: SUVOREXANT 10 MG TABLET PO PRN (22:19)
[2020-08-24] MEDS: MELATONIN 5 MG TABLETS PO SCH (22:20)
[2020-08-24] MEDS: INSULIN (LEVEMIR) 100 UNITS/ML UNITS SQ SCH (22:20)
[2020-08-25] MEDS ORDERED: chlordiazePOXIDE HCL 10 MG CAPSULE PO ONE (05:00)
[2020-08-25] MEDS: hydrOXYzine PAMOATE 25 MG CAPSULE (FP) PO SCH ×2 (07:45→10:42)
[2020-08-25 07:47] VITALS: BP 141/94; PULSE 88; TEMP 97.5
[2020-08-25] MEDS: PRENATAL VITAMINS W/ FOLIC ACID TABLET (FP) PO SCH (10:41)
[2020-08-25] MEDS: HYDROCHLOROTHIAZIDE 25 MG TABLET (FP) PO SCH (10:41)
== END 2020-08-25 11:00 | disposition home or self-care (01) | DRG 774 ==
LOC: YASAS 15:14 → Y6N 19:18
PROVIDERS: ADMIT Allergy & Immunology; ATTEND Allergy & Immunology
PROC: HZ2ZZZZ Detoxification Services for Substance Abuse Treatment (ICD-10-PCS; principal; 2020-08-20)
DX: F10.230 Alcohol dependence with withdrawal, uncomplicated (principal); F14.20 Cocaine dependence, uncomplicated; F17.210 Nicotine dependence, cigarettes, uncomplicated; F19.282 Other psychoactive substance dependence with psychoactive substance-induced sleep disorder; F19.24 Other psychoactive substance dependence with psychoactive substance-induced mood disorder; F41.8 Other specified anxiety disorders; E11.9 Type 2 diabetes mellitus without complications; Z79.4 Long term (current) use of insulin; I10 Essential (primary) hypertension; E66.9 Obesity, unspecified; Z68.39 Body mass index [BMI] 39.0-39.9, adult; Z86.19 Personal history of other infectious and parasitic diseases; Z88.0 Allergy status to penicillin; Z91.010 Allergy to peanuts; Z91.013 Allergy to seafood
CPT/HCPCS: 36415; 80053; 82962; 85027; 86593; 86780; C9803; U0003

== ENCOUNTER 2020-11-17 15:15 | Inpatient (IN) | payer OTHER ==
[2020-11-17 17:28] VITALS: BMI 33.9
[2020-11-17] MEDS ORDERED: ACETAMINOPHEN 325 MG TABLET (FP) PO PRN ×2 (17:31)
[2020-11-17] MEDS ORDERED: IBUPROFEN 400 MG TABLET (FP) PO PRN (17:31)
[2020-11-17] MEDS ORDERED: MENTHOL/PHENOL 1 EACH UD MM PRN (17:31)
[2020-11-17] MEDS ORDERED: MAGNESIUM CITRATE 300 ML BOTTLE PO PRN (17:31)
[2020-11-17] MEDS ORDERED: MAGNESIUM HYDROX 2400MG/30ML ORAL SUSPENSION 30 ML CUP PO PRN (17:31)
[2020-11-17] MEDS ORDERED: METHOCARBAMOL 500 MG TABLET PO PRN (17:31)
[2020-11-17] MEDS ORDERED: NICOTINE POLACRILEX 2 MG GUM BUC PRN (17:31)
[2020-11-17] MEDS ORDERED: MAG HYDROX/AL HYDROX/SIMETH 30 ML UNIT-DOSE CUP PO PRN (17:31)
[2020-11-17] MEDS ORDERED: LORazepam 1 MG TABLET PO PRN (17:31)
[2020-11-17] MEDS ORDERED: ONDANSETRON *ODT* 4 MG TABLET SL PRN (17:31)
[2020-11-17] MEDS ORDERED: BISMUTH SUBSALICYLATE 524 MG/30 ML PO PRN (17:31)
[2020-11-17] MEDS: hydrOXYzine PAMOATE 25 MG CAPSULE (FP) PO SCH ×2 (18:45→23:00)
[2020-11-17] MEDS ORDERED: Insulin (LOG) Aspart 100 UNITS/ML VIAL SQ ONE (19:30)
[2020-11-17] MEDS ORDERED: TRIMETHOBENZAMIDE HCL 200MG/2ML INJ IM ONE (19:30)
[2020-11-17] MEDS ORDERED: INSULIN (NOVOLOG) ASPART 100 UNITS/ML 10ML VIAL ONE ×2 (19:37→22:07)
[2020-11-17] MEDS: INSULIN (LEVEMIR) 100 UNITS/ML UNITS SQ SCH (22:59)
[2020-11-17] MEDS: INSULIN SLIDING SCALE (NOVOLOG) 1 VIAL SQ SCH (22:59)
[2020-11-17] MEDS: MELATONIN 5 MG TABLETS PO SCH (23:00)
[2020-11-17] MEDS: THIAMINE HCL 100 MG TABLET (FP) PO SCH (23:00)
[2020-11-17] MEDS: LORazepam 2 MG TABLET PO SCH (23:00)
[2020-11-18] MEDS: hydrOXYzine PAMOATE 25 MG CAPSULE (FP) PO SCH ×5 (06:57→22:44)
[2020-11-18] MEDS: LORazepam 2 MG TABLET PO SCH ×4 (06:57→22:45)
[2020-11-18] MEDS: INSULIN SLIDING SCALE (NOVOLOG) 1 VIAL SQ SCH ×4 (07:48→22:44)
[2020-11-18 10:16] LABS: HEMATOCRIT 42.5 % (35.4-49); HEMOGLOBIN 13.7 GM/dL (11.7-16.9); MCH 26.9 pg (25.7-33.7); MCHC 32.2 g/dl (32.0-35.9); MEAN CELL VOLUME 83.5 fl (80-96); MEAN PLT VOLUME 8.6 fl (7.5-11.1); PLATELET COUNT 188 10^3/uL (134-434); RBC 5.09 M/mm3 (4.00-5.60); RDW 14.3 % (11.9-15.9); WHITE BLOOD COUNT 4.7 K/mm3 (4.0-10.0)
[2020-11-18 10:17] LABS: BLOOD UREA NITROGEN 9.4 mg/dL (7-18)
[2020-11-18 10:19] LABS: ALBUMIN 3.3 g/dl (3.4-5.0); CREATININE 0.8 mg/dL (0.55-1.3)
[2020-11-18 10:20] LABS: CALCIUM 8.6 mg/dL (8.5-10.1)
[2020-11-18 10:21] LABS: BILIRUBIN,TOTAL 0.6 mg/dL (0.2-1); TOT PROT 6.2 g/dl (6.4-8.2)
[2020-11-18] MEDS: PRENATAL VITAMINS W/ FOLIC ACID TABLET (FP) PO SCH (11:45)
[2020-11-18] MEDS: HYDROCHLOROTHIAZIDE 25 MG TABLET (FP) PO SCH (11:45)
[2020-11-18] MEDS ORDERED: INSULIN (NOVOLOG) ASPART 100 UNITS/ML 10ML VIAL ONE ×2 (11:50→17:09)
[2020-11-18] MEDS ORDERED: Insulin (LOG) Aspart 100 UNITS/ML VIAL SQ ONE (19:30)
[2020-11-18] MEDS: INSULIN (LEVEMIR) 100 UNITS/ML UNITS SQ SCH (22:43)
[2020-11-18] MEDS: THIAMINE HCL 100 MG TABLET (FP) PO SCH (22:44)
[2020-11-18] MEDS: MELATONIN 5 MG TABLETS PO SCH (22:44)
[2020-11-19] MEDS: LORazepam 1 MG TABLET PO SCH ×4 (06:36→23:00)
[2020-11-19] MEDS: hydrOXYzine PAMOATE 25 MG CAPSULE (FP) PO SCH ×5 (06:36→23:23)
[2020-11-19] MEDS: INSULIN SLIDING SCALE (NOVOLOG) 1 VIAL SQ SCH ×4 (08:24→23:22)
[2020-11-19] MEDS: PRENATAL VITAMINS W/ FOLIC ACID TABLET (FP) PO SCH (12:56)
[2020-11-19] MEDS: HYDROCHLOROTHIAZIDE 25 MG TABLET (FP) PO SCH (12:57)
[2020-11-19] MEDS ORDERED: INSULIN (NOVOLOG) ASPART 100 UNITS/ML 10ML VIAL ONE ×2 (17:03→22:12)
[2020-11-19] MEDS: MELATONIN 5 MG TABLETS PO SCH (22:58)
[2020-11-19] MEDS: INSULIN (LEVEMIR) 100 UNITS/ML UNITS SQ SCH (23:22)
[2020-11-19] MEDS: THIAMINE HCL 100 MG TABLET (FP) PO SCH (23:23)
[2020-11-20] MEDS ORDERED: LORazepam 0.5 MG TABLET PO PRN
[2020-11-20] MEDS: hydrOXYzine PAMOATE 25 MG CAPSULE (FP) PO SCH ×6 (06:45→22:45)
[2020-11-20] MEDS: LORazepam 0.5 MG TABLET PO SCH ×5 (06:45→22:10)
[2020-11-20] MEDS: INSULIN SLIDING SCALE (NOVOLOG) 1 VIAL SQ SCH ×4 (06:51→22:15)
[2020-11-20] MEDS: HYDROCHLOROTHIAZIDE 25 MG TABLET (FP) PO SCH (11:10)
[2020-11-20] MEDS: PRENATAL VITAMINS W/ FOLIC ACID TABLET (FP) PO SCH (11:10)
[2020-11-20] MEDS ORDERED: INSULIN (NOVOLOG) ASPART 100 UNITS/ML 10ML VIAL ONE ×2 (17:12→21:23)
[2020-11-20] MEDS: THIAMINE HCL 100 MG TABLET (FP) PO SCH (22:11)
[2020-11-20] MEDS: INSULIN (LEVEMIR) 100 UNITS/ML UNITS SQ SCH (22:11)
[2020-11-20] MEDS: MELATONIN 5 MG TABLETS PO SCH (22:11)
[2020-11-21] MEDS ORDERED: LORazepam 0.5 MG TABLET PO ONE (05:00)
[2020-11-21] MEDS: hydrOXYzine PAMOATE 25 MG CAPSULE (FP) PO SCH (06:14)
[2020-11-21 06:23] VITALS: BP 130/88; PULSE 84; TEMP 96.6
[2020-11-21] MEDS: INSULIN SLIDING SCALE (NOVOLOG) 1 VIAL SQ SCH (08:46)
== END 2020-11-21 09:03 | disposition home or self-care (01) | DRG 774 ==
LOC: YASAS 15:15 → Y6N 17:37
PROVIDERS: ADMIT Allergy & Immunology; ATTEND Allergy & Immunology
PROC: HZ2ZZZZ Detoxification Services for Substance Abuse Treatment (ICD-10-PCS; principal; 2020-11-17)
DX: F10.230 Alcohol dependence with withdrawal, uncomplicated (principal); F14.20 Cocaine dependence, uncomplicated; F17.210 Nicotine dependence, cigarettes, uncomplicated; F41.8 Other specified anxiety disorders; I10 Essential (primary) hypertension; E10.9 Type 1 diabetes mellitus without complications; Z79.4 Long term (current) use of insulin; Z86.19 Personal history of other infectious and parasitic diseases; Z88.0 Allergy status to penicillin; Z91.010 Allergy to peanuts; Z91.013 Allergy to seafood
CPT/HCPCS: 36415; 80053; 82962; 85027; 86593; 86780; C9803; Q0162; U0003; U0005

== ENCOUNTER 2021-01-06 12:38 | Inpatient (IN) | payer OTHER ==
[2021-01-06 14:32] VITALS: BMI 39.4
[2021-01-06] MEDS ORDERED: ACETAMINOPHEN 325 MG TABLET (FP) PO PRN ×2 (15:00)
[2021-01-06] MEDS ORDERED: MAG HYDROX/AL HYDROX/SIMETH 30 ML UNIT-DOSE CUP PO PRN (15:00)
[2021-01-06] MEDS ORDERED: MAGNESIUM HYDROX 2400MG/30ML ORAL SUSPENSION 30 ML CUP PO PRN (15:00)
[2021-01-06] MEDS ORDERED: MAGNESIUM CITRATE 300 ML BOTTLE PO PRN (15:00)
[2021-01-06] MEDS ORDERED: BISMUTH SUBSALICYLATE 524 MG/30 ML PO PRN (15:00)
[2021-01-06] MEDS ORDERED: ONDANSETRON *ODT* 4 MG TABLET SL PRN (15:00)
[2021-01-06] MEDS ORDERED: MENTHOL/PHENOL 1 EACH UD MM PRN (15:00)
[2021-01-06] MEDS ORDERED: diazePAM 5 MG TABLET PO PRN (15:02)
[2021-01-06] MEDS ORDERED: diazePAM 5 MG TABLET PO ONE (15:02)
[2021-01-06] MEDS: INSULIN SLIDING SCALE (NOVOLOG) 1 VIAL SQ SCH ×3 (19:38→22:53)
[2021-01-06] MEDS: diazePAM 5 MG TABLET PO SCH ×2 (19:43→22:51)
[2021-01-06] MEDS: THIAMINE HCL 100 MG TABLET (FP) PO SCH (22:51)
[2021-01-06] MEDS: hydrOXYzine PAMOATE 25 MG CAPSULE (FP) PO PRN (22:51)
[2021-01-06] MEDS: MELATONIN 5 MG TABLETS PO SCH (22:53)
[2021-01-07] MEDS: INSULIN SLIDING SCALE (NOVOLOG) 1 VIAL SQ SCH ×4 (06:30→22:14)
[2021-01-07] MEDS: diazePAM 5 MG TABLET PO SCH ×4 (06:30→22:08)
[2021-01-07 08:59] LABS: HEMATOCRIT 39.5 % (35.4-49); HEMOGLOBIN 13.4 GM/dL (11.7-16.9); MCH 28.2 pg (25.7-33.7); MEAN CELL VOLUME 82.7 fl (80-96); MEAN PLT VOLUME 8.6 fl (7.5-11.1); PLATELET COUNT 183 10^3/uL (134-434); RBC 4.77 M/mm3 (4.00-5.60); RDW 14.3 % (11.9-15.9); WHITE BLOOD COUNT 4.7 K/mm3 (4.0-10.0)
[2021-01-07 09:26] LABS: CALCIUM 8.2 mg/dL (8.5-10.1)
[2021-01-07 09:27] LABS: ALBUMIN 3.3 g/dl (3.4-5.0); BLOOD UREA NITROGEN 13.2 mg/dL (7-18)
[2021-01-07 09:29] LABS: BILIRUBIN,TOTAL 0.8 mg/dL (0.2-1)
[2021-01-07 09:30] LABS: CREATININE 0.9 mg/dL (0.55-1.3); TOT PROT 6.2 g/dl (6.4-8.2)
[2021-01-07] MEDS: PRENATAL VITAMINS W/ FOLIC ACID TABLET (FP) PO SCH (11:00)
[2021-01-07] MEDS: HYDROCHLOROTHIAZIDE 25 MG TABLET (FP) PO SCH (11:00)
[2021-01-07] MEDS: METHOCARBAMOL 500 MG TABLET PO PRN (18:02)
[2021-01-07] MEDS ORDERED: cloNIDine HCL 0.1 MG TABLET PO ONE (21:49)
[2021-01-07] MEDS ORDERED: cloNIDine HCL 0.1 MG TABLET PO PRN (21:50)
[2021-01-07] MEDS: THIAMINE HCL 100 MG TABLET (FP) PO SCH (22:07)
[2021-01-07] MEDS: MELATONIN 5 MG TABLETS PO SCH (22:07)
[2021-01-07] MEDS: traZODone HCL 50 MG TABLET (FP) PO SCH (22:07)
[2021-01-08] MEDS: diazePAM 5 MG TABLET PO SCH ×3 (06:28→23:16)
[2021-01-08] MEDS: METHOCARBAMOL 500 MG TABLET PO PRN (06:28)
[2021-01-08] MEDS: INSULIN SLIDING SCALE (NOVOLOG) 1 VIAL SQ SCH ×4 (06:29→23:16)
[2021-01-08] MEDS: PRENATAL VITAMINS W/ FOLIC ACID TABLET (FP) PO SCH (10:37)
[2021-01-08] MEDS: HYDROCHLOROTHIAZIDE 25 MG TABLET (FP) PO SCH (10:38)
[2021-01-08] MEDS: hydrOXYzine PAMOATE 25 MG CAPSULE (FP) PO PRN (10:38)
[2021-01-08] MEDS: IBUPROFEN 400 MG TABLET (FP) PO PRN (10:40)
[2021-01-08] MEDS ORDERED: INSULIN SLIDING SCALE (NOVOLOG) 1 VIAL SQ ONE (12:16)
[2021-01-08] MEDS: MELATONIN 5 MG TABLETS PO SCH (23:15)
[2021-01-08] MEDS: traZODone HCL 50 MG TABLET (FP) PO SCH (23:15)
[2021-01-08] MEDS: THIAMINE HCL 100 MG TABLET (FP) PO SCH (23:17)
[2021-01-09] MEDS: diazePAM 5 MG TABLET PO SCH ×2 (05:18→18:31)
[2021-01-09] MEDS: IBUPROFEN 400 MG TABLET (FP) PO PRN (05:19)
[2021-01-09] MEDS: INSULIN SLIDING SCALE (NOVOLOG) 1 VIAL SQ SCH ×4 (06:38→22:13)
[2021-01-09] MEDS: HYDROCHLOROTHIAZIDE 25 MG TABLET (FP) PO SCH (10:52)
[2021-01-09] MEDS: PRENATAL VITAMINS W/ FOLIC ACID TABLET (FP) PO SCH (10:52)
[2021-01-09] MEDS: METHOCARBAMOL 500 MG TABLET PO PRN ×2 (15:14→23:18)
[2021-01-09 18:37] VITALS: BP 147/99; PULSE 94; TEMP 96.4
[2021-01-09] MEDS: THIAMINE HCL 100 MG TABLET (FP) PO SCH (22:07)
[2021-01-09] MEDS: traZODone HCL 50 MG TABLET (FP) PO SCH ×3 (22:07→23:12)
[2021-01-09] MEDS: MELATONIN 5 MG TABLETS PO SCH ×2 (22:07→22:15)
[2021-01-10] MEDS ORDERED: diazePAM 5 MG TABLET PO ONE (06:00)
[2021-01-10] MEDS: METHOCARBAMOL 500 MG TABLET PO PRN (06:15)
[2021-01-10] MEDS: INSULIN SLIDING SCALE (NOVOLOG) 1 VIAL SQ SCH (06:48)
== END 2021-01-10 07:00 | disposition home or self-care (01) | DRG 774 ==
LOC: YASAS 12:38 → Y3N 18:12
PROVIDERS: ADMIT Allergy & Immunology; ATTEND Allergy & Immunology
PROC: HZ2ZZZZ Detoxification Services for Substance Abuse Treatment (ICD-10-PCS; principal; 2021-01-06)
DX: F10.230 Alcohol dependence with withdrawal, uncomplicated (principal); F10.220 Alcohol dependence with intoxication, uncomplicated; F14.20 Cocaine dependence, uncomplicated; F17.210 Nicotine dependence, cigarettes, uncomplicated; F19.24 Other psychoactive substance dependence with psychoactive substance-induced mood disorder; F19.282 Other psychoactive substance dependence with psychoactive substance-induced sleep disorder; I10 Essential (primary) hypertension; E11.9 Type 2 diabetes mellitus without complications; G47.00 Insomnia, unspecified; E66.9 Obesity, unspecified; Z68.39 Body mass index [BMI] 39.0-39.9, adult; Z91.010 Allergy to peanuts; Z91.013 Allergy to seafood; Z88.0 Allergy status to penicillin; Z79.4 Long term (current) use of insulin; Z86.19 Personal history of other infectious and parasitic diseases; Z56.0 Unemployment, unspecified; Z59.0 Homelessness
CPT/HCPCS: 36415; 80053; 82962; 85027; 86593; 86780; C9803; J0735; U0003; U0005

== ENCOUNTER 2021-01-25 12:22 | Inpatient (IN) | payer OTHER ==
[2021-01-25 13:54] VITALS: BMI 38.2
[2021-01-25] MEDS ORDERED: ONDANSETRON *ODT* 4 MG TABLET SL PRN (15:43)
[2021-01-25] MEDS ORDERED: ACETAMINOPHEN 325 MG TABLET (FP) PO PRN ×2 (15:43)
[2021-01-25] MEDS ORDERED: BISMUTH SUBSALICYLATE 524 MG/30 ML PO PRN (15:43)
[2021-01-25] MEDS ORDERED: MAG HYDROX/AL HYDROX/SIMETH 30 ML UNIT-DOSE CUP PO PRN (15:43)
[2021-01-25] MEDS ORDERED: IBUPROFEN 400 MG TABLET (FP) PO PRN (15:43)
[2021-01-25] MEDS ORDERED: MAGNESIUM HYDROX 2400MG/30ML ORAL SUSPENSION 30 ML CUP PO PRN (15:43)
[2021-01-25] MEDS ORDERED: MAGNESIUM CITRATE 300 ML BOTTLE PO PRN (15:43)
[2021-01-25] MEDS ORDERED: METHOCARBAMOL 500 MG TABLET PO PRN (15:43)
[2021-01-25] MEDS ORDERED: diazePAM 5 MG TABLET PO PRN (15:43)
[2021-01-25] MEDS ORDERED: MENTHOL/PHENOL 1 EACH UD MM PRN (15:43)
[2021-01-25] MEDS: diazePAM 5 MG TABLET PO SCH ×2 (17:14→22:35)
[2021-01-25] MEDS: hydrOXYzine PAMOATE 25 MG CAPSULE (FP) PO SCH ×2 (17:15→22:35)
[2021-01-25] MEDS: INSULIN SLIDING SCALE (NOVOLOG) 1 VIAL SQ SCH (17:18)
[2021-01-25] MEDS: MELATONIN 5 MG TABLETS PO SCH (22:35)
[2021-01-25] MEDS: THIAMINE HCL 100 MG TABLET (FP) PO SCH (22:38)
[2021-01-25] MEDS: INSULIN (LEVEMIR) 100 UNITS/ML UNITS SQ SCH (23:22)
[2021-01-26] MEDS: hydrOXYzine PAMOATE 25 MG CAPSULE (FP) PO SCH ×3 (06:14→11:24)
[2021-01-26] MEDS: INSULIN SLIDING SCALE (NOVOLOG) 1 VIAL SQ SCH ×3 (06:14→16:32)
[2021-01-26] MEDS: diazePAM 5 MG TABLET PO SCH ×4 (06:31→22:21)
[2021-01-26] MEDS ORDERED: INSULIN SLIDING SCALE (NOVOLOG) 1 VIAL SQ ONE (06:44)
[2021-01-26 10:52] LABS: HEMATOCRIT 40.7 % (35.4-49); HEMOGLOBIN 13.5 GM/dL (11.7-16.9); MCH 27.8 pg (25.7-33.7); MCHC 33.2 g/dl (32.0-35.9); MEAN CELL VOLUME 83.7 fl (80-96); MEAN PLT VOLUME 9.4 fl (7.5-11.1); PLATELET COUNT 171 10^3/uL (134-434); RBC 4.86 M/mm3 (4.00-5.60); WHITE BLOOD COUNT 3.9 K/mm3 (4.0-10.0)
[2021-01-26 10:53] LABS: CHLORIDE 101 mmol/L (98-107); SODIUM 134 mmol/L (136-145)
[2021-01-26 10:57] LABS: ALBUMIN 3.9 g/dl (3.4-5.0); ANION GAP 12 MMOL/L (8-16); CALCIUM 8.7 mg/dL (8.5-10.1); CO2 20 mmol/L (21-32)
[2021-01-26 11:00] LABS: CREATININE 1.5 mg/dL (0.55-1.3); SGOT/AST 13 U/L (15-37); SGPT/ALT 29 U/L (13-61)
[2021-01-26 11:02] LABS: TOT PROT 7.5 g/dl (6.4-8.2)
[2021-01-26 11:04] LABS: BILIRUBIN,TOTAL 0.7 mg/dL (0.2-1)
[2021-01-26 11:07] LABS: ALK PHOS 124 U/L (45-117); GLUCOSE,RANDOM 404 mg/dL (74-106)
[2021-01-26] MEDS: PRENATAL VITAMINS W/ FOLIC ACID TABLET (FP) PO SCH (11:28)
[2021-01-26] MEDS ORDERED: hydrOXYzine PAMOATE 25 MG CAPSULE (FP) PO PRN (12:00)
[2021-01-26] MEDS ORDERED: traZODone HCL 100 MG TABLET (FP) PO SCH (22:00)
[2021-01-26] MEDS: INSULIN (LEVEMIR) 100 UNITS/ML UNITS SQ SCH (22:22)
[2021-01-26] MEDS: MELATONIN 5 MG TABLETS PO SCH (22:22)
[2021-01-26] MEDS: THIAMINE HCL 100 MG TABLET (FP) PO SCH (22:22)
[2021-01-27] MEDS: diazePAM 5 MG TABLET PO SCH ×2 (07:51→13:27)
[2021-01-27] MEDS: INSULIN SLIDING SCALE (NOVOLOG) 1 VIAL SQ SCH ×2 (07:52→11:59)
[2021-01-27] MEDS ORDERED: HYDROCHLOROTHIAZIDE 25 MG TABLET (FP) PO SCH (10:00)
[2021-01-27 10:01] VITALS: BP 144/88; PULSE 80; TEMP 97.4
[2021-01-27] MEDS: PRENATAL VITAMINS W/ FOLIC ACID TABLET (FP) PO SCH (10:14)
[2021-01-28] MEDS ORDERED: diazePAM 5 MG TABLET PO SCH (06:00)
[2021-01-29] MEDS ORDERED: diazePAM 5 MG TABLET PO ONE (06:00)
== END 2021-01-27 13:15 | disposition left against medical advice (07) | DRG 770 ==
LOC: YASAS 12:22 → Y3N 16:00
PROVIDERS: ADMIT Allergy & Immunology; ATTEND Allergy & Immunology
PROC: HZ2ZZZZ Detoxification Services for Substance Abuse Treatment (ICD-10-PCS; principal; 2021-01-25)
DX: F10.230 Alcohol dependence with withdrawal, uncomplicated (principal); F17.210 Nicotine dependence, cigarettes, uncomplicated; F19.282 Other psychoactive substance dependence with psychoactive substance-induced sleep disorder; F10.280 Alcohol dependence with alcohol-induced anxiety disorder; F19.24 Other psychoactive substance dependence with psychoactive substance-induced mood disorder; F41.8 Other specified anxiety disorders; I10 Essential (primary) hypertension; E11.9 Type 2 diabetes mellitus without complications; G47.00 Insomnia, unspecified; R74.8 Abnormal levels of other serum enzymes; E66.9 Obesity, unspecified; Z68.38 Body mass index [BMI] 38.0-38.9, adult; Z79.4 Long term (current) use of insulin; Z88.0 Allergy status to penicillin; Z91.013 Allergy to seafood; Z91.010 Allergy to peanuts
CPT/HCPCS: 36415; 80053; 82962; 83036; 85027; 86593; 86780; C9803; U0003; U0005

== ENCOUNTER 2021-03-16 17:18 | Inpatient (IN) | payer OTHER ==
[2021-03-16 18:20] VITALS: BMI 39.4
[2021-03-16] MEDS ORDERED: MENTHOL/PHENOL 1 EACH UD MM PRN (19:45)
[2021-03-16] MEDS ORDERED: NICOTINE 10 MG CARTRIDGE (INHALER) IH PRN (19:45)
[2021-03-16] MEDS ORDERED: MAG HYDROX/AL HYDROX/SIMETH 30 ML UNIT-DOSE CUP PO PRN (19:45)
[2021-03-16] MEDS ORDERED: ACETAMINOPHEN 325 MG TABLET (FP) PO PRN ×2 (19:45)
[2021-03-16] MEDS ORDERED: MAGNESIUM HYDROX 2400MG/30ML ORAL SUSPENSION 30 ML CUP PO PRN (19:45)
[2021-03-16] MEDS ORDERED: BISMUTH SUBSALICYLATE 524 MG/30 ML PO PRN (19:45)
[2021-03-16] MEDS ORDERED: MAGNESIUM CITRATE 300 ML BOTTLE PO PRN (19:45)
[2021-03-16] MEDS ORDERED: ONDANSETRON *ODT* 4 MG TABLET SL PRN (19:45)
[2021-03-17] MEDS ORDERED: hydrOXYzine PAMOATE 25 MG CAPSULE (FP) PO ONE ×3 (00:21→10:44)
[2021-03-17] MEDS: IBUPROFEN 400 MG TABLET (FP) PO PRN ×3 (00:30→20:15)
[2021-03-17] MEDS: hydrOXYzine PAMOATE 25 MG CAPSULE (FP) PO SCH ×6 (00:30→21:57)
[2021-03-17] MEDS ORDERED: IBUPROFEN 400 MG TABLET (FP) PO ONE (00:30)
[2021-03-17] MEDS: MELATONIN 5 MG TABLETS PO SCH ×2 (00:30→21:57)
[2021-03-17] MEDS: THIAMINE HCL 100 MG TABLET (FP) PO SCH ×2 (00:30→21:57)
[2021-03-17] MEDS ORDERED: diazePAM 5 MG TABLET ONE ×3 (00:38→10:43)
[2021-03-17] MEDS: diazePAM 5 MG TABLET PO SCH ×5 (00:40→22:00)
[2021-03-17 10:26] LABS: HEMATOCRIT 40.8 % (35.4-49); HEMOGLOBIN 13.8 GM/dL (11.7-16.9); MCH 27.8 pg (25.7-33.7); MCHC 33.8 g/dl (32.0-35.9); MEAN CELL VOLUME 82.3 fl (80-96); MEAN PLT VOLUME 8.4 fl (7.5-11.1); PLATELET COUNT 171 10^3/uL (134-434); RBC 4.96 M/mm3 (4.00-5.60); RDW 13.7 % (11.9-15.9)
[2021-03-17] MEDS: PRENATAL VITAMINS W/ FOLIC ACID TABLET (FP) PO SCH (10:47)
[2021-03-17 12:21] LABS: ALBUMIN 3.3 g/dl (3.4-5.0); CALCIUM 8.6 mg/dL (8.5-10.1)
[2021-03-17 12:22] LABS: BLOOD UREA NITROGEN 11.6 mg/dL (7-18)
[2021-03-17 12:25] LABS: CREATININE 0.8 mg/dL (0.55-1.3)
[2021-03-17 12:27] LABS: TOT PROT 6.5 g/dl (6.4-8.2)
[2021-03-17] MEDS: METHOCARBAMOL 500 MG TABLET PO PRN ×2 (13:07→20:57)
[2021-03-17] MEDS: diazePAM 5 MG TABLET PO PRN (20:14)
[2021-03-17] MEDS: traZODone HCL 50 MG TABLET (FP) PO SCH (21:57)
[2021-03-18] MEDS: hydrOXYzine PAMOATE 25 MG CAPSULE (FP) PO SCH ×5 (07:08→22:17)
[2021-03-18] MEDS: diazePAM 5 MG TABLET PO SCH ×3 (07:08→22:19)
[2021-03-18] MEDS: PRENATAL VITAMINS W/ FOLIC ACID TABLET (FP) PO SCH (10:53)
[2021-03-18] MEDS: IBUPROFEN 400 MG TABLET (FP) PO PRN ×2 (14:03→22:18)
[2021-03-18] MEDS: MELATONIN 5 MG TABLETS PO SCH (22:16)
[2021-03-18] MEDS: THIAMINE HCL 100 MG TABLET (FP) PO SCH (22:16)
[2021-03-18] MEDS: traZODone HCL 50 MG TABLET (FP) PO SCH (22:16)
[2021-03-18 22:37] VITALS: TEMP 97.4
[2021-03-19] MEDS: diazePAM 5 MG TABLET PO SCH ×2 (06:20→18:29)
[2021-03-19] MEDS: hydrOXYzine PAMOATE 25 MG CAPSULE (FP) PO SCH ×5 (06:20→22:29)
[2021-03-19] MEDS: IBUPROFEN 400 MG TABLET (FP) PO PRN ×2 (06:58→22:30)
[2021-03-19] MEDS: diazePAM 5 MG TABLET PO PRN (08:49)
[2021-03-19] MEDS: PRENATAL VITAMINS W/ FOLIC ACID TABLET (FP) PO SCH (10:59)
[2021-03-19] MEDS: THIAMINE HCL 100 MG TABLET (FP) PO SCH (22:29)
[2021-03-19] MEDS: MELATONIN 5 MG TABLETS PO SCH (22:29)
[2021-03-19] MEDS: traZODone HCL 50 MG TABLET (FP) PO SCH (22:29)
[2021-03-20] MEDS ORDERED: diazePAM 5 MG TABLET PO ONE (06:00)
[2021-03-20] MEDS: hydrOXYzine PAMOATE 25 MG CAPSULE (FP) PO SCH ×3 (06:42→14:05)
[2021-03-20] MEDS: PRENATAL VITAMINS W/ FOLIC ACID TABLET (FP) PO SCH (11:17)
[2021-03-20 12:52] VITALS: BP 145/87; PULSE 93
== END 2021-03-20 15:00 | disposition home or self-care (01) | DRG 774 ==
LOC: YASAS 17:18 → Y3N 03-17 11:35
PROVIDERS: ADMIT Allergy & Immunology; ATTEND Allergy & Immunology
PROC: HZ2ZZZZ Detoxification Services for Substance Abuse Treatment (ICD-10-PCS; principal; 2021-03-17)
DX: F10.230 Alcohol dependence with withdrawal, uncomplicated (principal); F14.20 Cocaine dependence, uncomplicated; F17.210 Nicotine dependence, cigarettes, uncomplicated; F19.24 Other psychoactive substance dependence with psychoactive substance-induced mood disorder; I10 Essential (primary) hypertension; E11.9 Type 2 diabetes mellitus without complications; G47.00 Insomnia, unspecified; E66.9 Obesity, unspecified; Z68.39 Body mass index [BMI] 39.0-39.9, adult; Z88.0 Allergy status to penicillin; Z91.010 Allergy to peanuts; Z91.013 Allergy to seafood; Z86.19 Personal history of other infectious and parasitic diseases; Z56.0 Unemployment, unspecified; Z59.00 Homelessness unspecified
CPT/HCPCS: 36415; 80053; 85027; 86593; 86780; C9803; U0003; U0005

== ENCOUNTER 2022-02-23 15:35 | Inpatient (IN) | payer OTHER ==
[2022-02-23 19:36] VITALS: BMI 38.2
[2022-02-23] MEDS ORDERED: NALOXONE HCL (KLOXXADO) 8 MG SPRAY NS PRN (19:51)
[2022-02-23] MEDS ORDERED: METHOCARBAMOL 500 MG TABLET PO PRN (19:51)
[2022-02-23] MEDS ORDERED: DICYCLOMINE HCL 10 MG CAPSULE PO PRN (19:51)
[2022-02-23] MEDS ORDERED: LOPERAMIDE HCL 2 MG CAPSULE PO PRN (19:51)
[2022-02-23] MEDS ORDERED: MAG HYDROX/AL HYDROX/SIMETH 30 ML UNIT-DOSE CUP PO PRN (19:51)
[2022-02-23] MEDS ORDERED: MAGNESIUM HYDROX 2400MG/30ML ORAL SUSPENSION 30 ML CUP PO PRN (19:51)
[2022-02-23] MEDS ORDERED: IBUPROFEN 400 MG TABLET (FP) PO PRN (19:51)
[2022-02-23] MEDS ORDERED: ACETAMINOPHEN 325 MG TABLET (FP) PO PRN ×2 (19:51)
[2022-02-23] MEDS ORDERED: IBUPROFEN 600 MG TABLET (FP) PO PRN (19:51)
[2022-02-23] MEDS ORDERED: NICOTINE 10 MG CARTRIDGE (INHALER) IH PRN (19:51)
[2022-02-23] MEDS ORDERED: ONDANSETRON *ODT* 4 MG TABLET SL PRN (19:51)
[2022-02-23] MEDS ORDERED: BISMUTH SUBSALICYLATE 524 MG/30 ML PO PRN (19:51)
[2022-02-23] MEDS ORDERED: BENZOCAINE/MENTHOL (CHLORASEPTIC ) LOZENGE MM PRN (19:51)
[2022-02-23] MEDS ORDERED: chlordiazePOXIDE HCL 25 MG CAPSULE PO PRN (19:51)
[2022-02-23] MEDS ORDERED: MAGNESIUM CITRATE 300 ML BOTTLE PO PRN (19:51)
[2022-02-23] MEDS ORDERED: traZODone HCL 50 MG TABLET (FP) PO ONE (22:00)
[2022-02-23] MEDS: MELATONIN 5 MG TABLETS PO SCH (22:16)
[2022-02-23] MEDS: chlordiazePOXIDE HCL 25 MG CAPSULE PO SCH (22:16)
[2022-02-23] MEDS: THIAMINE HCL 100 MG TABLET (FP) PO SCH (22:16)
[2022-02-23] MEDS: hydrOXYzine PAMOATE 25 MG CAPSULE (FP) PO SCH (22:16)
[2022-02-24] MEDS: chlordiazePOXIDE HCL 25 MG CAPSULE PO SCH ×4 (05:31→22:33)
[2022-02-24] MEDS: hydrOXYzine PAMOATE 25 MG CAPSULE (FP) PO SCH ×5 (05:31→22:33)
[2022-02-24] MEDS ORDERED: INSULIN SLIDING SCALE (NOVOLOG) 1 VIAL SQ SCH ×2 (07:00)
[2022-02-24] MEDS: NICOTINE 7 MG/24 HOURS TOPICAL PATCH TD SCH (10:24)
[2022-02-24] MEDS: PRENATAL VITAMINS W/ FOLIC ACID TABLET (FP) PO SCH (10:24)
[2022-02-24 11:34] LABS: HEMATOCRIT 42.7 % (35.4-49); HEMOGLOBIN 14.1 GM/dL (11.7-16.9); MCH 27.7 pg (25.7-33.7); MEAN CELL VOLUME 83.8 fl (80-96); MEAN PLT VOLUME 8.8 fl (7.5-11.1); PLATELET COUNT 188 10^3/uL (134-434); RDW 13.4 % (11.9-15.9); WHITE BLOOD COUNT 4.5 K/mm3 (4.0-10.0)
[2022-02-24 11:35] LABS: CALCIUM 8.6 mg/dL (8.5-10.1)
[2022-02-24 11:36] LABS: ALBUMIN 3.4 g/dl (3.4-5.0); BLOOD UREA NITROGEN 17.8 mg/dL (7-18)
[2022-02-24 11:40] LABS: BILIRUBIN,TOTAL 0.6 mg/dL (0.2-1); TOT PROT 6.3 g/dl (6.4-8.2)
[2022-02-24] MEDS: INSULIN SLIDING SCALE (NOVOLOG) 1 VIAL SQ SCH ×3 (11:48→22:32)
[2022-02-24] MEDS: MELATONIN 5 MG TABLETS PO SCH (22:32)
[2022-02-24] MEDS: THIAMINE HCL 100 MG TABLET (FP) PO SCH (22:44)
[2022-02-24] MEDS ORDERED: traZODone HCL 50 MG TABLET (FP) PO ONE (23:24)
[2022-02-25] MEDS: hydrOXYzine PAMOATE 25 MG CAPSULE (FP) PO SCH ×5 (05:21→22:43)
[2022-02-25] MEDS: chlordiazePOXIDE HCL 25 MG CAPSULE PO SCH ×4 (05:21→22:10)
[2022-02-25] MEDS: INSULIN SLIDING SCALE (NOVOLOG) 1 VIAL SQ SCH ×4 (08:33→22:10)
[2022-02-25] MEDS: NICOTINE 7 MG/24 HOURS TOPICAL PATCH TD SCH (10:21)
[2022-02-25] MEDS: PRENATAL VITAMINS W/ FOLIC ACID TABLET (FP) PO SCH (10:21)
[2022-02-25] MEDS: amLODIPine BESYLATE 5 MG TABLET (FP) PO SCH (13:42)
[2022-02-25 21:13] VITALS: RESP 18
[2022-02-25] MEDS ORDERED: traZODone HCL 50 MG TABLET (FP) PO SCH (22:00)
[2022-02-25] MEDS: THIAMINE HCL 100 MG TABLET (FP) PO SCH (22:10)
[2022-02-25] MEDS: MELATONIN 5 MG TABLETS PO SCH (22:14)
[2022-02-26] MEDS ORDERED: chlordiazePOXIDE HCL 10 MG CAPSULE PO PRN
[2022-02-26] MEDS: hydrOXYzine PAMOATE 25 MG CAPSULE (FP) PO SCH ×2 (06:22→10:27)
[2022-02-26] MEDS: chlordiazePOXIDE HCL 10 MG CAPSULE PO SCH ×2 (06:22→10:27)
[2022-02-26] MEDS: INSULIN SLIDING SCALE (NOVOLOG) 1 VIAL SQ SCH (06:24)
[2022-02-26 09:09] VITALS: BP 158/83; PULSE 99; TEMP 97.8
[2022-02-26] MEDS: amLODIPine BESYLATE 5 MG TABLET (FP) PO SCH (10:27)
[2022-02-26] MEDS: PRENATAL VITAMINS W/ FOLIC ACID TABLET (FP) PO SCH (10:27)
[2022-02-26] MEDS: NICOTINE 7 MG/24 HOURS TOPICAL PATCH TD SCH (10:28)
[2022-02-27] MEDS ORDERED: chlordiazePOXIDE HCL 10 MG CAPSULE PO SCH (05:00)
[2022-02-28] MEDS ORDERED: chlordiazePOXIDE HCL 10 MG CAPSULE PO ONE (05:00)
== END 2022-02-26 11:30 | disposition left against medical advice (07) | DRG 770 ==
LOC: YASAS 15:35 → Y3N 20:38
PROVIDERS: ADMIT Allergy & Immunology; ATTEND Surgery
PROC: HZ2ZZZZ Detoxification Services for Substance Abuse Treatment (ICD-10-PCS; principal; 2022-02-23)
DX: F10.230 Alcohol dependence with withdrawal, uncomplicated (principal); F14.20 Cocaine dependence, uncomplicated; F17.210 Nicotine dependence, cigarettes, uncomplicated; F19.282 Other psychoactive substance dependence with psychoactive substance-induced sleep disorder; F19.24 Other psychoactive substance dependence with psychoactive substance-induced mood disorder; F41.9 Anxiety disorder, unspecified; F32.A Depression, unspecified; E11.65 Type 2 diabetes mellitus with hyperglycemia; Z79.4 Long term (current) use of insulin; Z91.14 Patient's other noncompliance with medication regimen; Z88.0 Allergy status to penicillin
CPT/HCPCS: 36415; 80053; 82962; 85027; 86593; 86780; C9803-CS; U0003; U0005

== ENCOUNTER 2022-12-16 13:34 | Inpatient (IN) | payer OTHER ==
[2022-12-16 14:04] VITALS: BMI 35.8
[2022-12-16] MEDS ORDERED: chlordiazePOXIDE HCL 25 MG CAPSULE PO PRN (15:42)
[2022-12-16] MEDS ORDERED: NALOXONE HCL (KLOXXADO) 8 MG SPRAY NS PRN (15:42)
[2022-12-16] MEDS ORDERED: POLYETHYLENE GLYCOL (HEALTHYLAX) 3350 17 GM PACKET PO PRN (15:42)
[2022-12-16] MEDS ORDERED: BENZOCAINE/MENTHOL (CHLORASEPTIC ) LOZENGE MM PRN (15:42)
[2022-12-16] MEDS ORDERED: hydrOXYzine PAMOATE 25 MG CAPSULE (FP) PO PRN (15:42)
[2022-12-16] MEDS ORDERED: DICYCLOMINE HCL 10 MG CAPSULE PO PRN (15:42)
[2022-12-16] MEDS ORDERED: NALOXONE HCL 0.4 MG/ML VIAL IM PRN (15:42)
[2022-12-16] MEDS ORDERED: BENZONATATE 200 MG CAPSULE PO PRN (15:42)
[2022-12-16] MEDS ORDERED: BISMUTH SUBSALICYLATE 524 MG/30 ML PO PRN (15:42)
[2022-12-16] MEDS ORDERED: MAGNESIUM HYDROX 2400MG/30ML ORAL SUSPENSION 30 ML CUP PO PRN (15:42)
[2022-12-16] MEDS ORDERED: IBUPROFEN 400 MG TABLET (FP) PO PRN (15:42)
[2022-12-16] MEDS ORDERED: METHOCARBAMOL 500 MG TABLET PO PRN (15:42)
[2022-12-16] MEDS ORDERED: NICOTINE POLACRILEX 2 MG GUM BUC PRN (15:42)
[2022-12-16] MEDS ORDERED: LOPERAMIDE HCL 2 MG CAPSULE PO PRN (15:42)
[2022-12-16] MEDS ORDERED: MAG HYDROX/AL HYDROX/SIMETH 30 ML UNIT-DOSE CUP PO PRN (15:42)
[2022-12-16] MEDS ORDERED: IBUPROFEN 600 MG TABLET (FP) PO PRN (15:42)
[2022-12-16] MEDS ORDERED: ONDANSETRON *ODT* 4 MG TABLET SL PRN (15:42)
[2022-12-16] MEDS ORDERED: guaiFENesin 600 MG TABLET.ER (FP) PO PRN (15:42)
[2022-12-16] MEDS: ACETAMINOPHEN 325 MG TABLET (FP) PO PRN (17:12)
[2022-12-16] MEDS: chlordiazePOXIDE HCL 25 MG CAPSULE PO SCH ×2 (17:51→22:29)
[2022-12-16] MEDS: INSULIN SLIDING SCALE (NOVOLOG) 1 VIAL SQ SCH (18:49)
[2022-12-16] MEDS: THIAMINE HCL 100 MG TABLET (FP) PO SCH (22:28)
[2022-12-16] MEDS: MELATONIN 5 MG TABLETS PO SCH (22:28)
[2022-12-17] MEDS: chlordiazePOXIDE HCL 25 MG CAPSULE PO SCH ×4 (05:56→22:27)
[2022-12-17] MEDS: INSULIN SLIDING SCALE (NOVOLOG) 1 VIAL SQ SCH ×3 (06:28→16:56)
[2022-12-17] MEDS: PRENATAL VITAMINS W/ FOLIC ACID TABLET (FP) PO SCH (10:38)
[2022-12-17] MEDS: NICOTINE 14 MG/24 HOURS TOPICAL PATCH TD SCH (10:38)
[2022-12-17 11:39] LABS: HEMATOCRIT 38.1 % (35.4-49); HEMOGLOBIN 12.4 GM/dL (11.7-16.9); MCH 27.1 pg (25.7-33.7); MCHC 32.5 g/dl (32.0-35.9); MEAN CELL VOLUME 83.4 fl (80-96); MEAN PLT VOLUME 8.8 fl (7.5-11.1); PLATELET COUNT 179 10^3/uL (134-434); RBC 4.57 M/mm3 (4.00-5.60); RDW 13.2 % (11.9-15.9); WHITE BLOOD COUNT 4.6 K/mm3 (4.0-10.0)
[2022-12-17 11:44] LABS: POTASSIUM 4.1 mmol/L (3.5-5.1)
[2022-12-17 12:01] LABS: BILIRUBIN,TOTAL 0.2 mg/dL (0.2-1); CREATININE 0.8 mg/dL (0.55-1.3); TOT PROT 5.8 g/dl (6.4-8.2)
[2022-12-17 12:04] LABS: CALCIUM 8.6 mg/dL (8.5-10.1)
[2022-12-17] MEDS: MELATONIN 5 MG TABLETS PO SCH (22:26)
[2022-12-17] MEDS: THIAMINE HCL 100 MG TABLET (FP) PO SCH (22:27)
[2022-12-18] MEDS: ACETAMINOPHEN 325 MG TABLET (FP) PO PRN (03:54)
[2022-12-18] MEDS: chlordiazePOXIDE HCL 25 MG CAPSULE PO SCH ×3 (05:54→10:44)
[2022-12-18] MEDS: INSULIN SLIDING SCALE (NOVOLOG) 1 VIAL SQ SCH (06:22)
[2022-12-18] MEDS ORDERED: INSULIN SLIDING SCALE (NOVOLOG) 1 VIAL SQ ONE (06:33)
[2022-12-18 06:39] VITALS: RESP 16; TEMP 97.7
[2022-12-18 09:14] VITALS: BP 157/88; PULSE 93
[2022-12-18] MEDS: PRENATAL VITAMINS W/ FOLIC ACID TABLET (FP) PO SCH (10:46)
[2022-12-18] MEDS: NICOTINE 14 MG/24 HOURS TOPICAL PATCH TD SCH (10:46)
[2022-12-19] MEDS ORDERED: chlordiazePOXIDE HCL 10 MG CAPSULE PO PRN
[2022-12-19] MEDS ORDERED: chlordiazePOXIDE HCL 10 MG CAPSULE PO SCH (05:00)
[2022-12-20] MEDS ORDERED: chlordiazePOXIDE HCL 10 MG CAPSULE PO SCH (05:00)
[2022-12-21] MEDS ORDERED: chlordiazePOXIDE HCL 10 MG CAPSULE PO ONE (05:00)
== END 2022-12-18 11:43 | disposition left against medical advice (07) | DRG 770 ==
LOC: YASAS 13:34 → Y3N 15:58
PROVIDERS: ADMIT Allergy & Immunology; ATTEND Surgery
PROC: HZ2ZZZZ Detoxification Services for Substance Abuse Treatment (ICD-10-PCS; principal; 2022-12-16)
DX: F10.230 Alcohol dependence with withdrawal, uncomplicated (principal); F14.20 Cocaine dependence, uncomplicated; F17.210 Nicotine dependence, cigarettes, uncomplicated; F41.8 Other specified anxiety disorders; G47.00 Insomnia, unspecified; I10 Essential (primary) hypertension; E11.9 Type 2 diabetes mellitus without complications; Z79.4 Long term (current) use of insulin; Z86.19 Personal history of other infectious and parasitic diseases; Z88.0 Allergy status to penicillin; Z91.013 Allergy to seafood
CPT/HCPCS: 36415; 80053; 82962; 85027; 86593; 86780; 87635; 87811

== ENCOUNTER 2023-04-22 15:10 | Inpatient (IN) | payer OTHER ==
[2023-04-22 18:22] VITALS: BMI 35.5
[2023-04-22] MEDS ORDERED: NALOXONE HCL (KLOXXADO) 8 MG SPRAY NS PRN (20:08)
[2023-04-22] MEDS ORDERED: NALOXONE HCL 0.4 MG/ML VIAL IM PRN (20:08)
[2023-04-22] MEDS ORDERED: LOPERAMIDE HCL 2 MG CAPSULE PO PRN (20:08)
[2023-04-22] MEDS ORDERED: POLYETHYLENE GLYCOL (HEALTHYLAX) 3350 17 GM PACKET PO PRN (20:08)
[2023-04-22] MEDS ORDERED: ACETAMINOPHEN 325 MG TABLET (FP) PO PRN (20:08)
[2023-04-22] MEDS ORDERED: IBUPROFEN 400 MG TABLET (FP) PO PRN (20:08)
[2023-04-22] MEDS ORDERED: guaiFENesin 600 MG TABLET.ER (FP) PO PRN (20:08)
[2023-04-22] MEDS ORDERED: NICOTINE POLACRILEX 2 MG GUM BUC PRN (20:08)
[2023-04-22] MEDS ORDERED: ONDANSETRON *ODT* 4 MG TABLET SL PRN (20:08)
[2023-04-22] MEDS ORDERED: BISMUTH SUBSALICYLATE 524 MG/30 ML PO PRN (20:08)
[2023-04-22] MEDS ORDERED: IBUPROFEN 600 MG TABLET (FP) PO PRN (20:08)
[2023-04-22] MEDS ORDERED: MAGNESIUM HYDROX 2400MG/30ML ORAL SUSPENSION 30 ML CUP PO PRN (20:08)
[2023-04-22] MEDS ORDERED: BENZOCAINE/MENTHOL (CHLORASEPTIC ) LOZENGE MM PRN (20:08)
[2023-04-22] MEDS ORDERED: MAG HYDROX/AL HYDROX/SIMETH 30 ML UNIT-DOSE CUP PO PRN (20:08)
[2023-04-22] MEDS ORDERED: BENZONATATE 200 MG CAPSULE PO PRN (20:08)
[2023-04-22] MEDS ORDERED: chlordiazePOXIDE HCL 25 MG CAPSULE PO PRN (20:12)
[2023-04-22] MEDS: MELATONIN 5 MG TABLETS PO SCH (23:01)
[2023-04-22] MEDS: THIAMINE HCL 100 MG TABLET (FP) PO SCH (23:01)
[2023-04-22] MEDS: chlordiazePOXIDE HCL 25 MG CAPSULE PO SCH (23:02)
[2023-04-22] MEDS: METHOCARBAMOL 500 MG TABLET PO PRN (23:02)
[2023-04-23] MEDS: chlordiazePOXIDE HCL 25 MG CAPSULE PO SCH ×4 (05:45→22:52)
[2023-04-23] MEDS: INSULIN SLIDING SCALE (NOVOLOG) 1 VIAL SQ SCH ×2 (07:02→17:18)
[2023-04-23] MEDS: PRENATAL VITAMINS W/ FOLIC ACID TABLET (FP) PO SCH (10:12)
[2023-04-23] MEDS: NICOTINE 14 MG/24 HOURS TOPICAL PATCH TD SCH (10:19)
[2023-04-23 11:00] LABS: CHLORIDE 100 mmol/L (98-107); POTASSIUM 4.2 mmol/L (3.5-5.1); SODIUM 136 mmol/L (136-145)
[2023-04-23 11:03] LABS: HEMATOCRIT 40.9 % (35.4-49); HEMOGLOBIN 13.2 GM/dL (11.7-16.9); MCH 26.6 pg (25.7-33.7); MCHC 32.4 g/dl (32.0-35.9); MEAN CELL VOLUME 82.2 fl (80-96); MEAN PLT VOLUME 8.2 fl (7.5-11.1); PLATELET COUNT 213 10^3/uL (134-434); RBC 4.97 M/mm3 (4.00-5.60); RDW 13.1 % (11.9-15.9)
[2023-04-23 11:21] LABS: CALCIUM 8.8 mg/dL (8.5-10.1)
[2023-04-23 11:23] LABS: ALBUMIN 3.5 g/dl (3.4-5.0); ANION GAP 7 mmol/L (4-13); BLOOD UREA NITROGEN 19.2 mg/dL (7-18); CO2 29 mmol/L (21-32); GLUCOSE,RANDOM 258 mg/dL (74-106)
[2023-04-23 11:25] LABS: CREATININE 0.9 mg/dL (0.55-1.3); SGOT/AST 16 U/L (15-37); SGPT/ALT 32 U/L (13-61)
[2023-04-23 11:26] LABS: BILIRUBIN,TOTAL 0.6 mg/dL (0.2-1); TOT PROT 6.7 g/dl (6.4-8.2)
[2023-04-23 11:28] LABS: ALK PHOS 120 U/L (45-117)
[2023-04-23] MEDS ORDERED: INSULIN SLIDING SCALE (NOVOLOG) 1 VIAL SQ ONE (17:14)
[2023-04-23] MEDS: MELATONIN 5 MG TABLETS PO SCH (22:52)
[2023-04-23] MEDS: METHOCARBAMOL 500 MG TABLET PO PRN (22:52)
[2023-04-23] MEDS: THIAMINE HCL 100 MG TABLET (FP) PO SCH (22:52)
[2023-04-24] MEDS: hydrOXYzine PAMOATE 25 MG CAPSULE (FP) PO PRN (02:18)
[2023-04-24] MEDS: chlordiazePOXIDE HCL 25 MG CAPSULE PO SCH ×4 (05:40→23:10)
[2023-04-24] MEDS ORDERED: INSULIN SLIDING SCALE (NOVOLOG) 1 VIAL SQ ONE (06:41)
[2023-04-24] MEDS: INSULIN SLIDING SCALE (NOVOLOG) 1 VIAL SQ SCH ×2 (07:58→18:00)
[2023-04-24] MEDS: NICOTINE 14 MG/24 HOURS TOPICAL PATCH TD SCH (10:21)
[2023-04-24] MEDS: PRENATAL VITAMINS W/ FOLIC ACID TABLET (FP) PO SCH (10:22)
[2023-04-24] MEDS ORDERED: cloNIDine HCL 0.1 MG TABLET PO ONE (17:45)
[2023-04-24] MEDS: MELATONIN 5 MG TABLETS PO SCH (23:10)
[2023-04-24] MEDS: THIAMINE HCL 100 MG TABLET (FP) PO SCH (23:10)
[2023-04-25] MEDS ORDERED: chlordiazePOXIDE HCL 10 MG CAPSULE PO PRN
[2023-04-25] MEDS: chlordiazePOXIDE HCL 10 MG CAPSULE PO SCH ×4 (06:22→23:53)
[2023-04-25] MEDS: INSULIN SLIDING SCALE (NOVOLOG) 1 VIAL SQ SCH ×3 (07:03→18:50)
[2023-04-25] MEDS: NICOTINE 14 MG/24 HOURS TOPICAL PATCH TD SCH (10:56)
[2023-04-25] MEDS: PRENATAL VITAMINS W/ FOLIC ACID TABLET (FP) PO SCH (10:56)
[2023-04-25] MEDS ORDERED: INSULIN SLIDING SCALE (NOVOLOG) 1 VIAL SQ SCH (17:11)
[2023-04-25] MEDS: THIAMINE HCL 100 MG TABLET (FP) PO SCH (22:40)
[2023-04-25] MEDS: traZODone HCL 100 MG TABLET (FP) PO SCH (22:40)
[2023-04-25] MEDS: MELATONIN 5 MG TABLETS PO SCH (22:40)
[2023-04-25] MEDS: METHOCARBAMOL 500 MG TABLET PO PRN (22:40)
[2023-04-26] MEDS: chlordiazePOXIDE HCL 10 MG CAPSULE PO SCH ×3 (05:00→17:40)
[2023-04-26] MEDS: INSULIN SLIDING SCALE (NOVOLOG) 1 VIAL SQ SCH ×2 (07:24→17:39)
[2023-04-26] MEDS: PRENATAL VITAMINS W/ FOLIC ACID TABLET (FP) PO SCH ×2 (11:17→11:25)
[2023-04-26] MEDS: NICOTINE 14 MG/24 HOURS TOPICAL PATCH TD SCH ×2 (11:17→11:25)
[2023-04-26] MEDS: MELATONIN 5 MG TABLETS PO SCH (21:59)
[2023-04-26] MEDS: THIAMINE HCL 100 MG TABLET (FP) PO SCH (21:59)
[2023-04-26] MEDS: traZODone HCL 100 MG TABLET (FP) PO SCH (21:59)
[2023-04-27] MEDS ORDERED: chlordiazePOXIDE HCL 10 MG CAPSULE PO ONE (05:00)
[2023-04-27] MEDS: INSULIN SLIDING SCALE (NOVOLOG) 1 VIAL SQ SCH ×2 (06:01→16:40)
[2023-04-27] MEDS: amLODIPine BESYLATE 10 MG TABLET (FP) PO SCH (11:00)
[2023-04-27] MEDS: NICOTINE 14 MG/24 HOURS TOPICAL PATCH TD SCH (11:00)
[2023-04-27] MEDS: PRENATAL VITAMINS W/ FOLIC ACID TABLET (FP) PO SCH (11:00)
[2023-04-27] MEDS: MELATONIN 5 MG TABLETS PO SCH (22:44)
[2023-04-27] MEDS: THIAMINE HCL 100 MG TABLET (FP) PO SCH (22:44)
[2023-04-27] MEDS: METHOCARBAMOL 500 MG TABLET PO PRN (22:44)
[2023-04-27] MEDS: traZODone HCL 100 MG TABLET (FP) PO SCH (22:45)
[2023-04-27] MEDS: hydrOXYzine PAMOATE 25 MG CAPSULE (FP) PO PRN (22:45)
[2023-04-28] MEDS: INSULIN SLIDING SCALE (NOVOLOG) 1 VIAL SQ SCH ×2 (07:47→17:15)
[2023-04-28] MEDS: amLODIPine BESYLATE 10 MG TABLET (FP) PO SCH (09:51)
[2023-04-28] MEDS: PRENATAL VITAMINS W/ FOLIC ACID TABLET (FP) PO SCH (09:51)
[2023-04-28] MEDS: NICOTINE 14 MG/24 HOURS TOPICAL PATCH TD SCH (09:51)
[2023-04-28] MEDS ORDERED: INSULIN SLIDING SCALE (NOVOLOG) 1 VIAL SQ ONE (17:22)
[2023-04-28] MEDS: traZODone HCL 100 MG TABLET (FP) PO SCH (22:47)
[2023-04-28] MEDS: MELATONIN 5 MG TABLETS PO SCH (22:47)
[2023-04-28] MEDS: THIAMINE HCL 100 MG TABLET (FP) PO SCH (22:47)
[2023-04-29] MEDS: INSULIN SLIDING SCALE (NOVOLOG) 1 VIAL SQ SCH (07:24)
[2023-04-29] MEDS: PRENATAL VITAMINS W/ FOLIC ACID TABLET (FP) PO SCH (10:37)
[2023-04-29] MEDS: amLODIPine BESYLATE 10 MG TABLET (FP) PO SCH (10:37)
[2023-04-29] MEDS: NICOTINE 14 MG/24 HOURS TOPICAL PATCH TD SCH (10:37)
[2023-04-29 13:47] VITALS: BP 133/72; PULSE 104; RESP 20; TEMP 97.8
== END 2023-04-29 13:51 | disposition home or self-care (01) | DRG 774 ==
LOC: YASAS 15:10 → Y3N 22:25
PROVIDERS: ADMIT Allergy & Immunology; ATTEND Surgery
PROC: HZ2ZZZZ Detoxification Services for Substance Abuse Treatment (ICD-10-PCS; principal; 2023-04-22)
DX: F10.230 Alcohol dependence with withdrawal, uncomplicated (principal); F14.20 Cocaine dependence, uncomplicated; F17.210 Nicotine dependence, cigarettes, uncomplicated; F19.282 Other psychoactive substance dependence with psychoactive substance-induced sleep disorder; F19.24 Other psychoactive substance dependence with psychoactive substance-induced mood disorder; F41.8 Other specified anxiety disorders; U07.1 COVID-19; I10 Essential (primary) hypertension; E11.9 Type 2 diabetes mellitus without complications; Z79.4 Long term (current) use of insulin; Z86.19 Personal history of other infectious and parasitic diseases; Z99.89 Dependence on other enabling machines and devices
CPT/HCPCS: 36415; 80053; 80307; 82962; 85027; 86593; 86780; 87635

== ENCOUNTER 2024-06-05 13:34 | Inpatient (IN) | payer OTHER ==
[2024-06-05 14:10] VITALS: BMI 33.8
[2024-06-05] MEDS ORDERED: BENZOCAINE/MENTHOL (CHLORASEPTIC ) LOZENGE MM PRN (14:35)
[2024-06-05] MEDS ORDERED: chlordiazePOXIDE HCL 25 MG CAPSULE PO PRN (14:35)
[2024-06-05] MEDS ORDERED: BENZONATATE 200 MG CAPSULE PO PRN (14:35)
[2024-06-05] MEDS ORDERED: MAG HYDROX/AL HYDROX/SIMETH 30 ML UNIT-DOSE CUP PO PRN (14:35)
[2024-06-05] MEDS ORDERED: DICYCLOMINE HCL 10 MG CAPSULE PO PRN (14:35)
[2024-06-05] MEDS ORDERED: ACETAMINOPHEN 325 MG TABLET (FP) PO PRN (14:35)
[2024-06-05] MEDS ORDERED: MAGNESIUM HYDROX 2400MG/30ML ORAL SUSPENSION 30 ML CUP PO PRN (14:35)
[2024-06-05] MEDS ORDERED: IBUPROFEN 400 MG TABLET (FP) PO PRN (14:35)
[2024-06-05] MEDS ORDERED: BISMUTH SUBSALICYLATE 262 MG/15 ML BTL PO PRN (14:35)
[2024-06-05] MEDS ORDERED: POLYETHYLENE GLYCOL (HEALTHYLAX) 3350 17 GM PACKET PO PRN (14:35)
[2024-06-05] MEDS ORDERED: LOPERAMIDE HCL 2 MG CAPSULE PO PRN (14:35)
[2024-06-05] MEDS ORDERED: NALOXONE (NARCAN) HCL 4 MG/0.1 ML SPRAY NS PRN (14:35)
[2024-06-05] MEDS ORDERED: guaiFENesin 600 MG TABLET.ER (FP) PO PRN (14:35)
[2024-06-05] MEDS ORDERED: IBUPROFEN 600 MG TABLET (FP) PO PRN (14:35)
[2024-06-05] MEDS ORDERED: ONDANSETRON *ODT* 4 MG TABLET SL PRN (14:35)
[2024-06-05] MEDS ORDERED: METHOCARBAMOL 500 MG TABLET PO PRN (14:35)
[2024-06-05] MEDS: chlordiazePOXIDE HCL 25 MG CAPSULE PO SCH (17:49)
[2024-06-05] MEDS: MELATONIN 5 MG TABLETS PO SCH (22:47)
[2024-06-05] MEDS: traZODone HCL 100 MG TABLET (FP) PO SCH (22:47)
[2024-06-05] MEDS: THIAMINE 100 MG TABLET PO SCH (22:47)
[2024-06-05] MEDS: hydrOXYzine PAMOATE 25 MG CAPSULE (FP) PO PRN (22:50)
[2024-06-06] MEDS: PRENATAL VITAMINS W/ FOLIC ACID TABLET (FP) PO SCH (10:27)
[2024-06-06] MEDS: amLODIPine BESYLATE 10 MG TABLET (FP) PO SCH (10:27)
[2024-06-06] MEDS: traZODone HCL 50 MG TABLET (FP) PO SCH (22:24)
[2024-06-07] MEDS: chlordiazePOXIDE HCL 25 MG CAPSULE PO SCH (05:58)
[2024-06-07 09:24] LABS: CHLORIDE 104 mmol/L (98-107); POTASSIUM 4.3 mmol/L (3.5-5.1); SODIUM 135 mmol/L (136-145)
[2024-06-07 09:30] LABS: BASO % 0.8 % (0-2.0); EOS % 2.2 % (0-4.5); HEMATOCRIT 37.7 % (35.4-49); HEMOGLOBIN 12.6 GM/dL (11.7-16.9); LYMPH % 39.8 % (8-40); MCH 27.6 pg (25.7-33.7); MCHC 33.4 g/dl (32.0-35.9); MEAN CELL VOLUME 82.8 fl (80-96); MEAN PLT VOLUME 8.9 fl (7.5-11.1); MONO % 6.2 % (3.8-10.2); PLATELET COUNT 170 10^3/uL (134-434); RBC 4.55 M/mm3 (4.00-5.60); RDW 13.9 % (11.9-15.9); WHITE BLOOD COUNT 4.5 K/mm3 (4.0-10.0)
[2024-06-07 09:31] LABS: CALCIUM 8.2 mg/dL (8.5-10.1)
[2024-06-07 09:32] LABS: ALBUMIN 2.9 g/dl (3.4-5.0); ANION GAP 5 mmol/L (4-13); BLOOD UREA NITROGEN 10.4 mg/dL (7-18); CO2 26 mmol/L (21-32); GLUCOSE,RANDOM 445 mg/dL (74-106)
[2024-06-07 09:35] LABS: CREATININE 0.9 mg/dL (0.55-1.3); SGOT/AST 12 U/L (15-37); SGPT/ALT 26 U/L (13-61)
[2024-06-07 09:36] LABS: BILIRUBIN,TOTAL 0.3 mg/dL (0.2-1); TOT PROT 5.7 g/dl (6.4-8.2)
[2024-06-07 09:38] LABS: ALK PHOS 194 U/L (45-117)
[2024-06-07 10:34] VITALS: BP 139/79; PULSE 95; RESP 18; TEMP 98
[2024-06-07] MEDS: NALOXONE (NYS OPIOID OVERDOSE PROGRAM) 4 MG/0.1 ML SPRAY NS SCH (12:27)
[2024-06-07] MEDS ORDERED: INSULIN ASPART SLIDING SCALE (NOVOLOG) 1 VIAL SQ SCH (16:30)
[2024-06-07] MEDS ORDERED: metFORMIN HCL 500 MG TABLET (FP) PO SCH (16:30)
[2024-06-08] MEDS ORDERED: chlordiazePOXIDE HCL 10 MG CAPSULE PO PRN
[2024-06-08] MEDS ORDERED: chlordiazePOXIDE HCL 10 MG CAPSULE PO SCH (05:00)
[2024-06-09] MEDS ORDERED: chlordiazePOXIDE HCL 10 MG CAPSULE PO SCH (05:00)
[2024-06-10] MEDS ORDERED: chlordiazePOXIDE HCL 10 MG CAPSULE PO ONE (05:00)
== END 2024-06-07 12:07 | disposition left against medical advice (07) | DRG 774 ==
LOC: YASAS 13:34 → Y6N 15:11
PROVIDERS: ADMIT Allergy & Immunology; ATTEND Surgery
PROC: HZ2ZZZZ Detoxification Services for Substance Abuse Treatment (ICD-10-PCS; principal; 2024-06-05)
DX: F10.230 Alcohol dependence with withdrawal, uncomplicated (principal); F14.20 Cocaine dependence, uncomplicated; F17.210 Nicotine dependence, cigarettes, uncomplicated; F19.24 Other psychoactive substance dependence with psychoactive substance-induced mood disorder; F19.282 Other psychoactive substance dependence with psychoactive substance-induced sleep disorder; F41.8 Other specified anxiety disorders; I10 Essential (primary) hypertension; E11.9 Type 2 diabetes mellitus without complications; Z20.2 Contact with and (suspected) exposure to infections with a predominantly sexual mode of transmission; F91.8 Other conduct disorders; Z91.199 Patient's noncompliance with other medical treatment and regimen due to unspecified reason; Z88.0 Allergy status to penicillin
CPT/HCPCS: 36415; 80053; 80305; 80307; 82962; 85025; 86593; 86780; 93005; 93010